=== PATIENT | female | born 1980 | race Caucasian/White ===

== ENCOUNTER → 2016-09-19 | Outpatient (CLI) | payer BC | LOC: RAD 11:31 | PROVIDERS: ATTEND Student in an Organized Health Care Education/Training Program | DX: E22.1 Hyperprolactinemia (principal) | CPT/HCPCS: 70553; A9577 ==

== ENCOUNTER 2016-10-07 | Emergency (ER) | payer BC ==
[2016-10-07 00:18] VITALS: BP 124/83
== END 2016-10-07 02:09 | disposition left against medical advice (07) ==
LOC: ER
DX: Z53.21 Procedure and treatment not carried out due to patient leaving prior to being seen by health care provider (principal)

== ENCOUNTER 2016-10-25 15:10 | Observation (INO) | payer BC ==
[2016-10-25] MEDS ORDERED: NORMAL SALINE 1000 ML 1,000 ML IV ONE (15:37)
--- NOTE | 2016-10-25 17:50 | ER Document Report ---
ED Syncope and Near Syncope - General Chief Complaint: Fainting Stated Complaint: HEADACHE Time Seen by Provider: 10/25/16 15:36 Mode of Arrival: Ambulatory Information source: Patient TRAVEL OUTSIDE OF THE [place] 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 Position/Activity at time of episode: Activity - WALKING Quality of pain: Achy, Dull Context: Collapsed, Confused after event, Lost consciousness. denies: , Seizure activity observed Duration of LOC (min): 7 Injury location: None Current symptoms: Headache, Lightheaded, Short of breath Similar symptoms previously: Yes - 2 d AGO, SIMILAR CIRCUMSTANCES Recently seen / treated by doctor: Yes - UNDER CARE OF HEM-ONC, Fe INFUSION SCHEDULED 10/29 - Related Data Allergies/Adverse Reactions: Penicillins Allergy (Verified 05/05/16 22:26) Past Medical History - General Information source: Patient - Social History Smoking Status: Unknown if Ever Smoked Frequency of alcohol use: Rare Drug Abuse: None Lives with: Family Family History: CVA, Hypertension Patient has suicidal ideation: No Patient has homicidal ideation: No - Past Medical History Cardiac Medical History: Reports: None Pulmonary Medical History: Reports: None Neurological Medical History: Reports: None. Denies: Hx Seizures Endocrine Medical History: Reports: None Renal/ Medical History: Reports: None. Denies: Hx Peritoneal Dialysis Malignancy Medical History: Reports: Other - CHRONIC ANEMIA, W/U UNDERWAY GI Medical History: Reports: None Musculoskeltal Medical History: Reports None Skin Medical History: Reports None Psychiatric Medical History: Reports: Hx Anxiety, Hx Bipolar Disorder, Hx Depression Traumatic Medical History: Reports: None Past Surgical History: Reports: Hx Bowel Surgery - Gastric bypass, Hx Cholecystectomy, Hx Gastric Bypass Surgery, Hx Tonsillectomy, Hx Tubal Ligation - Immunizations Immunizations up to date: Yes Hx Diphtheria, Pertussis, Tetanus Vaccination: Yes Review of Systems - Review of Systems Constitutional: Weakness EENT: No symptoms reported Cardiovascular: See HPI Respiratory: Short of breath Gastrointestinal: Nausea Genitourinary: No symptoms reported Female Genitourinary: No symptoms reported Musculoskeletal: No symptoms reported Skin: No symptoms reported Hematologic/Lymphatic: Anemia Neurological/Psychological: See HPI -: Yes All other systems reviewed and negative Physical Exam - Vital signs Vitals: Temp Pulse Resp BP Pulse Ox 97.5 F 72 16 125/79 100 10/25/16 15:24 10/25/16 15:24 10/25/16 15:24 10/25/16 15:24 10/25/16 15:24 Interpretation: Normal - General General appearance: Appears well, Alert In distress: None - HEENT Head: Normocephalic Eyes: Pale conjunctiva Ears: Normal Nasal: Normal Mouth/Lips: Normal Mucous membranes: Normal Neck: Normal - Respiratory Respiratory status: No respiratory distress Breath sounds: Normal - Cardiovascular Rhythm: Regular Heart sounds: Normal auscultation Murmur: No - Abdominal Inspection: Normal Distension: No distension Bowel sounds: Normal - Back Back: Normal - Extremities General upper extremity: Normal inspection General lower extremity: Normal inspection. No: Tender, Edema - Neurological Neuro grossly intact: Yes Cognition: Normal Orientation: AAOx4 - Psychological Associated symptoms: Normal affect, Normal mood - Skin Skin Temperature: Warm Skin Moisture: Dry Skin Color: Pale Skin Turgor: Elastic Course - Re-evaluation Re-evalutation: 10/25/16 22:19 Patient states she feels a little better. Results of laboratory and radiographic studies discussed. - Vital Signs Vital signs: Temp Pulse Resp BP Pulse Ox 98.0 F 74 15 124/80 99 10/25/16 19:28 10/25/16 19:10 10/25/16 22:23 10/25/16 22:23 10/25/16 22:23 - Laboratory Result Diagrams: 10/25/16 17:05 10/25/16 17:05 Laboratory results interpreted by me: 10/25/16 17:05 WBC 3.0 L Hgb 8.9 L Hct 28.2 L MCV 65 L MCH 20.3 L MCHC 31.4 L RDW 17.1 H - Diagnostic Test Radiology reviewed: Image reviewed, Reports reviewed - EKG Interpretation by Me EKG shows normal: Sinus rhythm, [place], Intervals, QRS Complexes, ST-T Waves Rate: Normal Rhythm: NSR - Consults DR. FRANCIS Time consulted: 22:28 Consulted provider: will come to ER Discharge - Discharge Clinical Impression: Syncope Qualifiers: Syncope type: unspecified Qualified Code(s): R55 - Syncope and collapse Admitting Provider: Hospitalist Unit Admitted: Telemetry Referrals: ERIN CUELLAR DO [Primary Care Provider] - Follow up as needed
[2016-10-25 18:07] LABS: ABSOLUTE EOSINOPHILS # (AUTO) 0.1 10^3/uL (0.0-0.6); ABSOLUTE LYMPHOCYTES (AUTO) 0.7 10^3/uL (0.5-4.7); ABSOLUTE MONOCYTES (AUTO) 0.3 10^3/uL (0.1-1.4); ABSOLUTE NEUT (AUTO) 1.9 10^3/uL (1.7-8.2); BASOPHILS % (AUTO) 0.3 % (0-2); EOSINOPHILS % (AUTO) 1.8 % (0-6); HEMATOCRIT 28.2 % (36.0-47.0); HEMOGLOBIN 8.9 g/dL (12.0-15.5); HGB HCT DIFFERENCE -1.5; LYMPHOCYTES % (AUTO) 24.2 % (13-45); MEAN CORPUSCULAR HEMOGLOBIN 20.3 pg (27.0-33.4); MEAN CORPUSCULAR HGB CONC 31.4 g/dL (32.0-36.0); MONOCYTES % (AUTO) 10.7 % (3-13); RED BLOOD COUNT 4.37 10^6/uL (3.72-5.28); RED CELL DISTRIBUTION WIDTH 17.1 % (11.5-14.0)
[2016-10-25 18:15] LABS: ANION GAP 11 (5-19); BLOOD UREA NITROGEN 7 mg/dL (7-20); CALCIUM 9.3 mg/dL (8.4-10.2); CARBON DIOXIDE 28 mmol/L (22-30); CHLORIDE 104 mmol/L (98-107); CREATININE RESULT 0.79 mg/dL (0.52-1.25); GLUCOSE 83 mg/dL (75-110); POTASSIUM 4.5 mmol/L (3.6-5.0); SODIUM 142.7 mmol/L (137-145)
[2016-10-25 18:21] LABS: ALCOHOL < 10 mg/dL (NONE DETECTED)
[2016-10-25 18:42] LABS: ANISOCYTOSIS 1+; HYPOCHROMASIA 1+; MICROCYTOSIS 3+; OVALOCYTES SLIGHT; TOXIC GRANULATION SLIGHT
[2016-10-25 18:43] LABS: MEAN CORPUSCULAR VOLUME 65 fl (80-97)
--- NOTE | 2016-10-25 19:08 | EKG REPORT ---
SEVERITY:- NORMAL ECG - SINUS RHYTHM : Confirmed by: Willian Abarca MD 25-Oct-2016 19:07:24
[2016-10-25 22:37] LABS: ADD ON TESTING BLD IN LAB ACKNOWLEDGE
[2016-10-25 23:09] LABS: ALANINE AMINOTRANSFERASE 31 U/L (9-52); ALBUMIN 4.2 g/dL (3.5-5.0); ALKALINE PHOSPHATASE 74 U/L (38-126); ASPARTATE AMINO TRANSFERASE 30 U/L (14-36); BILIRUBIN,DIRECT 0.3 mg/dL (0.0-0.4); BILIRUBIN,TOTAL 0.3 mg/dL (0.2-1.3); MAGNESIUM 2.2 mg/dL (1.6-2.3)
[2016-10-25 23:21] LABS: CREATINE KINASE MB 0.56 ng/mL (<4.55)
[2016-10-25 23:22] LABS: TROPONIN I < 0.012 ng/mL
[2016-10-25] MEDS ORDERED: DEXTROSE 5%-NORMAL SALINE 1,000 ML IV PRN (23:56)
--- NOTE | 2016-10-26 00:32 | PDOC H&P ---
History of Present Illness Admission Date/PCP: 10/25/16 22:[address] Demarcus [facility] Dr. Amina Baird Patient complains of: syncope History of Present Illness: RONNIE STOREY is a 36 year old female with underlying bipolar disorder , history of alcohol abuse, but currently not drinking, anxiety, and currently undergoing workup for chronic anemia, to receive iron infusion on the ninth of this month, who presents to the emergency room for evaluation of her second syncopal episode in the past 48-72 hours. Patient has been discussed with emergency room physician who evaluated the patient. 2 nights ago, as she was walking to bed, her vision "grayed out," and she felt herself falling. She woke up sometime later lying in an "awkward position" on her bed. Prior to that episode, she had some mild chest and abdominal pain and headache. Nausea but no vomiting; states she can't vomit since her gastric bypass. No fever chills, diarrhea or dysuria. States she has had episodes of her vision "graying out" in the past, but typically only on the periphery of her vision. During The episode 2 nights ago when she actually had a syncopal episode, her vision "totally grayed out." Patient is a book retailer, and, while at work the evening of the fifth, she had another syncopal episode. Same vision changes, although "much quicker this time." Denies any head trauma. States the episode was recorded on security camera work, and she was out for "7 minutes." Similar mild headache and chest pain prior to the episode this evening at work, but no abdominal pain. Currently complaining only of mild headache along with mild bilateral calf discomfort, which is a chronic problem for her. No evidence of orthostatic vital signs on emergency room documentation this evening. Solid food intake has been somewhat less than usual over the last several days, but liquid intake has been normal. No recent change in her medications. Compliant with same. With neither episode did she experience fecal or urinary incontinence, or tongue biting. Basically unremarkable neurologic history with no prior seizure , stroke, TIA, or mini stroke. Underwent Holter monitor exam in 2013 for palpitations. Study revealed only evidence of sinus tachycardia. Report is noted. States she was told to return on a when necessary basis. States she was seen in the emergency room last April and was told she had an "arrhythmia." Review of the emergency room visit revealed an EKG showing only normal sinus rhythm. States she was told to follow with her primary care provider about this. Has not had a repeat Holter monitor or other cardiac study. Was seen in the emergency room for binge drinking at that time. Other than EKGs and Holter monitor, no other cardiac workup, including stress test or echocardiogram. Basically an unremarkable cardiac history, with no previous myocardial infarction or congestive heart failure. No problems with hypertension. No history of pulmonary embolus or DVT. No recent long trip with prolonged inactivity, or unusual lower extremity swelling or tenderness. No family history of early coronary artery disease, or early cardiac . Denies underlying thyroid difficulty. Occasional caffeine intake, but not very much or very often. No use of alcohol tobacco or illicit drugs. Laboratory results are listed in [place] and are reviewed. X-ray summary results are listed below, with full report(s) reviewed. . EKG reviewed. Social history/personal habits: . 4 children. Employment and personal habits as noted above. Allergies/adverse reactions are listed in [facility] [place] and are reviewed. Uncertain if she can tolerate cephalosporins. Home medications discussed with patient. Home medications initially autopopulated into [employer] may not accurately reflect patient's true medications, dosages, and/or frequencies. technical support analyst to reconcile medications. REVIEW OF SYSTEMS: Constitutional: No fever or chills. Eyes: Wears contacts. ENT: No swallowing problems or complaints. No hearing problems or complaints. Pulmonary: No current complaints. Cardiovascular: See history and present illness. Gastrointestinal: See history and present illness. Skin: No current complaints, including rashes. Hematologic: Easy bruising. Neurologic: See history and present illness. Musculoskeletal: See history and present illness. Joint pain from arthritis. Psychiatric: Mild Anxiety Endocrine: No current complaints, including polyuria. Genitourinary: No current complaints, including dysuria. PHYSICAL EXAMINATION: 5 feet 9 inches tall. 81.3 kg. BMI 26.5 kg/m. Blood pressure 120/79. 98% saturation on room air. Respirations are 19 and unlabored. Pulse 85 and regular. Temperature 98.0. Well-nourished well-developed young female appearing approximately her stated age. Pleasant awake alert and cooperative. No obvious distress other than somewhat anxious. No agitation. Female emergency room nurse Marycruz is present. Male phone operator is present. Patient approves. Skin is warm and dry. No grossly obvious evidence of rash in areas of skin examined. No subcutaneous nodules palpated. ENT: Hearing grossly normal to normal conversation. Tongue midline on protrusion pink and slightly moist. No evidence of trauma to tongue. Eyes: No scleral icterus. Pupils equal and reactive to light at 4 mm. [place] conjunctivae. No raccoon eyes. Neck is supple and nontender to gentle active range of motion and palpation. Midline trachea. No palpable thyroid nodule mass enlargement or tenderness. Lymphatic: No palpable cervical or clavicular nodes. Psychiatric: Reasonable insight into acute and chronic medical issues. Oriented to time location and why here. Lungs: Auscultation reveals clear and equal breath sounds bilaterally. No use of accessory respiratory muscles. Cardiovascular: Heart regular rate and rhythm, without gallop murmur or rub. No carotid or abdominal aortic bruits. No ankle or pedal edema. palpable dorsalis pedis pulses. Abdomen: soft, slightly, distended nontender with positive bowel sounds. Unable to adequately evaluate abdomen for masses or organomegaly due to distention. Extremities: Hands and feet are warm and dry. Minimal bilateral calf tenderness to compression, without palpable venous cord. A chronic condition, without recent change, according to patient.. No grossly obvious visual evidence of calf swelling. Gentle manipulation of upper and lower extremities fails to reveal any obvious evidence of injury or instability to involved major joints. Neurologic: Cranial Nerves II through XII are grossly intact. Light touch intact at face, upper and lower extremities. Motor function of major muscle groups upper and lower extremities 5 over 5 and symmetric. Patellar reflexes absent. Absent Babinski. Past Medical History Cardiac Medical History: Reports: None Denies: Congestive Heart Failure, DVT, Myocardial Infarction, Hyperlipidema, Hypertension, Pulmonary Embolism Pulmonary Medical History: Reports: None Denies: Asthma, Chronic Obstructive Pulmonary Disease (COPD), Sleep Apnea EENT Medical History: Reports: Eyes - Wears contacts Denies: Ears, Throat Neurological Medical History: Reports: None Denies: Hemorrhagic CVA, Ischemic CVA, Seizures Endocrine Medical History: Reports: None Denies: Diabetes Mellitus Type 1, Diabetes Mellitus Type 2, Hyperthyroidism, Hypothyroidism Renal/ Medical History: Reports: None GI Medical History: Reports: Gastroesophageal Reflux Disease - Questionable mild reflux., Other - Recently discovered heme positive stool. Outpatient workup underway. Denies: Cirrhosis, Hepatitis, Peptic Ulcer Disease Musculoskeltal Medical History: Reports: None Denies: Arthritis Skin Medical History: Reports: None Psychiatric Medical History: Reports: Alcohol Dependency - History of; no alcohol use at present., Bipolar Disorder, Depression, General Anxiety Disorder Denies: Substance Abuse, Tobacco Dependency Traumatic Medical History: Reports: None Hematology: Reports: Anemia - Outpatient workup underway. Intravenous iron infusion October 29. Infectious Medical History: Denies: Clostridium Difficile, Hepatitis B, Hepatitis C, Methicillin- Resistant Staph Aureus Past Surgical History Past Surgical History: Reports: Cholecystectomy, Gastric Bypass Surgery, Tonsillectomy, Tubal Ligation Social History Information Source: Patient, Emergency Med Personnel, [facility] Records Lives with: Family Smoking Status: Unknown if Ever Smoked Frequency of Alcohol Use: None Drugs: None - Advance Directive Resuscitation Status: Full Code Surrogate healthcare decision maker:: Mother Family History Family History: CVA, Hypertension Parental Family History Reviewed: Yes - mother is hypertensive. Father is healthy. Children Family History Reviewed: Yes - Healthy Sibling(s) Family History Reviewed.: Yes - Healthy Medication/Allergy Home Medications: Bupropion HCl [Wellbutrin Sr 150 mg Tablet] 1 tab PO DAILY 10/26/16 Gabapentin [Neurontin] 600 mg PO TID 10/26/16 Lamotrigine [Lamictal] 150 mg PO BID 10/26/16 Lorazepam [Ativan 0.5 mg Tablet] 0.5 mg PO ASDIR PRN 10/26/16 Allergies/Adverse Reactions: Penicillins Allergy (Verified 05/05/16 22:26) Physical Exam Vital Signs: Temp Pulse Resp BP Pulse Ox 98.0 F 74 15 124/80 99 10/25/16 19:28 10/25/16 19:10 10/25/16 22:23 10/25/16 22:23 10/25/16 22:23 Results Impressions: Lung Scan-VQ NM 10/25/16 19:55 IMPRESSION: No ventilation-perfusion mismatches. Chest X-Ray 10/25/16 20:09 IMPRESSION: NO ACUTE RADIOGRAPHIC FINDING IN THE CHEST. Assessment & Plan - Diagnosis (1) Mechanical deep vein thrombosis (DVT) prophylaxis in place Is this a current diagnosis for this admission?: Yes (2) Headache Qualifiers: Headache type: unspecified Headache chronicity pattern: episodic headache Is this a current diagnosis for this admission?: YesPlan: With 2 syncopal episodes in 48-72 hours, will proceed with CT scan of brain without contrast. (3) Syncope Qualifiers: Syncope type: unspecified Qualified Code(s): R55 - Syncope and collapse Is this a current diagnosis for this admission?: YesPlan: Orthostatic vital signs every 4 hours while awake, starting later this morning. 2 more liters of IV fluid. Suspect may be cardiac related. I have strongly encouraged patient not to get out of bed without notifying staff , to avoid a fall with injury. Knee high SCDs for DVT prophylaxis; with patient young age, and the likelihood that she'll be discharged later today, along with risk for bleeding, will forego medical prophylaxis at this point. Impression and plans were discussed with patient, who concurs. Time spent in evaluation and management of patient: 63 minutes. (4) Bipolar disorder Qualifiers: Active/Remission status: remission status unspecified Qualified Code (s): F31.9 - Bipolar disorder, unspecified Is this a current diagnosis for this admission?: YesPlan: Resume home medications as appropriate once these have been determined and reviewed.
[2016-10-26] MEDS: ACETAMINOPHEN 325 MG TABLET PO PRN ×2 (02:46→08:21)
[2016-10-26 07:11] LABS: CHOLESTEROL 174.28 mg/dL (0-200); Direct HDL 55 mg/dL (>40); TRIGLYCERIDES 179 mg/dL (<150)
[2016-10-26 07:22] LABS: DIRECT LDL 72 mg/dL (<100)
[2016-10-26 07:24] LABS: VLDL CHOLESTEROL 35.8 mg/dL (10-31)
[2016-10-26 07:26] LABS: ABSOLUTE EOSINOPHILS # (AUTO) 0.1 10^3/uL (0.0-0.6); ABSOLUTE LYMPHOCYTES (AUTO) 0.7 10^3/uL (0.5-4.7); ABSOLUTE MONOCYTES (AUTO) 0.3 10^3/uL (0.1-1.4); ABSOLUTE NEUT (AUTO) 1.9 10^3/uL (1.7-8.2); BASOPHILS % (AUTO) 0.6 % (0-2); EOSINOPHILS % (AUTO) 2.3 % (0-6); HEMATOCRIT 25.3 % (36.0-47.0); HEMOGLOBIN 8.1 g/dL (12.0-15.5); LYMPHOCYTES % (AUTO) 22.8 % (13-45); MEAN CORPUSCULAR HEMOGLOBIN 20.4 pg (27.0-33.4); MEAN CORPUSCULAR HGB CONC 32.2 g/dL (32.0-36.0); MONOCYTES % (AUTO) 11.3 % (3-13); RED BLOOD COUNT 3.99 10^6/uL (3.72-5.28); RED CELL DISTRIBUTION WIDTH 17.1 % (11.5-14.0); WHITE BLOOD COUNT 3.1 10^3/uL (4.0-10.5)
[2016-10-26 07:33] LABS: ANISOCYTOSIS 1+; HYPOCHROMASIA 2+; MICROCYTOSIS 3+; OVALOCYTES 1+; POIKILOCYTOSIS 1+; TEAR DROP CELLS SLIGHT
[2016-10-26 07:36] LABS: MEAN CORPUSCULAR VOLUME 63 fl (80-97)
[2016-10-26 08:46] LABS: APPEARANCE,URINE SLIGHTLY-CLOUDY; BILIRUBIN,URINE NEGATIVE (NEGATIVE); GLUCOSE, URINE NEGATIVE (NEGATIVE); KETONES,URINE NEGATIVE (NEGATIVE); LEUKOCYTE ESTERASE,URINE TRACE (NEGATIVE); NITRITE,URINE POSITIVE (NEGATIVE); PROTEIN,URINE NEGATIVE (NEGATIVE); URINE SPECIFIC GRAVITY 1.009; UROBILINOGEN,URINE NEGATIVE mg/dL (<2.0)
[2016-10-26 08:58] LABS: URINE BARBITURATES SCREEN NEGATIVE; URINE METHADONE SCREEN NEGATIVE; URINE OPIATES LOW NEGATIVE; URINE PHENCYCLIDINE SCREEN NEGATIVE
[2016-10-26 09:10] VITALS: BP 100/70
[2016-10-26] MEDS ORDERED: DOCUSATE SODIUM 100 MG CAPSULE PO SCH (10:00)
--- NOTE | 2016-10-26 10:20 | PDOC DISCHARGE SUMMARY ---
General - Admit/Disc Date/PCP Admission Date/Primary Care Provider: 10/25/16 23:40 ERIN CUELLAR, DO Discharge Date: 10/26/16 - Discharge Diagnosis (1) Syncope Is this a current diagnosis for this admission?: YesSummary: Possibly secondary to autonomic insufficiency. Will need outpatient tilt table test (2) Anemia Is this a current diagnosis for this admission?: YesSummary: A she has iron deficiency anemia. She has a history of gastric bypass. (3) Bipolar disorder Is this a current diagnosis for this admission?: Yes - Additional Information Resuscitation Status: Full Code Discharge Diet: Regular Discharge Activity: Activity As Tolerated, Balance Activity w/Rest, Slowly Increase Activity History of Present Illness History of Present Illness: RONNIE STOREY is a 36 year old female who has had problems with syncope. The patient was at work when she had a syncopal episode. This lasted approximately 7 minutes. 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 She had no tonic-clonic movements. This is secondary episode the last month that she's had. It's been unrelated to her diet she's had no hypoglycemia. Hospital Course Hospital Course: 36-year-old female admitted with syncope 2 in the last month. The patient has not had any tonic-clonic movements. She's had no prodromal symptoms although doesn't times feel dizzy or lightheadedness she stands up quickly. Patient did not have orthostasis here in the emergency room by her description does have episodes of orthostatic type symptoms. This is suspicious for autonomic insufficiency because I discussed with the patient get an outpatient tilt table test. She will follow up with her primary care doctor and arrange this given that it is the weekend. The patient has not had any kind of postictal state and no tonic-clonic movements. Her blood sugars have been normal on here. She does have anemia but it is not significant enough to explain her syncopal episodes. Physical Exam Vital Signs: Temp Pulse Resp BP Pulse Ox 97.6 F 90 20 100/70 100 10/26/16 09:09 10/26/16 09:09 10/26/16 09:09 10/26/16 09:09 10/26/16 09:09 Intake & Output 10/25/16 10/26/16 10/27/16 06:59 06:59 06:59 Intake Total 735 Output Total 200 Balance 535 Weight 79.9 kg General appearance: PRESENT: no acute distress, well-developed, well-nourished Head exam: PRESENT: atraumatic, normocephalic Eye exam: PRESENT: conjunctiva pink, EOMI, PERRLA. ABSENT: scleral icterus Mouth exam: PRESENT: moist, tongue midline Neck exam: ABSENT: carotid bruit, JVD, lymphadenopathy, thyromegaly Respiratory exam: PRESENT: clear to auscultation luis. ABSENT: rales, rhonchi, wheezes Cardiovascular exam: PRESENT: RRR. ABSENT: diastolic murmur, rubs, systolic murmur GI/Abdominal exam: PRESENT: normal bowel sounds, soft. ABSENT: distended, guarding, mass, organolmegaly, rebound, tenderness Extremities exam: ABSENT: calf tenderness, clubbing, pedal edema Neurological exam: PRESENT: alert, awake, oriented to person, oriented to place , oriented to time, oriented to situation, CN II-XII grossly intact. ABSENT: motor sensory deficit Psychiatric exam: PRESENT: appropriate affect Skin exam: PRESENT: dry, intact, warm. ABSENT: cyanosis, rash Results Laboratory Results: 10/26/16 06:40 10/26/16 10/26/16 10/26/16 06:40 06:40 08:20 WBC 3.1 L RBC 3.99 Hgb 8.1 L Hct 25.3 L MCV 63 L MCH 20.4 L MCHC 32.2 RDW 17.1 H Plt Count 290 Seg Neutrophils % 63.0 Lymphocytes % 22.8 Monocytes % 11.3 Eosinophils % 2.3 Basophils % 0.6 Absolute Neutrophils 1.9 Absolute Lymphocytes 0.7 Absolute Monocytes 0.3 Absolute Eosinophils 0.1 Absolute Basophils 0.0 Triglycerides 179 H Cholesterol 174.28 LDL Cholesterol Direct 72 VLDL Cholesterol 35.8 H HDL Cholesterol 55 Urine Color YELLOW Urine Appearance SLIGHTLY-CLOUDY Urine pH 7.0 Ur Specific [place] 1.009 Urine Protein NEGATIVE Urine Glucose (UA) NEGATIVE Urine Ketones NEGATIVE Urine Blood NEGATIVE Urine Nitrite POSITIVE H Ur Leukocyte Esterase TRACE H Urine WBC (Auto) 29 Urine RBC (Auto) 3 10/26/16 10/26/16 00:13 06:40 Troponin I < 0.012 < 0.012 Impressions: Lung Scan-VQ NM 10/25/16 19:55 IMPRESSION: No ventilation-perfusion mismatches. Chest X-Ray 10/25/16 20:09 IMPRESSION: NO ACUTE RADIOGRAPHIC FINDING IN THE CHEST. Head CT 10/26/16 00:00 IMPRESSION: No significant abnormality. Qualifiers PATEINT BEING DISCHARGED WITH ANY OF THE FOLLOWING DIAGNOSIS?: No Plan Discharge Plan: Patient will follow up with her primary care doctor this week and set up an outpatient tilt table test for evaluation of possible autonomic insufficiency. Time Spent: Less than 30 Minutes
[2016-10-28 15:53] LABS: PATH REVIEW PATHOLOGIST REVIEWED
[2016-10-28 15:54] LABS: PATH REVIEW PATHOLOGIST REVIEWED
== END 2016-10-26 10:47 | disposition home or self-care (01) ==
LOC: ER 15:10 → UNDOADMOB 22:43 → EH 22:43 → 4S 10-26 02:26
PROVIDERS: ADMIT Family Medicine; ATTEND Family Medicine
DX: R55 Syncope and collapse (principal); D50.9 Iron deficiency anemia, unspecified; Z98.84 Bariatric surgery status; F31.9 Bipolar disorder, unspecified; R51 Headache; R29.898 Other symptoms and signs involving the musculoskeletal system; R06.02 Shortness of breath; F41.9 Anxiety disorder, unspecified; R11.0 Nausea; M19.90 Unspecified osteoarthritis, unspecified site; F10.21 Alcohol dependence, in remission; Z98.51 Tubal ligation status; Z90.49 Acquired absence of other specified parts of digestive tract; Z82.49 Family history of ischemic heart disease and other diseases of the circulatory system; Z86.73 Personal history of transient ischemic attack (TIA), and cerebral infarction without residual deficits
CPT/HCPCS: 93005; 99285; 96360; 36415 ×2; 82553; 80307 ×2; 82550; 83735; 84443; 84703; 85025 ×2; 80076; 80048; 81001; 84484 ×2; 85379; 80061; 71010; 78582; 70450; 93010; G0378 ×2; A9540; A9567; J7030; Q9969

== ENCOUNTER 2017-03-20 16:37 | Emergency (ER) | payer BC ==
--- NOTE | 2017-03-20 17:45 | ER Document Report ---
ED Medical Screen (RME) - General Chief Complaint: Anxiety Stated Complaint: CHEST PAIN,SHORTNESS OF BREATH Time Seen by Provider: 03/20/17 17:40 Notes[facility] started latuda. Started drinking on Friday, drinking vodka 1/2 a 5th, Friday had a 5th, Friday 1/2 a 5th and arrested for DUI. Admits to with plans to take medications at home. PMH: etoh dependence and bipolar TRAVEL OUTSIDE OF THE [place] IN LAST 30 DAYS: No - Related Data Allergies/Adverse Reactions: Penicillins Allergy (Verified 03/20/17 16:45) Past Medical History - Past Medical History Cardiac Medical History: Denies: Hx Congestive Heart Failure, Hx DVT, Hx Heart Attack, Hx Hypercholesterolemia, Hx Hypertension, Hx Pulmonary Embolism Pulmonary Medical History: Denies: Hx Asthma, Hx COPD, Hx Sleep Apnea Neurological Medical History: Denies: Hx Seizures Endocrine Medical History: Denies: Hx Diabetes Mellitus Type 1, Hx Diabetes Mellitus Type 2, Hx Hyperthyroidism, Hx Hypothyroidism Renal/ Medical History: Denies: Hx Peritoneal Dialysis GI Medical History: Reports: Hx Gastroesophageal Reflux Disease - Questionable mild reflux.. Denies: Hx Cirrhosis, Hx Hepatitis Musculoskeltal Medical History: Denies Hx Arthritis Psychiatric Medical History: Reports: Hx Anxiety, Hx Bipolar Disorder, Hx Depression Infectious Medical History: Denies: Hx C-Diff, Hx Hepatitis, Hx MRSA Past Surgical History: Reports: Hx Bowel Surgery - Gastric bypass, Hx Cholecystectomy, Hx Gastric Bypass Surgery, Hx Tonsillectomy, Hx Tubal Ligation - Immunizations Immunizations up to date: Yes Hx Diphtheria, Pertussis, Tetanus Vaccination: Yes Physical Exam - Vital signs Vitals: Temp Pulse Resp BP Pulse Ox 97.9 F 58 L 18 124/79 96 03/20/17 16:43 03/20/17 16:43 03/20/17 16:43 03/20/17 16:43 03/20/17 16:43 - Psychological Associated symptoms: Agitated, Anxious Course - Vital Signs Vital signs: Temp Pulse Resp BP Pulse Ox 97.9 F 58 L 18 124/79 96 03/20/17 16:43 03/20/17 16:43 03/20/17 16:43 03/20/17 16:43 03/20/17 16:43 Doctor's Discharge - Discharge Instructions: Anxiety ([facility])
[2017-03-20 18:41] LABS: ABSOLUTE LYMPHOCYTES (AUTO) 0.9 10^3/uL (0.5-4.7); ABSOLUTE MONOCYTES (AUTO) 0.4 10^3/uL (0.1-1.4); ABSOLUTE NEUT (AUTO) 4.3 10^3/uL (1.7-8.2); BASOPHILS % (AUTO) 0.4 % (0-2); EOSINOPHILS % (AUTO) 0.3 % (0-6); HEMATOCRIT 42.1 % (36.0-47.0); HEMOGLOBIN 14.5 g/dL (12.0-15.5); HGB HCT DIFFERENCE 1.4; LYMPHOCYTES % (AUTO) 16.5 % (13-45); MEAN CORPUSCULAR HGB CONC 34.4 g/dL (32.0-36.0); MEAN CORPUSCULAR VOLUME 90 fl (80-97); MONOCYTES % (AUTO) 6.8 % (3-13); RED BLOOD COUNT 4.68 10^6/uL (3.72-5.28); RED CELL DISTRIBUTION WIDTH 13.1 % (11.5-14.0); WHITE BLOOD COUNT 5.6 10^3/uL (4.0-10.5)
[2017-03-20 18:48] LABS: APPEARANCE,URINE CLOUDY; BILIRUBIN,URINE NEGATIVE (NEGATIVE); GLUCOSE, URINE NEGATIVE (NEGATIVE); KETONES,URINE 80 mg/dL (NEGATIVE); LEUKOCYTE ESTERASE,URINE MODERATE (NEGATIVE); NITRITE,URINE NEGATIVE (NEGATIVE); PROTEIN,URINE 100 mg/dL (NEGATIVE); URINE SPECIFIC GRAVITY 1.014
--- NOTE | 2017-03-20 19:00 | ER Document Report ---
ED Psych Disorder / Suicide - General Chief Complaint: Anxiety Stated Complaint: CHEST PAIN,SHORTNESS OF BREATH Time Seen by Provider: 03/20/17 17:40 Notes: The patient is a 36-year-old female, past medical history bipolar, anxiety, chronic alcoholism, presents with increased anxiety and binge drinking for the past 5 days. She was prescribed Latuda by her therapist at [facility], but her insurance will not cover it. Patient says that she feels intermittent chest pain shortness of breath after she drinks a lot of alcohol. Patient is not having any suicidal or homicidal ideation or signs of withdrawal at this time. She has been in alcohol detox before. She denies nausea, vomiting, fevers, hallucinations, rash, back pain or headache. TRAVEL OUTSIDE OF THE [place] IN LAST 30 DAYS: No - Related Data Allergies/Adverse Reactions: Penicillins Allergy (Verified 03/20/17 16:45) Past Medical History - General Information source: Patient - Social History Smoking Status: Never Smoker Chew tobacco use (# tins/day): No Frequency of alcohol use: Heavy Drug Abuse: None Family History: CVA, Hypertension - Past Medical History Cardiac Medical History: Denies: Hx Congestive Heart Failure, Hx DVT, Hx Heart Attack, Hx Hypercholesterolemia, Hx Hypertension, Hx Pulmonary Embolism Pulmonary Medical History: Denies: Hx Asthma, Hx COPD, Hx Sleep Apnea Neurological Medical History: Denies: Hx Seizures Endocrine Medical History: Denies: Hx Diabetes Mellitus Type 1, Hx Diabetes Mellitus Type 2, Hx Hyperthyroidism, Hx Hypothyroidism Renal/ Medical History: Denies: Hx Peritoneal Dialysis GI Medical History: Reports: Hx Gastroesophageal Reflux Disease - Questionable mild reflux.. Denies: Hx Cirrhosis, Hx Hepatitis Musculoskeltal Medical History: Denies Hx Arthritis Psychiatric Medical History: Reports: Hx Anxiety, Hx Bipolar Disorder, Hx Depression Infectious Medical History: Denies: Hx C-Diff, Hx Hepatitis, Hx MRSA Past Surgical History: Reports: Hx Abdominal Surgery - Gastric bypass, Hx Bowel Surgery - Gastric bypass, Hx Cholecystectomy, Hx Gastric Bypass Surgery, Hx Tonsillectomy, Hx Tubal Ligation - Immunizations Immunizations up to date: Yes Hx Diphtheria, Pertussis, Tetanus Vaccination: Yes Review of Systems - Review of Systems Notes: REVIEW OF SYSTEMS: CONSTITUTIONAL: -fevers, -chills EENT: -eye pain, -difficulty swallowing, -nasal congestion CARDIOVASCULAR: +chest pain, -syncope. RESPIRATORY: -cough, +SOB GASTROINTESTINAL: -abdominal pain, -nausea, -vomiting, -diarrhea GENITOURINARY: -dysuria, -hematuria MUSCULOSKELETAL: -back pain, -neck pain SKIN: -rash or skin lesions. HEMATOLOGIC: -easy bruising or bleeding. LYMPHATIC: -swollen, enlarged glands. NEUROLOGICAL: -altered mental status or loss of consciousness, -headache, - neurologic symptoms PSYCHIATRIC: +anxiety, -depression, +heavy ETOH abuse ALL OTHER SYSTEMS REVIEWED AND NEGATIVE. Physical Exam - Vital signs Vitals: Temp Pulse Resp BP Pulse Ox 97.9 F 58 L 18 124/79 96 03/20/17 16:43 03/20/17 16:43 03/20/17 16:43 03/20/17 16:43 03/20/17 16:43 - Notes Notes: PHYSICAL EXAMINATION: GENERAL: Well-appearing, well-nourished and in no acute distress. HEAD: Atraumatic, normocephalic. EYES: Pupils equal round and reactive to light, extraocular movements intact, sclera anicteric, conjunctiva are normal. ENT: nares patent, oropharynx clear without exudates. Moist mucous membranes. NECK: Normal range of motion, supple without lymphadenopathy LUNGS: Breath sounds clear to auscultation bilaterally and equal. No wheezes rales or rhonchi. HEART: Regular rate and rhythm without murmurs ABDOMEN: Soft, nontender, normoactive bowel sounds. No guarding, no rebound. No masses appreciated. EXTREMITIES: Normal range of motion, no pitting or edema. No cyanosis. NEUROLOGICAL: Cranial nerves grossly intact. Normal speech, normal gait. Normal sensory and motor exams. PSYCH: Normal mood, normal affect. SKIN: Warm, Dry, normal turgor, no rashes or lesions noted. Course - Re-evaluation Re-evalutation: Patient appears well. Her EKG, chest x-ray and troponin did not show evidence of active ischemia. She is PERC negative and symptoms are atypical for aortic dissection at this time. Instructed patient to follow-up with [facility] to get help with her alcoholism. - Vital Signs Vital signs: Temp Pulse Resp BP Pulse Ox 97.9 F 58 L 18 124/79 96 03/20/17 16:43 03/20/17 16:43 03/20/17 16:43 03/20/17 16:43 03/20/17 16:43 - Laboratory Result Diagrams: 03/20/17 18:12 03/20/17 18:12 Laboratory results interpreted by me: 03/20/17 03/20/17 18:12 18:12 Potassium 3.5 L Urine Protein 100 H Urine Ketones 80 H Urine Blood LARGE H Urine Urobilinogen 2.0 H Ur Leukocyte Esterase MODERATE H Salicylates < 1.0 L Acetaminophen < 10 L - Diagnostic Test Radiology reviewed: Image reviewed, Reports reviewed - EKG Interpretation by Me EKG shows normal: Sinus rhythm, [place], Intervals, QRS Complexes, ST-T Waves Rate: Normal Discharge - Discharge Clinical Impression: Anxiety, Alcohol use Chest pain Qualifiers: Chest pain type: unspecified Qualified Code(s): R07.9 - Chest pain, unspecified Condition: Stable Disposition: HOME, SELF-CARE Instructions: Anxiety ([facility]) Additional Instructions: Drink plenty of fluids to stay hydrated. Take all of your psychiatric medications. If you want to get help with your alcohol problem, go to [facility] for detox. CHEST PAIN OF UNCLEAR CAUSE: The exact cause of your chest pain isn't clear. Fortunately, there is no evidence of a dangerous medical condition. Further testing may be required to find the source of the pain. Most often, we find that this pain is coming from the chest wall -- the muscles or rib joints in the chest. But chest pain can come from the lung and lung lining, the esophagus, the heart valves or heart lining, and even the stomach or gallbladder. Rest. Eat lightly until the pain is gone. We may prescribe medicine for pain and inflammation. You should call the physician immediately if the pain radiates to the shoulder, jaw or arms; if you start to run a fever or develop a cough; or if you develop shortness of breath, or other new or alarming symptoms. NORMAL EXAM AND WORKUP: At this time, your examination and workup show no significant abnormality. No significant abnormal physical findings were noted. All laboratory, EKG, and imaging (x-ray, CT scans, ultrasound) studies that were ordered show no significant abnormality. Although your examination and all studies that were ordered showed no significant abnormal finding, there are no examinations and no studies that are 100% accurate. There is always the possibility that some abnormality could exist and not be detected with physical examination or within the limits and capabilities of laboratory and other studies. You should return or follow up as you were instructed on your visit today for further evaluation if your symptoms do not resolve. CHEST WALL PAIN: Your chest pain may be coming from the chest wall. This is often caused by straining the muscles or joints in the chest during physical activity, direct trauma, coughing, or vigorous vomiting. Persons with arthritis are especially prone to this type of pain, due to inflammation of the cartilage joints near the breast bone. Occasionally, no cause can be found. Rest from strenuous physical activity. This kind of chest pain is usually made worse by movement of the chest. Depending on the symptoms, we may prescribe medicine for pain, muscle relaxation, and antiinflammatory effects. If the pain is new, and seems to be due to muscle strain, cold packs can help. Otherwise, apply gentle warmth to the painful area for 15 minutes every hour or two. You should call contact the doctor immediately if things change. Further evaluation is needed if you develop a fever or cough, if the nature of the pain changes, or if you become short of breath. FOLLOW-UP CARE: If you have been referred to a physician for follow-up care, call the physician s office for an appointment as you were instructed or within the next two days. If you experience worsening or a significant change in your symptoms, notify the physician immediately or return to the Emergency Department at any time for re-evaluation. CHRONIC ALCOHOLISM and ALCOHOL ABUSE: Your evaluation reveals evidence of chronic alcoholism, an addiction to alcohol. The tendency to alcoholism may be inherited. Chronic use of alcohol weakens muscles, causes fatty deposits in the liver , damages the stomach, makes you more prone to infections, and can cause defects in unborn children. In the long run, brain atrophy and cirrhosis of the liver result. You are also at greater risk for certain types of cancer, such as cancer of the mouth, throat, stomach, and liver. Counselling services are available to help you. In-hospital treatment programs often help. Support groups such as Alcoholics Anonymous can be very useful in beating this addiction. Your physician can make a referral for you. As alcoholics often are prone to other addictions, you should discuss your use of any other medications with the doctor. ALCOHOL WITHDRAWAL: Your symptoms are caused by alcohol withdrawal. After a period of frequent drinking, the brain and body are changed by the alcohol. When you quit or reduce your drinking, the nervous system becomes unstable. Withdrawal symptoms can start a few hours after your last drink, but sometimes don't begin until a couple of days later. Symptoms can include shakiness, sweating, insomnia, nausea , vomiting, fearfulness, hallucinations, and seizures. In addition to the acute effects of alcohol withdrawal, we often have to deal with the medical effects of alcoholism. These problems often include dehydration, stomach irritation, intestinal bleeding, low blood sugar, liver disease, and pancreas inflammation. Treatment for alcohol withdrawal includes mild sedatives, vitamins, and fluids. You need to be with someone who can help if symptoms become severe. Many patients can withdraw at home. Admission to the hospital or a detox facility may be necessary if withdrawal symptoms are severe and uncontrollable. Abstaining from alcohol is the only effective long-term treatment. If you start drinking again, you will not be able to control yourself after the first drink. Treatment programs are available. In addition, many alcoholics benefit from Alcoholics Anonymous or other support groups available through your counselor or christian patient relations liaison. [facility] and [facility]TE[facility] are support groups for friends and family members of an alcoholic. Go to the emergency room if you develop persistent vomiting, severe abdominal pain, fever, shortness of breath, hallucinations, uncontrollable tremors, or seizures. INSTRUCTIONS FOR HOME CARE FOLLOWING DRUG OVERDOSAGE: The doctor feels it's safe for you to go home. You will need to be observed. If charcoal and a laxative was given to you, expect some loose black stools soon. Take no medications unless approved by a physician, including alcohol. If drowsy, lie on your stomach or side for sleeping to avoid aspiration if vomiting occurs. Take only liquids by mouth until there is no more nausea. FOR THE OBSERVER: Observe the patient for the next 24 hours and call or go to the hospital if any of the following are noted: prolonged or repeated vomiting, difficulty in arousing, convulsions (seizures or fits), fever, persistent cough, breathing that is too slow or too rapid, or confused or bizarre behavior. If a counselling visit has been arranged, make sure the patient attends. Call the physician or poison control if you have questions. FOLLOW-UP CARE: If you have been referred to a physician for follow-up care, call the physician s office for an appointment as you were instructed or within the next two days. If you experience worsening or a significant change in your symptoms, notify the physician immediately or return to the Emergency Department at any time for re-evaluation. Referrals: ERIN CUELLAR, [Primary Care Provider] - Follow up as needed [facility] [Outside] - Follow up as needed
[2017-03-20 19:02] LABS: ALANINE AMINOTRANSFERASE 34 U/L (9-52); ALBUMIN 4.6 g/dL (3.5-5.0); ALKALINE PHOSPHATASE 101 U/L (38-126); ANION GAP 14 (5-19); ASPARTATE AMINO TRANSFERASE 34 U/L (14-36); BILIRUBIN,DIRECT 0.4 mg/dL (0.0-0.4); BLOOD UREA NITROGEN 7 mg/dL (7-20); CALCIUM 9.9 mg/dL (8.4-10.2); CARBON DIOXIDE 28 mmol/L (22-30); CHLORIDE 98 mmol/L (98-107); CREATININE RESULT 0.71 mg/dL (0.52-1.25); GLUCOSE 101 mg/dL (75-110); POTASSIUM 3.5 mmol/L (3.6-5.0); SODIUM 139.8 mmol/L (137-145); TOTAL PROTEIN 7.1 g/dL (6.3-8.2)
[2017-03-20 19:03] LABS: ALCOHOL < 10 mg/dL (NONE DETECTED)
[2017-03-20 19:06] LABS: URINE BARBITURATES SCREEN NEGATIVE; URINE METHADONE SCREEN NEGATIVE; URINE OPIATES LOW NEGATIVE; URINE PHENCYCLIDINE SCREEN NEGATIVE
[2017-03-20] MEDS ORDERED: DEXTROSE 5%-1/2 NORMAL SALINE 1,000 ML IV ONE (19:07)
[2017-03-20] MEDS ORDERED: HYDROXYZINE PAMOATE 25 MG CAPSULE PO ONE (19:08)
[2017-03-20] MEDS ORDERED: LURASIDONE HCL 40 MG TABLET PO ONE (19:09)
[2017-03-20] MEDS ORDERED: GABAPENTIN 300 MG CAPSULE PO ONE (19:12)
[2017-03-20] MEDS ORDERED: LORAZEPAM 0.5 MG TABLET PO ONE (19:43)
[2017-03-20 21:11] VITALS: BP 103/70
--- NOTE | 2017-03-21 03:57 | EKG REPORT ---
SEVERITY:- NORMAL ECG - SINUS RHYTHM : Confirmed by: Mya Hopper MD 21-Mar-2017 03:56:27
== END 2017-03-20 21:15 | disposition home or self-care (01) ==
LOC: ER 16:37
DX: F41.9 Anxiety disorder, unspecified (principal); R07.9 Chest pain, unspecified; F10.20 Alcohol dependence, uncomplicated; R06.02 Shortness of breath; Z88.0 Allergy status to penicillin; Z98.84 Bariatric surgery status; Z90.49 Acquired absence of other specified parts of digestive tract; Z98.51 Tubal ligation status
CPT/HCPCS: 93005; 99284; 96365; 36415; 80307 ×4; 85025; 81025; 80053; 81001; 84484; 93010; J3490

== ENCOUNTER 2017-09-09 09:54 | Emergency (ER) | payer BC ==
[2017-09-09] MEDS ORDERED: IPRATROPIUM/ALBUTEROL 0.5-2.5 MG/3 ML AMPUL NEB ONE (10:06)
--- NOTE | 2017-09-09 10:09 | ER Document Report ---
ED Medical Screen (RME) - General Chief Complaint: Breathing Difficulty Stated Complaint: SHORTNESS OF BREATH, CHEST/BACK PAIN Time Seen by Provider: 09/09/17 09:59 Mode of Arrival: Wheelchair Information source: Patient Notes: This is a 36-year-old female presents to the emergency room with sharp chest pain and shortness of breath. For the past 4-5 days. Patient does report being evaluated at urgent care and having to x-rays. She states the last one showed some fluid in the left lung. She was placed on doxycycline and Flexeril and has had no improvement in the symptoms and she states it has progressively gotten worse. Medications: Lamictal, Wellbutrin, Celexa, gabapentin, multivitamin, doxycycline, Flexeril Allergies: Penicillin TRAVEL OUTSIDE OF THE [place] IN LAST 30 DAYS: No - Related Data Allergies/Adverse Reactions: Penicillins Allergy (Verified 09/09/17 09:57) Past Medical History - Social History Chew tobacco use (# tins/day): No Frequency of alcohol use: None Drug Abuse: None - Past Medical History Cardiac Medical History: Denies: Hx Congestive Heart Failure, Hx DVT, Hx Heart Attack, Hx Hypercholesterolemia, Hx Hypertension, Hx Pulmonary Embolism Pulmonary Medical History: Denies: Hx Asthma, Hx COPD, Hx Sleep Apnea Neurological Medical History: Denies: Hx Seizures Endocrine Medical History: Denies: Hx Diabetes Mellitus Type 1, Hx Diabetes Mellitus Type 2, Hx Hyperthyroidism, Hx Hypothyroidism Renal/ Medical History: Denies: Hx Peritoneal Dialysis GI Medical History: Reports: Hx Gastroesophageal Reflux Disease - Questionable mild reflux.. Denies: Hx Cirrhosis, Hx Hepatitis Musculoskeltal Medical History: Denies Hx Arthritis Psychiatric Medical History: Reports: Hx Anxiety, Hx Bipolar Disorder, Hx Depression Infectious Medical History: Denies: Hx C-Diff, Hx Hepatitis, Hx MRSA Past Surgical History: Reports: Hx Abdominal Surgery - Gastric bypass, Hx Bowel Surgery - Gastric bypass, Hx Cholecystectomy, Hx Gastric Bypass Surgery, Hx Tonsillectomy, Hx Tubal Ligation - Immunizations Immunizations up to date: Yes Hx Diphtheria, Pertussis, Tetanus Vaccination: Yes Physical Exam - Vital signs Vitals: Temp Pulse Resp BP Pulse Ox 98.6 F 93 24 H 109/71 100 09/09/17 09:59 09/09/17 09:59 09/09/17 09:59 09/09/17 09:59 09/09/17 09:59 Course - Vital Signs Vital signs: Temp Pulse Resp BP Pulse Ox 98.6 F 93 24 H 109/71 100 09/09/17 09:59 09/09/17 09:59 09/09/17 09:59 09/09/17 09:59 09/09/17 09:59
--- NOTE | 2017-09-09 10:26 | ER Document Report ---
ED Respiratory Problem - General Chief Complaint: Breathing Difficulty Stated Complaint: SHORTNESS OF BREATH, CHEST/BACK PAIN Time Seen by Provider: 09/09/17 09:59 Mode of Arrival: Wheelchair Information source: Patient Notes: 36-year-old female with past medical history as reported who states around 8 days ago she developed some runny nose, congestion, and coughing. She started to have some pain in the bilateral lower anterior ribs as well as a substernal area around 5 days ago. She was seen in urgent care and prescribed initially some Flexeril and a steroid prescription. She then returned the next day with an x-ray of the chest showing may be some fluid in the lung at the left lower base and was started on doxycycline. Patient denies any nausea, vomiting, or fevers. She denies any fevers, vomiting, calf pain or leg swelling, recent trips or travel. She states her grandmother was diagnosed with blood clots. TRAVEL OUTSIDE OF THE [place] IN LAST 30 DAYS: No - HPI Patient complains to provider of: Chest pain, Short of breath Onset: Other - See above Initiating Event: Other - See above Quality of pain: Achy Severity: Mild Pain Level: 1 Context: Other - See above Short of Breath: Mild Chest pain/discomfort: Center, Worse with deep breaths Cough: Nonproductive Sputum amount: None Associated symptoms: Other - See above Similar symptoms previously: Yes Recently seen / treated by doctor: Yes - Related Data Allergies/Adverse Reactions: Penicillins Allergy (Verified 09/09/17 09:57) Past Medical History - General Information source: Patient - Social History Smoking Status: Never Smoker Cigarette use (# per day): No Chew tobacco use (# tins/day): No Smoking Education Provided: No Frequency of alcohol use: None Drug Abuse: None Family History: CVA, Hypertension Patient has suicidal ideation: No Patient has homicidal ideation: No - Past Medical History Cardiac Medical History: Denies: Hx Congestive Heart Failure, Hx DVT, Hx Heart Attack, Hx Hypercholesterolemia, Hx Hypertension, Hx Pulmonary Embolism Pulmonary Medical History: Denies: Hx Asthma, Hx COPD, Hx Sleep Apnea Neurological Medical History: Denies: Hx Seizures Endocrine Medical History: Denies: Hx Diabetes Mellitus Type 1, Hx Diabetes Mellitus Type 2, Hx Hyperthyroidism, Hx Hypothyroidism Renal/ Medical History: Denies: Hx Peritoneal Dialysis GI Medical History: Reports: Hx Gastroesophageal Reflux Disease - Questionable mild reflux.. Denies: Hx Cirrhosis, Hx Hepatitis Musculoskeltal Medical History: Denies Hx Arthritis Psychiatric Medical History: Reports: Hx Anxiety, Hx Bipolar Disorder, Hx Depression Infectious Medical History: Denies: Hx C-Diff, Hx Hepatitis, Hx MRSA Past Surgical History: Reports: Hx Abdominal Surgery - Gastric bypass, Hx Bowel Surgery - Gastric bypass, Hx Cholecystectomy, Hx Gastric Bypass Surgery, Hx Tonsillectomy, Hx Tubal Ligation - Immunizations Immunizations up to date: Yes Hx Diphtheria, Pertussis, Tetanus Vaccination: Yes Review of Systems - Review of Systems Constitutional: denies: Fever EENT: Nose congestion, Nose discharge. denies: Eye discharge Cardiovascular: denies: Palpitations, Heart racing Respiratory: Cough, Hurts to breathe, Short of breath. denies: Hemoptysis Gastrointestinal: denies: Vomiting Genitourinary: denies: Dysuria Musculoskeletal: denies: Leg swelling Skin: Other - no hives. denies: Rash Neurological/Psychological: Other - no slurred speech -: Yes All other systems reviewed and negative Physical Exam - Vital signs Vitals: Temp Pulse Resp BP Pulse Ox 98.6 F 93 24 H 109/71 100 09/09/17 09:59 09/09/17 09:59 09/09/17 09:59 09/09/17 09:59 09/09/17 09:59 Notes: Reviewed vital signs and nursing note as charted by RN. CONSTITUTIONAL: Alert and oriented and responds appropriately to questions. Well -appearing; well-nourished HEAD: Normocephalic; atraumatic EYES: PERRL; Conjunctivae clear, sclerae non-icteric ENT: Normal nose; no rhinorrhea NECK: Supple without meningismus; non-tender; no cervical lymphadenopathy, no masses CARD: Regular rate and rhythm; no murmurs RESP: Normal chest excursion without splinting or tachypnea; breath sounds clear and equal bilaterally; no wheezes, no rhonchi, no rales ABD/GI: Normal bowel sounds; non-distended; soft, non-tender BACK: The back appears normal and is non-tender to palpation EXT: Normal ROM in all joints; non-tender to palpation; no edema SKIN: No acute lesions noted NEURO: Moves all extremities equally; Motor and sensory function intact PSYCH: The patient's mood and manner are appropriate. Grooming and personal hygiene are appropriate. Course - Re-evaluation Re-evalutation: 09/09/17 10:25 Given the history and physical examination, we will obtain basic labs, EKG, cardiac labs, x-ray of the chest, and reassess. Patient is not tachycardic with a room air oxygen saturation of 100%. I do have a low pretest probability for pulmonary embolism and have ordered a d-dimer. 09/09/17 11:20 EKG shows heart of 89, normal sinus rhythm, normal axis, no obvious ST elevation or depression, inverted T-wave in lead III 09/09/17 13:12 Labs and d-dimer is recorded. I have added a CT scan of the chest. Patient's pain is improved. Vital signs are stable. 09/09/17 15:57 CTA of the chest as recorded. Labs as recorded. Patient is now sitting up on the side of the bed crying stating that she is having pain at the bilateral aspects of her back. She states it radiates to the front. CT showed no dissection. Patient denies a history of kidney stones. Patient has had a cholecystectomy in the past. I have added a CT of the abdomen and pelvis. 09/09/17 16:55 CT scan of the abdomen and pelvis as recorded. It was limited by the lack of IV contrast given that the patient just had a CT scan with contrast previously. However, no dissection noted. Mild splenomegaly but the patient has no left upper quadrant tenderness. Patient's pain is mostly to the right posterior back and flank. No hydroureter or kidney stones present. Vitals are still stable with excellent oxygen saturation. Patient is asking for muscle relaxer. Given the extensive history, physical, laboratory values, imaging, patient will be discharged home with strict return precautions, short course of pain medications, and follow-up with the primary care physician. Patient is to continue taking her antibiotics. - Vital Signs Vital signs: Temp Pulse Resp BP Pulse Ox 98.6 F 82 26 H 112/77 94 09/09/17 09:59 09/09/17 10:33 09/09/17 12:00 09/09/17 11:01 09/09/17 12:00 - Laboratory Result Diagrams: 09/09/17 11:48 09/09/17 11:48 Laboratory results interpreted by me: 0309/09/17 09/09/17 11:48 11:48 11:48 Hgb 11.8 L Hct 34.1 L D-Dimer 2.12 H AST 43 H Discharge - Discharge Clinical Impression: Atypical chest pain, Bacterial pneumonia Back pain Qualifiers: Back pain location: back pain in other location Chronicity: acute Qualified Code(s): M54.9 - Dorsalgia, unspecified Condition: Good Disposition: HOME, SELF-CARE Additional Instructions: Come back immediately for any increased pain, change in location or quality of pain, fevers or vomiting, leg swelling, or any other acute problems. Please continue taking the antibiotics as prescribed. Please follow-up with your primary care physician for reassessment. You can start taking Valium and discontinue the Flexeril please. Prescriptions: Diazepam [Valium 5 mg Tablet] 5 mg PO Q8H PRN #15 tablet PRN Reason: Referrals: ERIN CUELLAR, [Primary Care Provider] - Follow up as needed
--- NOTE | 2017-09-09 11:11 | RADIOLOGY REPORT (SQ) ---
EXAM DESCRIPTION: CHEST PA/LAT COMPLETED DATE/TIME: 09/09/2017 11:01 am REASON FOR STUDY: sob COMPARISON: October 2016 EXAM PARAMETERS: NUMBER OF VIEWS: two views TECHNIQUE: Digital Frontal and Lateral radiographic views of the chest acquired. RADIATION DOSE: NA LIMITATIONS: Patient has made a shallow inspiration. FINDINGS: LUNGS AND PLEURA: There are linear densities in the left lung base most consistent with at electatic changes although I cannot exclude a minimal pneumonic infiltrate. Remaining lung hernandez ar e clear. MEDIASTINUM AND HILAR STRUCTURES: No masses or contour abnormalities. HEART AND VASCULAR STRUCTURES: There is some prominence of the cardiac silhouette and prominence of t he central pulmonary vessels presumably related to the shallow inspiration. BONES: No acute findings. HARDWARE: None in the chest. OTHER: No other significant finding. IMPRESSION: Linear densities in the left lung base most consistent with atelectatic changes although I cannot exclude a minimal pneumonic infiltrate. Remaining lung hernandez are clear. Other findings a s noted above TECHNICAL DOCUMENTATION: JOB ID: [id number] [employer]- All Rights Reserved Reading location - IP/workstation name: [email or web address]
[2017-09-09] MEDS ORDERED: KETOROLAC TROMETHAMINE INJ/PF 30 MG/1 ML SDV IV ONE (11:21)
[2017-09-09 12:03] LABS: ABSOLUTE EOSINOPHILS # (AUTO) 0.2 10^3/uL (0.0-0.6); ABSOLUTE LYMPHOCYTES (AUTO) 0.7 10^3/uL (0.5-4.7); ABSOLUTE MONOCYTES (AUTO) 0.4 10^3/uL (0.1-1.4); ABSOLUTE NEUT (AUTO) 3.8 10^3/uL (1.7-8.2); BASOPHILS % (AUTO) 0.3 % (0-2); EOSINOPHILS % (AUTO) 3.2 % (0-6); HEMATOCRIT 34.1 % (36.0-47.0); HEMOGLOBIN 11.8 g/dL (12.0-15.5); LYMPHOCYTES % (AUTO) 13.8 % (13-45); MEAN CORPUSCULAR HEMOGLOBIN 29.9 pg (27.0-33.4); MEAN CORPUSCULAR HGB CONC 34.5 g/dL (32.0-36.0); MEAN CORPUSCULAR VOLUME 87 fl (80-97); MONOCYTES % (AUTO) 7.8 % (3-13); PLATELET COUNT 293 10^3/uL (150-450); RED BLOOD COUNT 3.93 10^6/uL (3.72-5.28); RED CELL DISTRIBUTION WIDTH 12.8 % (11.5-14.0); SEGMENTED NEUTROPHILS % (AUTO) 74.9 % (42-78); TOTAL CELLS COUNTED % (AUTO) 100 %; WHITE BLOOD COUNT 5.1 10^3/uL (4.0-10.5)
[2017-09-09 12:27] LABS: ALANINE AMINOTRANSFERASE 40 U/L (9-52); ALBUMIN 3.6 g/dL (3.5-5.0); ALKALINE PHOSPHATASE 73 U/L (38-126); ANION GAP 10 (5-19); ASPARTATE AMINO TRANSFERASE 43 U/L (14-36); BILIRUBIN,DIRECT 0.3 mg/dL (0.0-0.4); BILIRUBIN,TOTAL 0.3 mg/dL (0.2-1.3); BLOOD UREA NITROGEN 11 mg/dL (7-20); CALCIUM 8.9 mg/dL (8.4-10.2); CARBON DIOXIDE 27 mmol/L (22-30); CHLORIDE 104 mmol/L (98-107); GLUCOSE 76 mg/dL (75-110); POTASSIUM 3.8 mmol/L (3.6-5.0); SODIUM 140.5 mmol/L (137-145); TOTAL PROTEIN 6.4 g/dL (6.3-8.2)
[2017-09-09 12:44] LABS: NT PRO BNP 41 pg/mL (<125)
[2017-09-09 12:49] LABS: TROPONIN I < 0.012 ng/mL
[2017-09-09] MEDS ORDERED: NORMAL SALINE 1000 ML 1,000 ML IV ONE ×2 (13:52→17:14)
[2017-09-09] MEDS ORDERED: MORPHINE SULFATE 10 MG/ML INJ IV ONE ×2 (13:53→15:56)
--- NOTE | 2017-09-09 15:28 | RADIOLOGY REPORT (SQ) ---
EXAM DESCRIPTION: CTA CHEST COMPLETED DATE/TIME: 09/09/2017 3:06 pm REASON FOR STUDY: 6, cp/sob/elevated d dimer COMPARISON: Radiograph 09/09/2017 TECHNIQUE: CT scan of the chest performed using helical scanning technique with dynamic intravenous contrast injection. Images reviewed with lung, soft tissue and bone windows. Reconstructed coronal and sagittal MPR images reviewed. Additional 3 dimensional post-processing performed to develop Maximal Intensity Projection images (SC P). All images stored on PACS. All CT scanners at this facility use dose modulation, iterative reconstruction, and/or weight based d osing when appropriate to reduce radiation dose to as low as reasonably achievable (ALARA). [facility]: Dose Right [facility]: CareDose [facility]: Dose Right [facility]: Teradose 4D [facility]: ConnectToHome CONTRAST TYPE AND DOSE: contrast/concentration: Isovue 370.00 mg/ml; Total Contrast Delivered: 75.0 ml; Total Saline Delivered: 62.0 ml BUN 11 creatinine 0.6 RENAL FUNCTION: B 11 creatinine 0.6 RADIATION DOSE: CT Rad equipment meets quality standard of care and radiation dose reduction techniq ues were employed. CTDIvol: 13.2 - 14.3 mGy. DLP: 501 mGy-cm. . LIMITATIONS: None. FINDINGS: LUNGS AND PLEURA: There is mild subsegmental atelectasis in the lung bases. Limited pneum onia cannot be excluded in the right lower lobe posteriorly. AORTA AND GREAT VESSELS: No aneurysm. Contrast bolus not optimized for the aorta. HEART: No pericardial effusion. No significant coronary artery calcifications. PULMONARY ARTERIES: No emboli visualized in the main pulmonary arteries or the segmental branches. HILAR AND MEDIASTINAL STRUCTURES: No identified masses or abnormal nodes. HARDWARE: None in the chest. UPPER ABDOMEN: No significant findings. Limited exam. THYROID AND OTHER SOFT TISSUES: No masses. No adenopathy. BONES: No acute or significant finding. 3D MIPS: Confirm above findings. OTHER: No other significant finding. IMPRESSION: 1. There is no evidence of pulmonary emboli. 2. Mild subsegmental atelectasis. Cannot exclude a limited right lower lobe pneumonia. COMMENT: Quality ID # 436: Final reports with documentation of one or more dose reduction techniques (e.g., Automated exposure control, adjustment of the mA and/or kV according to patient size, use of iterative reconstruction technique) TECHNICAL DOCUMENTATION: JOB ID: [id number] [employer]- All Rights Reserved Reading location - IP/workstation name: [email or web address]
--- NOTE | 2017-09-09 15:54 | EKG REPORT ---
SEVERITY:- NORMAL ECG - SINUS RHYTHM : Confirmed by: Gretel Major 09-Sep-2017 15:52:30
[2017-09-09 16:21] LABS: LIPASE 59.5 U/L (23-300)
--- NOTE | 2017-09-09 16:46 | RADIOLOGY REPORT (SQ) ---
EXAM DESCRIPTION: CT ABD/PELVIS NO ORAL OR IV COMPLETED DATE/TIME: 09/09/2017 4:32 pm REASON FOR STUDY: 6, pain COMPARISON: None. TECHNIQUE: CT scan of the abdomen and pelvis performed without intravenous or oral contrast. Images reviewed with lung, soft tissue, and bone windows. Reconstructed coronal and sagittal MPR images revi ewed. All images stored on PACS. All CT scanners at this facility use dose modulation, iterative reconstruction, and/or weight based d osing when appropriate to reduce radiation dose to as low as reasonably achievable (ALARA). [facility]: Dose Right [facility]: CareDose [facility]: Dose Right [facility]: Teradose 4D [facility]: Smart Gemmyo RADIATION DOSE: CT Rad equipment meets quality standard of care and radiation dose reduction techniq ues were employed. CTDIvol: 9.0 mGy. DLP: 521 mGy-cm.mGy. LIMITATIONS: Study is limited due to the relative paucity of mesenteric and retroperitoneal fat yanelis ng delineation of abdominal and pelvic structures somewhat difficult. Contrast is identified in the kidneys and bladder from the recent CTA of the chest. FINDINGS: LOWER CHEST: See results under CTA of the chest NON-CONTRASTED LIVER, SPLEEN, ADRENALS: Evaluation limited by lack of IV contrast. No identified sign ificant masses. Spleen appears enlarged. PANCREAS: No masses. No peripancreatic inflammatory changes. GALLBLADDER: Status post cholecystectomy RIGHT KIDNEY AND URETER: No suspicious masses. Assessment limited by lack of IV contrast. No signif icant calcifications. No hydronephrosis or hydroureter. LEFT KIDNEY AND URETER: No suspicious masses. Assessment limited by lack of IV contrast. No signifi cant calcifications. No hydronephrosis or hydroureter. AORTA AND RETROPERITONEUM: No aneurysm. No retroperitoneal masses or adenopathy. BOWEL AND PERITONEAL CAVITY: No obvious masses or inflammatory changes. No free fluid. APPENDIX: Not visualized. PELVIS, BLADDER, AND ABDOMINAL WALL:No abnormal masses. No free fluid. Bladder normal. BONES: No significant findings. OTHER: No other significant finding. IMPRESSION: Somewhat limited study as noted above. The spleen appears enlarged without focal spleni c abnormalities being identified. Other findings as noted above COMMENT: Quality ID # 436: Final reports with documentation of one or more dose reduction techniques (e.g., Automated exposure control, adjustment of the mA and/or kV according to patient size, use of iterative reconstruction technique) TECHNICAL DOCUMENTATION: JOB ID: [id number] [employer]- All Rights Reserved Reading location - IP/workstation name: [email or web address]
[2017-09-09] MEDS ORDERED: DIAZEPAM 2 MG TABLET PO ONE (16:51)
[2017-09-09] MEDS ORDERED: ACETAMINOPHEN 325 MG TABLET PO ONE (18:28)
[2017-09-09 20:42] LABS: APPEARANCE,URINE CLEAR; BILIRUBIN,URINE NEGATIVE (NEGATIVE); COLOR,URINE YELLOW; GLUCOSE, URINE NEGATIVE (NEGATIVE); KETONES,URINE NEGATIVE (NEGATIVE); LEUKOCYTE ESTERASE,URINE NEGATIVE (NEGATIVE); NITRITE,URINE NEGATIVE (NEGATIVE); PROTEIN,URINE NEGATIVE (NEGATIVE); URINE SPECIFIC GRAVITY 1.035; UROBILINOGEN,URINE NEGATIVE mg/dL (<2.0)
[2017-09-09] MEDS ORDERED: METHOCARBAMOL 750 MG TABLET PO ONE (21:23)
[2017-09-09 21:43] VITALS: BP 103/78
== END 2017-09-09 21:39 | disposition home or self-care (01) ==
LOC: ER 09:54
DX: J15.9 Unspecified bacterial pneumonia (principal); M62.830 Muscle spasm of back; M54.5 Low back pain; R06.02 Shortness of breath; R09.81 Nasal congestion; R07.89 Other chest pain; R16.1 Splenomegaly, not elsewhere classified; Z88.0 Allergy status to penicillin; Z87.19 Personal history of other diseases of the digestive system; Z98.84 Bariatric surgery status; Z82.49 Family history of ischemic heart disease and other diseases of the circulatory system; Z90.49 Acquired absence of other specified parts of digestive tract
CPT/HCPCS: 93005; 96376; 94640; 99285; 96361; 96374; 96375; 36415; 83690; 85025; 81025; 80053; 81001; 84484; 85379; 83880; 71046; 71275; 74176; 93010; J3490 ×2; J1885; J2270; J7030; J7620

== ENCOUNTER 2017-09-12 22:36 | Emergency (ER) | payer BC ==
[2017-09-12] MEDS ORDERED: NORMAL SALINE 1000 ML 1,000 ML IV ONE (23:19)
--- NOTE | 2017-09-13 00:02 | RADIOLOGY REPORT (SQ) ---
EXAM DESCRIPTION: CHEST SINGLE VIEW COMPLETED DATE/TIME: 09/12/2017 11:48 pm REASON FOR STUDY: sob COMPARISON: 09/09/2017 EXAM PARAMETERS: NUMBER OF VIEWS: One view. TECHNIQUE: Single frontal radiographic view of the chest acquired. RADIATION DOSE: NA LIMITATIONS: None. FINDINGS: LUNGS AND PLEURA: Underlying emphysema. Mild interstitial edema with bibasilar airspace d isease. Possible small bilateral pleural effusions. MEDIASTINUM AND HILAR STRUCTURES: No masses. Contour normal. HEART AND VASCULAR STRUCTURES: Heart stable in size. Mild vascular congestion. BONES: No acute findings. HARDWARE: None in the chest. OTHER: No other significant finding. IMPRESSION: MILD INTERSTITIAL EDEMA WITH SMALL BILATERAL PLEURAL EFFUSIONS AND BIBASILAR AIRSPACE DI SEASE WHICH MAY REPRESENT SUBSEGMENTAL ATELECTASIS OR SUPERIMPOSED PNEUMONIA. TECHNICAL DOCUMENTATION: JOB ID: [id number] [employer]- All Rights Reserved Reading location - IP/workstation name: [email or web address]
[2017-09-13 00:11] LABS: ABSOLUTE EOSINOPHILS # (AUTO) 0.2 10^3/uL (0.0-0.6); ABSOLUTE LYMPHOCYTES (AUTO) 0.7 10^3/uL (0.5-4.7); ABSOLUTE MONOCYTES (AUTO) 0.3 10^3/uL (0.1-1.4); ABSOLUTE NEUT (AUTO) 5.7 10^3/uL (1.7-8.2); BASOPHILS % (AUTO) 0.2 % (0-2); EOSINOPHILS % (AUTO) 2.4 % (0-6); HEMATOCRIT 33.5 % (36.0-47.0); HEMOGLOBIN 11.4 g/dL (12.0-15.5); LYMPHOCYTES % (AUTO) 10.1 % (13-45); MEAN CORPUSCULAR HEMOGLOBIN 29.6 pg (27.0-33.4); MEAN CORPUSCULAR HGB CONC 34.1 g/dL (32.0-36.0); MEAN CORPUSCULAR VOLUME 87 fl (80-97); MONOCYTES % (AUTO) 4.6 % (3-13); PLATELET COUNT 337 10^3/uL (150-450); RED BLOOD COUNT 3.86 10^6/uL (3.72-5.28); RED CELL DISTRIBUTION WIDTH 12.6 % (11.5-14.0); SEGMENTED NEUTROPHILS % (AUTO) 82.7 % (42-78); TOTAL CELLS COUNTED % (AUTO) 100 %; WHITE BLOOD COUNT 6.9 10^3/uL (4.0-10.5)
[2017-09-13 00:40] LABS: ALANINE AMINOTRANSFERASE 68 U/L (9-52); ALBUMIN 3.4 g/dL (3.5-5.0); ALKALINE PHOSPHATASE 108 U/L (38-126); ANION GAP 8 (5-19); ASPARTATE AMINO TRANSFERASE 64 U/L (14-36); BILIRUBIN,DIRECT 0.3 mg/dL (0.0-0.4); BILIRUBIN,TOTAL 0.3 mg/dL (0.2-1.3); BLOOD UREA NITROGEN 16 mg/dL (7-20); CARBON DIOXIDE 28 mmol/L (22-30); CHLORIDE 107 mmol/L (98-107); CREATINE KINASE 386 U/L (30-135); GLUCOSE 84 mg/dL (75-110); SODIUM 142.5 mmol/L (137-145); TOTAL PROTEIN 6.2 g/dL (6.3-8.2)
--- NOTE | 2017-09-13 01:04 | ER Document Report ---
ED General - General Chief Complaint: Pain All Over Stated Complaint: SHORTNESS OF BREATH Time Seen by Provider: 09/12/17 23:17 Notes: Patient is a 36 year old female with a past medical history of bipolar disorder , anxiety, depression, who presents with 2-3 weeks of intermittent generalized body aches and intermittent muscle spasms. She states that she had a similar spasm just prior to arrival which prompted her visit to the emergency department this evening. She states this involves spasming of the muscles of her abdominal and chest wall that she felt like prevented her from breathing. She states that this started abruptly, lasted for approximately 1 minute and then spontaneously resolved. She is notes that she has had repeated intermittent similar episodes over the last 2-3 weeks. Nothing seems to trigger these episodes and they do resolve spontaneously. She states that she has been taking all medications as directed. No recent changes in medications. She saw her primary care doctor but was told that her symptoms did not appear life-threatening and that she could not make a complete assessment as she was unaware of what workup we had already done here in the emergency department. She denies any weight loss, vomiting, fever, syncope, chest pain or shortness of breath. She is currently taking doxycycline for a possible pneumonia seen on x-ray but notes that her symptoms did start prior to taking this medication. TRAVEL OUTSIDE OF THE [place] IN LAST 30 DAYS: No - Related Data Allergies/Adverse Reactions: Penicillins Allergy (Verified 09/09/17 09:57) Past Medical History - General Information source: Patient - Social History Smoking Status: Never Smoker Chew tobacco use (# tins/day): No Frequency of alcohol use: None Drug Abuse: None Lives with: Spouse/Significant other Family History: CVA, Hypertension Patient has suicidal ideation: No Patient has homicidal ideation: No - Past Medical History Cardiac Medical History: Denies: Hx Congestive Heart Failure, Hx DVT, Hx Heart Attack, Hx Hypercholesterolemia, Hx Hypertension, Hx Pulmonary Embolism Pulmonary Medical History: Denies: Hx Asthma, Hx COPD, Hx Sleep Apnea Neurological Medical History: Denies: Hx Seizures Endocrine Medical History: Denies: Hx Diabetes Mellitus Type 1, Hx Diabetes Mellitus Type 2, Hx Hyperthyroidism, Hx Hypothyroidism Renal/ Medical History: Denies: Hx Peritoneal Dialysis GI Medical History: Reports: Hx Gastroesophageal Reflux Disease - Questionable mild reflux.. Denies: Hx Cirrhosis, Hx Hepatitis Musculoskeltal Medical History: Denies Hx Arthritis Psychiatric Medical History: Reports: Hx Anxiety, Hx Bipolar Disorder, Hx Depression Infectious Medical History: Denies: Hx C-Diff, Hx Hepatitis, Hx MRSA Past Surgical History: Reports: Hx Abdominal Surgery - Gastric bypass, Hx Bowel Surgery - Gastric bypass, Hx Cholecystectomy, Hx Gastric Bypass Surgery, Hx Tonsillectomy, Hx Tubal Ligation - Immunizations Immunizations up to date: Yes Hx Diphtheria, Pertussis, Tetanus Vaccination: Yes Review of Systems - Review of Systems Notes: Constitutional: Negative for fever. HENT: Negative for sore throat. Eyes: Negative for visual changes. Cardiovascular: Negative for chest pain. Respiratory: Negative for shortness of breath. Gastrointestinal: Negative for abdominal pain, vomiting or diarrhea. Genitourinary: Negative for dysuria. Musculoskeletal: Positive for diffuse body pain Skin: Negative for rash. Neurological: Negative for headaches, weakness or numbness. 10 point ROS negative except as marked above and in HPI. Physical Exam - Vital signs Vitals: Temp Pulse Resp BP Pulse Ox 98.8 F 91 18 118/78 96 09/12/17 22:49 09/12/17 22:49 09/12/17 22:49 09/12/17 22:49 09/12/17 22:49 Interpretation: Normal Notes: PHYSICAL EXAMINATION: GENERAL: Well-appearing, well-nourished and in no acute distress. HEAD: Atraumatic, normocephalic. EYES: Pupils equal round and reactive to light, extraocular movements intact, sclera anicteric, conjunctiva are normal. ENT: nares patent, oropharynx clear without exudates. Moist mucous membranes. NECK: Normal range of motion, supple without lymphadenopathy LUNGS: Breath sounds clear to auscultation bilaterally and equal. No wheezes rales or rhonchi. HEART: Regular rate and rhythm without murmurs ABDOMEN: Soft, nontender, normoactive bowel sounds. No guarding, no rebound. No masses appreciated. EXTREMITIES: Normal range of motion, no pitting or edema. No cyanosis. NEUROLOGICAL: No focal neurological deficits. Moves all extremities spontaneously and on command. PSYCH: Normal mood, normal affect. SKIN: Warm, Dry, normal turgor, no rashes or lesions noted. Course - Re-evaluation Re-evalutation: 09/13/17 02:41 Patient presents with multiple vague complaints that did not appear to be concerning for any acute life-threatening pathology. Vitals are within normal limits at triage and at time of discharge. Physical examination is unremarkable. Patient has tolerated oral intake without difficulty. Patient was not noted to be in distress at any point during their ER visit. At this time, based on the reassuring evaluation, I do not suspect an acute SD, pulmonary embolus, aortic dissection, acute intra-abdominal pathology, stroke, or sepsis. Labs do not show any evidence of acute rhabdomyolysis. Lamictal level is pending and is a send out lab. Chest x-ray shows likely bibasilar atelectasis patient's clinical history is not consistent with a pneumonia. Will discharge with return precautions and follow-up recommendations. Verbal discharge instructions given a the bedside and opportunity for questions given. Medication warnings reviewed. Patient is in agreement with this plan and has verbalized understanding of return precautions and the need for primary care follow-up in the next 24-72 hours. - Vital Signs Vital signs: Temp Pulse Resp BP Pulse Ox 98.3 F 86 16 116/78 96 09/13/17 01:22 09/13/17 01:22 09/13/17 01:22 09/13/17 01:22 09/13/17 01:22 - Laboratory Result Diagrams: 09/12/17 23:56 09/12/17 23:56 Laboratory results interpreted by me: 09/12/17 09/12/17 23:56 23:56 Hgb 11.4 L Hct 33.5 L Seg Neutrophils % 82.7 H Lymphocytes % 10.1 L AST 64 H ALT 68 H Creatine Kinase 386 H Total Protein 6.2 L Albumin 3.4 L - Diagnostic Test Radiology reviewed: Image reviewed, Reports reviewed Radiology results interpreted by me: 09/13/17 01:01 Chest x-ray: Bibasilar atelectasis is - EKG Interpretation by Me Additional EKG results interpreted by me: 09/13/17 01:02 . Normal sinus rhythm. Rate 77. No ST elevations or depressions. QTC is 444 Discharge - Discharge Clinical Impression: Complaints of total body pain, Muscle spasm Condition: Good Disposition: HOME, SELF-CARE Additional Instructions: Your labs are reassuring today. Your Lamictal level is pending as it is a send out lab. The exact cause of your symptoms is uncertain at this time but does not appear to be from an immediately life threatening cause at this time. Please return to the emergency room immediately if you experience any concerning symptoms including high fevers, severe headache, chest pain, difficulty breathing, abdominal pain, slurred speech, numbness or weakness in your arms or legs, or any other symptom that concerns you. Referrals: ERIN CUELLAR DO [Primary Care Provider] - 09/15/17
[2017-09-13 01:23] VITALS: BP 116/78
--- NOTE | 2017-09-13 09:12 | EKG REPORT ---
SEVERITY:- NORMAL ECG - SINUS RHYTHM : Confirmed by: Gretel Major 13-Sep-2017 09:11:56
== END 2017-09-13 01:23 | disposition home or self-care (01) ==
LOC: ER 22:36
DX: R52 Pain, unspecified (principal); M62.838 Other muscle spasm; Z98.84 Bariatric surgery status; Z88.0 Allergy status to penicillin
CPT/HCPCS: 93005; 99284; 96360; 36415; 82550; 85025; 80053; 80175; 84484; 71045; 93010; J7030

== ENCOUNTER → 2018-04-21 | Outpatient (CLI) | payer BC ==
--- NOTE | 2018-04-21 09:26 | WOMENS IMAGING REPORT ---
EXAM DESCRIPTION: BILAT SCREENING MAMMO W/CAD COMPLETED DATE/TIME: 04/21/2018 9:03 am REASON FOR STUDY: BILATERAL SCREENING [id number] ENCNTR SCREEN MAMMOGRAM FOR MALIGNANT NEOPLAS M OF ADRIAN COMPARISON: None. TECHNIQUE: Standard craniocaudal and mediolateral oblique views of each breast recorded using digita l acquisition. LIMITATIONS: None. FINDINGS: RIGHT BREAST MASSES: Nodular areas in the lateral breast, located 7 to 8.5 cm from the nipple. CALCIFICATIONS: No new or suspicious calcifications. ARCHITECTURAL DISTORTION: None. DEVELOPING DENSITY: None. ASYMMETRY: None noted. OTHER: No other significant findings. LEFT BREAST MASSES: No suspicious masses. CALCIFICATIONS: No new or suspicious calcifications. ARCHITECTURAL DISTORTION: None. DEVELOPING DENSITY: None. ASYMMETRY: None noted. OTHER: No other significant findings. Read with the assistance of CAD. .[facility] - R2 Cenova Version 1.3 .[facility] - R2 Cenova Version 1.3 .[facility] - R2 Cenova Version 2.4 .[facility] [place] R2 Cenova Version 2.4 .[facility] - R2 [employer] Version 9.2 IMPRESSION: Nodular areas in the lateral right breast. No worrisome mammographic findings in the le ft breast. BREAST DENSITY: b. There are scattered areas of fibroglandular density. BIRAD: 0 Incomplete: Needs Additional Imaging Evaluation and/or prior Mammograms for Comparison. RECOMMENDATION: RECOMMENDED FOLLOW-UP: Recommend additional evaluation with breast tomosynthesis (pr eferred) or compression views of the right breast and ultrasound of the right breast. Recommend rout ine screening mammography of the left breast. The patient will be contacted for additional imaging. COMMENT: The patient has been notified of the results by letter per [place] requirements. Additional no tification policies are in place for contacting patient with suspicious or incomplete findings. Quality ID #225: The [employer] recommends an annual screening mammogram for women aged 40 years or over. This facility utilizes a reminder system to ensure that all patients receive reminder letters, and/or direct phone calls for appointments. This includes reminders for routine scr eening mammograms, diagnostic mammograms, or other Breast Imaging Interventions when appropriate. Th is patient will be placed in the appropriate reminder system. The [employer] (ACR) has developed recommendations for screening MRI of the breast s in certain patient populations, to be used in conjunction with mammography. Breast MRI surveillanc e may be appropriate for women with more than 20% lifetime risk of developing breast cancer as deter mined by genetic testing, significant family history of the disease, or history of mantle radiation f or Hodgkins Disease. ACR Practice Guidelines 2008. TECHNICAL DOCUMENTATION: FINDING NUMBER: (1) ASSESSMENT: (1) JOB ID: [id number] [employer]- All Rights Reserved Reading location - IP/workstation name: [email or web address]
== END ==
LOC: WI 08:10
PROVIDERS: ATTEND Student in an Organized Health Care Education/Training Program
DX: Z12.31 Encounter for screening mammogram for malignant neoplasm of breast (principal); N63.10 Unspecified lump in the right breast, unspecified quadrant
CPT/HCPCS: 77067

== ENCOUNTER → 2018-04-27 | Outpatient (CLI) | payer BC ==
--- NOTE | 2018-04-27 11:19 | WOMENS IMAGING REPORT ---
EXAM DESCRIPTION: RIGHT DIAGNOSTIC MAMMO W/CAD; U/S BREAST UNILAT LIMITED COMPLETED DATE/TIME: 04/27/2018 8:54 am; 04/27/2018 9:21 am REASON FOR STUDY: RIGHT DIAGNOSTIC MAMMO/R92.2 NODULAR AREAS IN THE LATERAL BREAST.; RT BREAST NODUL ES R92.2 R92.2 INCONCLUSIVE MAMMOGRAM COMPARISON: 04/21/2018. TECHNIQUE: True lateral and spot compression MLO and CC images acquired. LIMITATIONS: None. FINDINGS: BREAST: right MASSES: The nodular areas in the lateral breast are less conspicuous on additional imaging with compr ession. CALCIFICATIONS: No new or suspicious calcifications. ARCHITECTURAL DISTORTION: None. DEVELOPING DENSITY: None. ASYMMETRY: None noted. OTHER: No other significant findings. BREAST ULTRASOUND: TECHNIQUE: Static and dynamic grayscale images acquired of the right breast in the specific areas of clinical/mammographic concern. Selected color Doppler images recorded. ELASTOGRAPHY PERFORMED: No. LIMITATIONS: None. FINDINGS: MASS: In the 10-11 o'clock location there is a 3 mm cyst. No solid mass identified. Normal glandula r tissue. ELASTOGRAPHY CHARACTERISTICS: Not applicable. OTHER: No other significant finding. IMPRESSION: Nodular areas in the lateral breast are less conspicuous on additional imaging with comp ression. Small 3 mm cyst on ultrasound. No solid masses No worrisome mammographic or sonographic fi ndings. BREAST DENSITY: b. There are scattered areas of fibroglandular density. BIRAD: 2 Benign findings. RECOMMENDATION: RECOMMENDED FOLLOW UP: Birads 1 or 2: The patient should resume routine screening . SPECIFIC INTERVENTION/IMAGING/CONSULTATION RECOMMENDED:No additional intervention/ imaging/consultati on needed at this time. COMMUNICATION:The imaging findings were not discussed with the patient. Her referring provider has be en notified of the findings. COMMENT: The patient has been notified of the results by letter per MQSA requirements. Additional no tification policies are in place for contacting patient with suspicious or incomplete findings. Quality ID #225: The [employer] recommends an annual screening mammogram for women aged 40 years or over. This facility utilizes a reminder system to ensure that all patients receive reminder letters, and/or direct phone calls for appointments. This includes reminders for routine scr eening mammograms, diagnostic mammograms, or other Breast Imaging Interventions when appropriate. Th is patient will be placed in the appropriate reminder system. The [employer] (ACR) has developed recommendations for screening MRI of the breast s in certain patient populations, to be used in conjunction with mammography. Breast MRI surveillanc e may be appropriate for women with more than 20% lifetime risk of developing breast cancer as deter mined by genetic testing, significant family history of the disease, or history of mantle radiation f or Hodgkins Disease. ACR Practice Guidelines 2008. TECHNICAL DOCUMENTATION: FINDING NUMBER: (1) ASSESSMENT: (1) JOB ID: [id number] [employer]- All Rights Reserved Reading location - IP/workstation name: [email or web address] BY [facility]
--- NOTE | 2018-04-27 11:19 | WOMENS IMAGING REPORT ---
EXAM DESCRIPTION: RIGHT DIAGNOSTIC MAMMO W/CAD; U/S BREAST UNILAT LIMITED COMPLETED DATE/TIME: 04/27/2018 8:54 am; 04/27/2018 9:21 am REASON FOR STUDY: RIGHT DIAGNOSTIC MAMMO/R92.2 NODULAR AREAS IN THE LATERAL BREAST.; RT BREAST NODUL ES R92.2 R92.2 INCONCLUSIVE MAMMOGRAM COMPARISON: 04/21/2018. TECHNIQUE: True lateral and spot compression MLO and CC images acquired. LIMITATIONS: None. FINDINGS: BREAST: right MASSES: The nodular areas in the lateral breast are less conspicuous on additional imaging with compr ession. CALCIFICATIONS: No new or suspicious calcifications. ARCHITECTURAL DISTORTION: None. DEVELOPING DENSITY: None. ASYMMETRY: None noted. OTHER: No other significant findings. BREAST ULTRASOUND: TECHNIQUE: Static and dynamic grayscale images acquired of the right breast in the specific areas of clinical/mammographic concern. Selected color Doppler images recorded. ELASTOGRAPHY PERFORMED: No. LIMITATIONS: None. FINDINGS: MASS: In the 10-11 o'clock location there is a 3 mm cyst. No solid mass identified. Normal glandula r tissue. ELASTOGRAPHY CHARACTERISTICS: Not applicable. OTHER: No other significant finding. IMPRESSION: Nodular areas in the lateral breast are less conspicuous on additional imaging with comp ression. Small 3 mm cyst on ultrasound. No solid masses No worrisome mammographic or sonographic fi ndings. BREAST DENSITY: b. There are scattered areas of fibroglandular density. BIRAD: 2 Benign findings. RECOMMENDATION: RECOMMENDED FOLLOW UP: Birads 1 or 2: The patient should resume routine screening . SPECIFIC INTERVENTION/IMAGING/CONSULTATION RECOMMENDED:No additional intervention/ imaging/consultati on needed at this time. COMMUNICATION:The imaging findings were not discussed with the patient. Her referring provider has be en notified of the findings. COMMENT: The patient has been notified of the results by letter per MQSA requirements. Additional no tification policies are in place for contacting patient with suspicious or incomplete findings. Quality ID #225: The [employer] recommends an annual screening mammogram for women aged 40 years or over. This facility utilizes a reminder system to ensure that all patients receive reminder letters, and/or direct phone calls for appointments. This includes reminders for routine scr eening mammograms, diagnostic mammograms, or other Breast Imaging Interventions when appropriate. Th is patient will be placed in the appropriate reminder system. The [employer] (ACR) has developed recommendations for screening MRI of the breast s in certain patient populations, to be used in conjunction with mammography. Breast MRI surveillanc e may be appropriate for women with more than 20% lifetime risk of developing breast cancer as deter mined by genetic testing, significant family history of the disease, or history of mantle radiation f or Hodgkins Disease. ACR Practice Guidelines 2008. TECHNICAL DOCUMENTATION: FINDING NUMBER: (1) ASSESSMENT: (1) JOB ID: [id number] [employer]- All Rights Reserved Reading location - IP/workstation name: [email or web address]
== END ==
LOC: WI 08:30
PROVIDERS: ATTEND Student in an Organized Health Care Education/Training Program
DX: N60.01 Solitary cyst of right breast (principal)
CPT/HCPCS: 76642

== ENCOUNTER 2018-10-23 10:47 | Emergency (ER) | payer BC, MEDICAID ==
[2018-10-23 10:54] VITALS: BP 123/73
[2018-10-23] MEDS ORDERED: HYDROCODONE/ACETAMINOPHEN 5-325 MG TABLET PO ONE (11:55)
--- NOTE | 2018-10-23 11:58 | ER Document Report ---
ED Extremity Problem, Lower - General Chief Complaint: Leg Swelling Stated Complaint: LEG SWELLING Time Seen by Provider: 10/23/18 11:49 Primary Care Provider: ERIN CUELLAR DO [Primary Care Provider] - Follow up as needed Mode of Arrival: Ambulatory Information source: Patient TRAVEL OUTSIDE OF THE [place] IN LAST 30 DAYS: No - HPI Patient complains to provider of: Pain, Swelling Notes: Patient here with complaints of left calf pain. The patient has a history of lupus. She been having some left leg swelling and pain for the last few days seems to be getting somewhat worse. She is now having some tenderness to the left posterior calf. She denies any new chest pain or shortness of breath. No fever. She denies any injury. She denies any recent long trips or surgeries, she is not on hormones, she denies any history of DVT or PE. No nausea, vomiting, diarrhea. No abdominal pain. No rash. No fevers. Pain is constant, nothing seems to make it better, is worse with touch. Pain is moderate. No other complaints at this time. - Related Data Allergies/Adverse Reactions: Penicillins Allergy (Verified 10/23/18 10:50) Past Medical History - Social History Smoking Status: Never Smoker Frequency of alcohol use: None Drug Abuse: None Family History: CVA, Hypertension Patient has suicidal ideation: No Patient has homicidal ideation: No - Past Medical History Cardiac Medical History: Denies: Hx Congestive Heart Failure, Hx DVT, Hx Heart Attack, Hx Hypercholesterolemia, Hx Hypertension, Hx Pulmonary Embolism Pulmonary Medical History: Denies: Hx Asthma, Hx COPD, Hx Sleep Apnea Neurological Medical History: Denies: Hx Seizures Endocrine Medical History: Denies: Hx Diabetes Mellitus Type 1, Hx Diabetes Mellitus Type 2, Hx Hyperthyroidism, Hx Hypothyroidism Renal/ Medical History: Denies: Hx Peritoneal Dialysis GI Medical History: Reports: Hx Gastroesophageal Reflux Disease - Questionable mild reflux.. Denies: Hx Cirrhosis, Hx Hepatitis Musculoskeletal Medical History: Denies Hx Arthritis Psychiatric Medical History: Reports: Hx Anxiety, Hx Bipolar Disorder, Hx Depression Infectious Medical History: Denies: Hx C-Diff, Hx Hepatitis, Hx MRSA Past Surgical History: Reports: Hx Abdominal Surgery - Gastric bypass, Hx Bowel Surgery - Gastric bypass, Hx Cholecystectomy, Hx Gastric Bypass Surgery, Hx Tonsillectomy, Hx Tubal Ligation - Immunizations Immunizations up to date: Yes Hx Diphtheria, Pertussis, Tetanus Vaccination: Yes Review of Systems - Review of Systems -: Yes All other systems reviewed and negative Physical Exam - Vital signs Vitals: Temp Pulse Resp BP Pulse Ox 98 F 91 18 123/73 97 10/23/18 10:52 10/23/18 10:52 10/23/18 10:52 10/23/18 10:52 10/23/18 10:52 - Notes Notes: GENERAL: alert, cooperative, nontoxic, no distress. HEAD: normocephalic, atraumatic EYES: conjunctiva pink without discharge, no external redness or swelling. EARS: no external swelling, no external redness NOSE: atraumatic, no external swelling MOUTH/THROAT: mucous membranes moist and pink, posterior pharynx without erythema, swelling, exudate. No trismus or drooling. NECK: soft, supple, full range of motion, no meningismus. CHEST: no distress, lungs clear and equal throughout. No wheezing, rales, rhonc hi. CARDIAC: regular rate and rhythm, no murmur, normal capillary refill, normal pulses. No peripheral edema noted. BACK: full range of motion, no CVA tenderness. EXTREMITIES: full range of motion of all extremities. Swelling noted to the left lower extremity. Tenderness to the posterior calf and popliteal area. Normal pulse and sensation distally. Compartments are soft. NEURO: alert and oriented x 3, no focal deficits, full range of motion of all extremities. PYSCH: appropriate mood, affect. Patient is cooperative. SKIN: pink, warm, dry, no rash. Course - Re-evaluation Re-evalutation: 10/23/18 14:27 Patient nontoxic-appearing with stable vitals. Patient here with complaints of left leg pain and swelling. She has a history of lupus. She is never had a blood clot in the past. No recent travel or control. Started having some pain in the left calf with some swelling. No chest pain or shortness of breath. No fever. Exam shows a mildly swollen left leg with some tenderness to the left calf and posterior knee area. No cellulitis identified, no abscess. Lab work is unremarkable for any significant abnormalities. Venous Doppler of the left lower extremity is negative. This point believe the patient can be discharged home with a prescription for Naprosyn and Ultram. Instructions to keep elevating the leg. To follow-up with her primary care doctor if symptoms do not improve. To follow-up sooner or return for any worsening pain, high fever, persistent vomiting, redness, numbness, tingling, weakness, any further concerns. The patient's emergency department workup and current diagnosis were explained to the patient and or family. Follow-up instructions were provided. Medications if prescribed were discussed. Instructions for when to return to the emergency department including specific worrisome symptoms were discussed with the patient and/or family. - Vital Signs Vital signs: Temp Pulse Resp BP Pulse Ox 98 F 91 18 123/73 97 10/23/18 10:52 10/23/18 10:52 10/23/18 10:52 10/23/18 10:52 10/23/18 10:52 - Laboratory Result Diagrams: 10/23/18 12:05 10/23/18 12:05 Laboratory results interpreted by me: 10/23/18 10/23/18 12:05 12:05 Hgb 11.8 L RDW 23.1 H Seg Neutrophils % 82.3 H Lymphocytes % 9.6 L Glucose 127 H Total Protein 6.2 L - Diagnostic Test Radiology reviewed: Image reviewed, Reports reviewed - Negative venous Doppler Discharge - Discharge Clinical Impression: Left leg pain Condition: Stable Disposition: HOME, SELF-CARE Instructions: Leg Pain Nonspecific ([facility]), Possible Evolving Leg DVT ([facility]) Additional Instructions: Take medication as prescribed. Continue to elevate your leg. Follow-up with your doctor if not better in the next few days, follow-up sooner for worsening pain, fever, redness, chest pain, shortness of breath, persistent vomiting, numbness, tingling, weakness, any further concerns. Prescriptions: Tramadol HCl [Ultram 50 mg Tablet] 50 mg PO Q6HP PRN #12 tablet PRN Reason: Naproxen [Naprosyn] 500 mg PO BID #20 tablet Referrals: ERIN CUELLAR DO [Primary Care Provider] - Follow up as needed
[2018-10-23 12:16] LABS: ABSOLUTE EOSINOPHILS # (AUTO) 0.1 10^3/uL (0.0-0.6); ABSOLUTE LYMPHOCYTES (AUTO) 0.5 10^3/uL (0.5-4.7); ABSOLUTE MONOCYTES (AUTO) 0.3 10^3/uL (0.1-1.4); ABSOLUTE NEUT (AUTO) 4.6 10^3/uL (1.7-8.2); BASOPHILS % (AUTO) 0.3 % (0-2); EOSINOPHILS % (AUTO) 1.7 % (0-6); HEMATOCRIT 36.1 % (36.0-47.0); HEMOGLOBIN 11.8 g/dL (12.0-15.5); LYMPHOCYTES % (AUTO) 9.6 % (13-45); MEAN CORPUSCULAR HEMOGLOBIN 27.3 pg (27.0-33.4); MEAN CORPUSCULAR HGB CONC 32.7 g/dL (32.0-36.0); MEAN CORPUSCULAR VOLUME 84 fl (80-97); MONOCYTES % (AUTO) 6.1 % (3-13); PLATELET COUNT 210 10^3/uL (150-450); RED BLOOD COUNT 4.32 10^6/uL (3.72-5.28); RED CELL DISTRIBUTION WIDTH 23.1 % (11.5-14.0); SEGMENTED NEUTROPHILS % (AUTO) 82.3 % (42-78); TOTAL CELLS COUNTED % (AUTO) 100 %; WHITE BLOOD COUNT 5.6 10^3/uL (4.0-10.5)
[2018-10-23 12:22] LABS: INTERNATIONAL RATION (INR) 0.91; PROTHROMBIN TIME 12.8 SEC (11.4-15.4)
[2018-10-23 12:23] LABS: PARTIAL THROMBOPLASTIN TIME 28.4 SEC (23.5-35.8)
[2018-10-23 12:36] LABS: ALANINE AMINOTRANSFERASE 23 U/L (9-52); ALBUMIN 3.7 g/dL (3.5-5.0); ALKALINE PHOSPHATASE 67 U/L (38-126); ANION GAP 7 (5-19); ASPARTATE AMINO TRANSFERASE 29 U/L (14-36); BILIRUBIN,DIRECT 0.2 mg/dL (0.0-0.4); BILIRUBIN,TOTAL 0.3 mg/dL (0.2-1.3); BLOOD UREA NITROGEN 8 mg/dL (7-20); CALCIUM 8.6 mg/dL (8.4-10.2); CARBON DIOXIDE 29 mmol/L (22-30); CHLORIDE 107 mmol/L (98-107); GLUCOSE 127 mg/dL (75-110); POTASSIUM 4.1 mmol/L (3.6-5.0); SODIUM 142.5 mmol/L (137-145); TOTAL PROTEIN 6.2 g/dL (6.3-8.2)
--- NOTE | 2018-10-23 13:56 | RADIOLOGY REPORT (SQ) ---
EXAM DESCRIPTION: VENOUS UNILATERAL LOWER COMPLETED DATE/TIME: 10/23/2018 1:45 pm REASON FOR STUDY: LEFT LEG PAIN AND SWELLING COMPARISON: None. TECHNIQUE: Dynamic and static sparks scale and color images acquired of the left leg venous system. Se lected spectral images acquired with additional compression and augmentation maneuvers. The contralat eral common femoral vein and saphenofemoral junction were also imaged. Images stored on PACS. LIMITATIONS: None. FINDINGS: COMMON FEMORAL: Normal phasicity, compression and augmentation. No visualized echogenic ma terial on sparks scale. No defects on color images. FEMORAL: Normal compression and augmentation. No visualized echogenic material on sparks scale. No defe cts on color images. POPLITEAL: Normal compression, augmentation. No visualized echogenic material on sparks scale. No defec ts on color images. CALF VESSELS: Normal compression, augmentation. No visualized echogenic material on sparks scale. No de fects on color images. GSV and SSV: Normal compression, augmentation. No visualized echogenic material on sparks scale. No def ects on color images. ANY DEEP VENOUS INSUFFICIENCY: Not evaluated. ANY EVIDENCE OF POPLITEAL CYST: No. OTHER: No other significant finding. CONTRALATERAL COMMON FEMORAL VEIN AND SAPHENOFEMORAL JUNCTION: Normal phasicity, compression and augmentation. No visualized echogenic material on sparks scale. No de fects on color images. IMPRESSION: 1. NO EVIDENCE OF DVT OR SVT IN THE LEFT LEG. COMMENT: 1. The results of this examination were given to the nurse practitioner on 10/23/2018 at 13: 20 hours. TECHNICAL DOCUMENTATION: JOB ID: [id number] [employer]- All Rights Reserved Reading location - IP/workstation name: [email or web address]
== END 2018-10-23 14:39 | disposition home or self-care (01) ==
LOC: ER 10:47
DX: M79.605 Pain in left leg (principal); M79.89 Other specified soft tissue disorders; Z88.0 Allergy status to penicillin; Z98.84 Bariatric surgery status
CPT/HCPCS: 36415; 80053; 85025; 85610; 85730; 93971; 99284

== ENCOUNTER 2018-11-02 11:37 | Emergency (ER) | payer MEDICAID ==
--- NOTE | 2018-11-02 12:28 | ER Document Report ---
ED Medical Screen (RME) - General Chief Complaint: Leg Swelling Stated Complaint: LEG PAIN/SWELLING Time Seen by Provider: 11/02/18 12:21 Primary Care Provider: ERIN CUELLAR DO [Primary Care Provider] - Follow up as needed Notes: 38-year-old female presented to ED for complaint of pain with deep breaths abrasions. She also has painful swallowing bilateral legs she states that she thinks the left one is larger than the right. This is all been going on for about a week and a half she was seen last week with negative Doppler at that time. She states she is also had excessive salivation for the last week. She states her legs have been achy for a long time but the swelling just started a week and half ago. She does have a history of tonsillectomy gastric bypass gallbladder surgery and bilateral tubal ligation. 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 She denies any smoking drinking or doing any drugs. Patient is alert oriented respirations regular and unlabored speaking full sentences. I have greeted and performed a rapid initial assessment of this patient. A comprehensive ED assessment and evaluation of the patient, analysis of test results and completion of medical decision making process will be conducted by an additional ED providers. Dictation of this chart was performed using voice recognition software; therefore, there may be some unintended grammatical errors. TRAVEL OUTSIDE OF THE [place] IN LAST 30 DAYS: No - Related Data Allergies/Adverse Reactions: Penicillins Allergy (Verified 11/02/18 11:44) Past Medical History - Past Medical History Cardiac Medical History: Denies: Hx Congestive Heart Failure, Hx DVT, Hx Heart Attack, Hx Hypercholesterolemia, Hx Hypertension, Hx Pulmonary Embolism Pulmonary Medical History: Denies: Hx Asthma, Hx COPD, Hx Sleep Apnea Neurological Medical History: Denies: Hx Seizures Endocrine Medical History: Denies: Hx Diabetes Mellitus Type 1, Hx Diabetes Mellitus Type 2, Hx Hyperthyroidism, Hx Hypothyroidism Renal/ Medical History: Denies: Hx Peritoneal Dialysis GI Medical History: Reports: Hx Gastroesophageal Reflux Disease - Questionable mild reflux.. Denies: Hx Cirrhosis, Hx Hepatitis Musculoskeltal Medical History: Denies Hx Arthritis Psychiatric Medical History: Reports: Hx Anxiety, Hx Bipolar Disorder, Hx Depression Infectious Medical History: Denies: Hx C-Diff, Hx Hepatitis, Hx MRSA Past Surgical History: Reports: Hx Abdominal Surgery - Gastric bypass, Hx Bowel Surgery - Gastric bypass, Hx Cholecystectomy, Hx Gastric Bypass Surgery, Hx Tonsillectomy, Hx Tubal Ligation - Immunizations Immunizations up to date: Yes Hx Diphtheria, Pertussis, Tetanus Vaccination: Yes Physical Exam - Vital signs Vitals: Temp Pulse Resp BP Pulse Ox 99.1 F 77 18 111/71 98 11/02/18 11:50 11/02/18 11:50 11/02/18 11:50 11/02/18 11:50 11/02/18 11:50 Course - Vital Signs Vital signs: Temp Pulse Resp BP Pulse Ox 99.1 F 77 18 111/71 98 11/02/18 11:50 11/02/18 11:50 11/02/18 11:50 11/02/18 11:50 11/02/18 11:50 Doctor's Discharge - Discharge Referrals: ERIN CUELLAR DO [Primary Care Provider] - Follow up as needed
[2018-11-02 13:34] LABS: ABSOLUTE LYMPHOCYTES (AUTO) 0.6 10^3/uL (0.5-4.7); ABSOLUTE MONOCYTES (AUTO) 0.4 10^3/uL (0.1-1.4); BASOPHILS % (AUTO) 0.2 % (0-2); EOSINOPHILS % (AUTO) 0.6 % (0-6); HEMATOCRIT 36.3 % (36.0-47.0); HEMOGLOBIN 12.1 g/dL (12.0-15.5); LYMPHOCYTES % (AUTO) 12.1 % (13-45); MEAN CORPUSCULAR HGB CONC 33.3 g/dL (32.0-36.0); MEAN CORPUSCULAR VOLUME 84 fl (80-97); MONOCYTES % (AUTO) 7.7 % (3-13); RED BLOOD COUNT 4.32 10^6/uL (3.72-5.28); RED CELL DISTRIBUTION WIDTH 22.8 % (11.5-14.0); SEGMENTED NEUTROPHILS % (AUTO) 79.4 % (42-78); TOTAL CELLS COUNTED % (AUTO) 100 %; WHITE BLOOD COUNT 5.1 10^3/uL (4.0-10.5)
[2018-11-02 13:50] LABS: ANISOCYTOSIS 3+; OVALOCYTES SLIGHT; PLATELET COUNT 253 10^3/uL (150-450); POIKILOCYTOSIS SLIGHT; SCHISTOCYTES SLIGHT
[2018-11-02 13:51] LABS: PLATELET CLUMPS PRESENT; PLATELET COMMENT ADEQUATE
[2018-11-02 13:53] LABS: ALANINE AMINOTRANSFERASE 100 U/L (9-52); ALKALINE PHOSPHATASE 121 U/L (38-126); ANION GAP 7 (5-19); ASPARTATE AMINO TRANSFERASE 51 U/L (14-36); BILIRUBIN,DIRECT 0.2 mg/dL (0.0-0.4); BILIRUBIN,TOTAL 0.2 mg/dL (0.2-1.3); BLOOD UREA NITROGEN 13 mg/dL (7-20); CALCIUM 9.2 mg/dL (8.4-10.2); CARBON DIOXIDE 28 mmol/L (22-30); CHLORIDE 106 mmol/L (98-107); GLUCOSE 76 mg/dL (75-110); POTASSIUM 4.4 mmol/L (3.6-5.0); SODIUM 141.2 mmol/L (137-145); TOTAL PROTEIN 6.7 g/dL (6.3-8.2)
--- NOTE | 2018-11-02 15:10 | ER Document Report ---
ED Extremity Problem, Lower - General Chief Complaint: Leg Swelling Stated Complaint: LEG PAIN/SWELLING Time Seen by Provider: 11/02/18 12:21 Primary Care Provider: ERIN CUELLAR DO [Primary Care Provider] - Follow up as needed Mode of Arrival: Ambulatory Information source: Patient Notes: Patient is a 38-year-old female with lupus who presents to the ER today for approximately 1 week and a half of bilateral lower extremity swelling, left first and then right, excessive salivation and feeling like sometimes she "just cannot swallow." She denies any sore throat, states that it feels like sometimes it just "will not work." Patient apparently saw her regular doctor and had duplex of the left lower extremity performed which is negative for DVT. She has no kidney problems or heart problems that she knows of. Patient admits to aching in the ankles, she states that she is propping them up but it is not helping with the pain. She denies any chest pain or shortness of breath. TRAVEL OUTSIDE OF THE [place] IN LAST 30 DAYS: No - Related Data Allergies/Adverse Reactions: Penicillins Allergy (Verified 11/02/18 11:44) Past Medical History - General Information source: Patient - Social History Smoking Status: Never Smoker Chew tobacco use (# tins/day): No Frequency of alcohol use: None Drug Abuse: None Family History: CVA, Hypertension Patient has suicidal ideation: No Patient has homicidal ideation: No - Past Medical History Cardiac Medical History: Denies: Hx Congestive Heart Failure, Hx DVT, Hx Heart Attack, Hx Hypercholesterolemia, Hx Hypertension, Hx Pulmonary Embolism Pulmonary Medical History: Denies: Hx Asthma, Hx COPD, Hx Sleep Apnea Neurological Medical History: Denies: Hx Seizures Endocrine Medical History: Denies: Hx Diabetes Mellitus Type 1, Hx Diabetes Mellitus Type 2, Hx Hyperthyroidism, Hx Hypothyroidism Renal/ Medical History: Denies: Hx Peritoneal Dialysis GI Medical History: Reports: Hx Gastroesophageal Reflux Disease - Questionable mild reflux.. Denies: Hx Cirrhosis, Hx Hepatitis Musculoskeletal Medical History: Denies Hx Arthritis Psychiatric Medical History: Reports: Hx Anxiety, Hx Bipolar Disorder, Hx Depression Infectious Medical History: Denies: Hx C-Diff, Hx Hepatitis, Hx MRSA Past Surgical History: Reports: Hx Abdominal Surgery - Gastric bypass, Hx Bowel Surgery - Gastric bypass, Hx Cholecystectomy, Hx Gastric Bypass Surgery, Hx Tonsillectomy, Hx Tubal Ligation - Immunizations Immunizations up to date: Yes Hx Diphtheria, Pertussis, Tetanus Vaccination: Yes Review of Systems - Review of Systems Constitutional: No symptoms reported EENT: See HPI Cardiovascular: No symptoms reported Respiratory: No symptoms reported Gastrointestinal: No symptoms reported Genitourinary: No symptoms reported Female Genitourinary: No symptoms reported Musculoskeletal: See HPI Skin: See HPI Hematologic/Lymphatic: No symptoms reported Neurological/Psychological: No symptoms reported Physical Exam - Vital signs Vitals: Temp Pulse Resp BP Pulse Ox 99.1 F 77 18 111/71 98 11/02/18 11:50 11/02/18 11:50 11/02/18 11:50 11/02/18 11:50 11/02/18 11:50 - Notes Notes: PHYSICAL EXAMINATION: GENERAL: Well-appearing and in no acute distress. HEAD: Atraumatic, normocephalic. EYES: Pupils equal round and reactive to light, extraocular movements intact, sclera anicteric, conjunctiva are normal. ENT: Airway patent, ear canals without erythema or foreign body, TMs pearly robles with good bony landmarks, nares patent, oropharynx clear without exudates. Moist mucous membranes. NECK: Normal range of motion, supple without lymphadenopathy LUNGS: CTAB and equal. No wheezes rales or rhonchi. HEART: Regular rate and rhythm without murmurs ABDOMEN: Soft, no tenderness. No guarding, no rebound BACK: no vertebral tenderness, normal ROM GI/: no CVA tenderness EXTREMITIES: Normal range of motion, nonpitting bilateral lower extremity edema. No cyanosis. NEUROLOGICAL: Cranial nerves grossly intact. Normal sensory/motor exams. PSYCH: Normal mood, normal affect. SKIN: Warm, Dry, normal turgor, no rashes or lesions noted Course - Re-evaluation Re-evalutation: 11/02/18 15:10 Lab work is unremarkable with normal glucose today, I think this may have something to do with patient's lupus, patient is taking her prednisone, she states that the swelling has worsened on prednisone, I do advise that she stop taking the prednisone at this time as she states it does not feel like it is helping with anything, I will provide her with a short course of low-dose Lasix to try to help with the obvious lower extremity edema today, she will call her cultural historian in the morning. She is stable for discharge. - Vital Signs Vital signs: Temp Pulse Resp BP Pulse Ox 99.1 F 77 18 111/71 98 11/02/18 11:50 11/02/18 11:50 11/02/18 11:50 11/02/18 11:50 11/02/18 11:50 - Laboratory Result Diagrams: 11/02/18 13:03 11/02/18 13:03 Laboratory results interpreted by me: 11/02/18 11/02/18 13:03 13:03 RDW 22.8 H Seg Neutrophils % 79.4 H Lymphocytes % 12.1 L AST 51 H ALT 100 H Discharge - Discharge Clinical Impression: Edema of both lower extremities, Excessive salivation Condition: Stable Disposition: HOME, SELF-CARE Additional Instructions: Return immediately for any new or worsening symptoms. Follow up with your cultural historian, call tomorrow to make followup appointment. Prescriptions: Furosemide [Lasix 20 mg Tablet] 20 mg PO QAM #14 tablet Referrals: ERIN CUELLAR DO [Primary Care Provider] - Follow up as needed
[2018-11-02 15:26] VITALS: BP 113/75
== END 2018-11-02 15:30 | disposition home or self-care (01) ==
LOC: ER 11:37
DX: R60.0 Localized edema (principal); K11.7 Disturbances of salivary secretion; M25.571 Pain in right ankle and joints of right foot; M25.572 Pain in left ankle and joints of left foot; Z88.0 Allergy status to penicillin; Z98.84 Bariatric surgery status
CPT/HCPCS: 36415; 80053; 84703; 85025; 87086; 99283

== ENCOUNTER 2018-11-12 01:31 | Emergency (ER) | payer MEDICAID ==
--- NOTE | 2018-11-12 02:10 | ER Document Report ---
ED General - General Chief Complaint: Chest Pain Stated Complaint: CHEST PAIN/SHORTNESS OF BREATH Time Seen by Provider: 11/12/18 02:08 Primary Care Provider: ERIN CUELLAR DO [Primary Care Provider] - Follow up in 3-5 days Notes: Patient is a 38-year-old female with lupus that presents to the emergency [facility] for chief complaint of left-sided pleuritic chest pain. Patient states that this pain started this evening, she states that it came on all of a sudden, and it concerned her. She is mainly concerned of a possible pulmonary embolism although she does not have a history of DVT or PE. She states she was recently seen in the emergency department for having leg swelling, had duplex imaging that was negative. She was recently seen by her trolley car operator and had blood work drawn to demonstrate elevated CRP and ESR, and discussed increasing her CellCept, and putting her on a new rheumatologic medication, which has not been approved yet. She is complaining of body aches all over, and currently rates her pain as a 6 out of 10. She does have chronic pain which she does take Percocet at home for. She has had some associated shortness of breath with this, denies any diaphoresis. Denies radiation of the pain, states that it is worse with taking a deep breath. She states she is had pleurisy in the past but this seems to be worse. Denies any fevers, chills, night sweats, nausea, vomiti ng, diarrhea her dysuria or hematuria. Past Medical History: Lupus, chronic pain Past Surgical History: Tonsillectomy, cholecystectomy, gastric bypass Social History: Denies tobacco, alcohol or drug use. Family History: Reviewed and noncontributory for presenting illness Allergies: Reviewed, see documented allergy list. REVIEW OF SYSTEMS: Other than noted above, the 12 point review of systems was reviewed with the patient and were negative, all pertinent findings are included in the HPI. PHYSICAL EXAMINATION: Vital signs reviewed, nursing noted reviewed. GENERAL: Patient appears uncomfortable on exam, but no acute distress HEAD: Atraumatic, normocephalic. EYES: Eyes appear normal, extraocular movements intact, sclera anicteric, conjunctiva are normal. ENT: nares patent, oropharynx clear without exudates. Moist mucous membranes. NECK: Normal range of motion, supple without lymphadenopathy LUNGS: Breath sounds clear to auscultation bilaterally and equal. No wheezes rales or rhonchi. No chest wall tenderness. HEART: Regular rate and rhythm without murmurs ABDOMEN: Soft, nontender, normoactive bowel sounds. No rebound, guarding, or rigidity. No masses appreciated. EXTREMITIES: Nontender, good range of motion, no pitting or edema. NEUROLOGICAL: No focal neurological deficits. Moves all extremities spontaneously Motor and sensory grossly intact on exam. PSYCH: Normal mood, normal affect. SKIN: Warm, Dry, normal turgor, no rashes or lesions noted on exposed skin TRAVEL OUTSIDE OF THE [place] IN LAST 30 DAYS: No - Related Data Allergies/Adverse Reactions: Penicillins Allergy (Verified 11/02/18 11:44) Past Medical History - Social History Smoking Status: Never Smoker Family History: Reviewed & Not Pertinent, CVA, Hypertension - Past Medical History Cardiac Medical History: Denies: Hx Congestive Heart Failure, Hx DVT, Hx Heart Attack, Hx Hypercholesterolemia, Hx Hypertension, Hx Pulmonary Embolism Pulmonary Medical History: Denies: Hx Asthma, Hx COPD, Hx Sleep Apnea Neurological Medical History: Denies: Hx Seizures Endocrine Medical History: Denies: Hx Diabetes Mellitus Type 1, Hx Diabetes Mellitus Type 2, Hx Hyperthyroidism, Hx Hypothyroidism Renal/ Medical History: Denies: Hx Peritoneal Dialysis GI Medical History: Reports: Hx Gastroesophageal Reflux Disease - Questionable mild reflux.. Denies: Hx Cirrhosis, Hx Hepatitis Musculoskeletal Medical History: Denies Hx Arthritis Psychiatric Medical History: Reports: Hx Anxiety, Hx Bipolar Disorder, Hx Depression Infectious Medical History: Denies: Hx C-Diff, Hx Hepatitis, Hx MRSA Past Surgical History: Reports: Hx Abdominal Surgery - Gastric bypass, Hx Bowel Surgery - Gastric bypass, Hx Cholecystectomy, Hx Gastric Bypass Surgery, Hx Tonsillectomy, Hx Tubal Ligation - Immunizations Immunizations up to date: Yes Hx Diphtheria, Pertussis, Tetanus Vaccination: Yes Physical Exam - Vital signs Vitals: Temp Pulse Resp BP Pulse Ox 97.7 F 92 18 116/86 H 97 11/12/18 01:41 11/12/18 01:41 11/12/18 01:41 11/12/18 01:41 11/12/18 01:41 Course - Re-evaluation Re-evalutation: Patient seen and examined vital signs reviewed. Laboratory data and/or imaging were ordered as appropriate for the patient's presenting symptoms and complaint, with consideration of any critical or life threatening conditions that may be associated with their obtained history and exam as noted above. Patient was treated with IV morphine, and Zofran, CTA was ordered of the chest, patient has chronically elevated d-dimer, and is having pleuritic pain, she is high risk due to her chronic inflammatory state for pulmonary embolism, therefore this was ordered to rule out, cardiac work-up otherwise was ordered. Results were reviewed when available and demonstrated negative troponin, blood work was essentially unremarkable and stable anemia. The patient was re-evaluated and was stable and improved, was complaining of some epigastric abdominal pain which I treated with a GI cocktail, the patient got essentially completely relief of her pain, and was overall feeling much better. Evaluation was most consistent with chest pain, nonspecific and epigastric abd ominal pain, will prescribe the patient Carafate, and Zofran to take for nausea and abdominal pain and advised follow-up with her trolley car operator in addition to her primary care Results were discussed with the patient at this point, after careful consideration I feel that that patient can be discharged from the emergency department, the patient was educated treatments and reasons to return to the emergency department based on their presumed diagnosis as noted above, they were advised to followup with a primary care physician in 2-3 days. Patient was agreeable to plan of care. *Note is created using voice recognition software and may contain spelling, syntax or grammatical errors. Laboratory 11/12/18 11/12/18 11/12/18 02:15 02:15 02:15 WBC 4.9 RBC 4.10 Hgb 11.8 L Hct 34.7 L MCV 85 MCH 28.7 MCHC 33.9 RDW 21.7 H Plt Count 303 Seg Neutrophils % 67.9 Lymphocytes % 22.0 Monocytes % 7.0 Eosinophils % 2.8 Basophils % 0.3 Absolute Neutrophils 3.3 Absolute Lymphocytes 1.1 Absolute Monocytes 0.3 Absolute Eosinophils 0.1 Absolute Basophils 0.0 Clumped Platelets PRESENT Platelet Comment ADEQUATE Poikilocytosis 1+ Anisocytosis 3+ Tear Drop Cells SLIGHT Ovalocytes 1+ Schistocytes SLIGHT Sodium 142.5 Potassium 3.8 Chloride 107 Carbon Dioxide 26 Anion Gap 10 BUN 15 Creatinine 0.69 Est GFR ( Amer) > 60 Est GFR (Non-Af Amer) > 60 Glucose 86 Calcium 8.9 Total Bilirubin 0.2 Direct Bilirubin 0.2 Neonat Total Bilirubin Not Reportable Neonat Direct Bilirubin Not Reportable Neonat Indirect Bili Not Reportable AST 25 ALT 34 Alkaline Phosphatase 82 Troponin I < 0.012 Total Protein 6.2 L Albumin 3.5 Chest/Abdomen CTA 11/12/18 02:39 IMPRESSION: No CT evidence of acute pulmonary embolism TECHNICAL DOCUMENTATION: Quality ID # 436: Final reports with documentation of one or more dose reduction techniques (e.g., Automated exposure control, adjustment of the mA and/or kV according to patient size, use of iterative reconstruction technique) copyright 2010 [employer]- All Rights Reserved - Vital Signs Vital signs: Temp Pulse Resp BP Pulse Ox 97.7 F 92 14 110/67 98 11/12/18 01:41 11/12/18 01:41 11/12/18 05:01 11/12/18 05:01 11/12/18 05:01 - Laboratory Result Diagrams: 11/12/18 02:15 11/12/18 02:15 Laboratory results interpreted by me: 11/12/18 11/12/18 02:15 02:15 Hgb 11.8 L Hct 34.7 L RDW 21.7 H Total Protein 6.2 L - EKG Interpretation by Me Additional EKG results interpreted by me: EKG demonstrates sinus rhythm with a ventricular rate 85 bpm, normal axis, QTC 457 ms, no evidence of acute ischemia in this EKG, this is compared with a prior EKG from 09/12/2017, without significant change. Discharge - Discharge Clinical Impression: Epigastric abdominal pain, SLE exacerbation Chest pain Qualifiers: Chest pain type: unspecified Qualified Code(s): R07.9 - Chest pain, unspecified Condition: Stable Disposition: HOME, SELF-CARE Instructions: Abdominal Pain ([facility]), Chest Pain of Unclear Cause ([facility]) Additional Instructions: Please follow-up with your trolley car operator, and take all medications as prescribed. Prescriptions: Ondansetron [Zofran Odt 4 mg Tablet] 1 tab PO Q8H PRN #15 tab.rapdis PRN Reason: For Nausea/Vomiting Sucralfate [Carafate 1 gm Tablet] 1 gm PO ACHS #120 tablet Referrals: ERIN CUELLAR DO [Primary Care Provider] - Follow up in 3-5 days
[2018-11-12 02:28] LABS: ABSOLUTE EOSINOPHILS # (AUTO) 0.1 10^3/uL (0.0-0.6); ABSOLUTE LYMPHOCYTES (AUTO) 1.1 10^3/uL (0.5-4.7); ABSOLUTE MONOCYTES (AUTO) 0.3 10^3/uL (0.1-1.4); ABSOLUTE NEUT (AUTO) 3.3 10^3/uL (1.7-8.2); BASOPHILS % (AUTO) 0.3 % (0-2); EOSINOPHILS % (AUTO) 2.8 % (0-6); HEMATOCRIT 34.7 % (36.0-47.0); HEMOGLOBIN 11.8 g/dL (12.0-15.5); MEAN CORPUSCULAR HEMOGLOBIN 28.7 pg (27.0-33.4); MEAN CORPUSCULAR HGB CONC 33.9 g/dL (32.0-36.0); MEAN CORPUSCULAR VOLUME 85 fl (80-97); RED CELL DISTRIBUTION WIDTH 21.7 % (11.5-14.0); SEGMENTED NEUTROPHILS % (AUTO) 67.9 % (42-78); TOTAL CELLS COUNTED % (AUTO) 100 %; WHITE BLOOD COUNT 4.9 10^3/uL (4.0-10.5)
[2018-11-12] MEDS ORDERED: ONDANSETRON HCL INJ/PF 4 MG/2 ML SDV IV ONE (02:41)
[2018-11-12] MEDS ORDERED: MORPHINE SULFATE 10 MG/ML INJ IV ONE (02:41)
[2018-11-12 02:44] LABS: ANISOCYTOSIS 3+; POIKILOCYTOSIS 1+
[2018-11-12 02:45] LABS: OVALOCYTES 1+; PLATELET CLUMPS PRESENT; PLATELET COMMENT ADEQUATE; TEAR DROP CELLS SLIGHT
[2018-11-12 02:46] LABS: PLATELET COUNT 303 10^3/uL (150-450); SCHISTOCYTES SLIGHT
[2018-11-12 02:52] LABS: ALANINE AMINOTRANSFERASE 34 U/L (9-52); ALBUMIN 3.5 g/dL (3.5-5.0); ALKALINE PHOSPHATASE 82 U/L (38-126); ANION GAP 10 (5-19); ASPARTATE AMINO TRANSFERASE 25 U/L (14-36); BILIRUBIN,DIRECT 0.2 mg/dL (0.0-0.4); BILIRUBIN,TOTAL 0.2 mg/dL (0.2-1.3); BLOOD UREA NITROGEN 15 mg/dL (7-20); CALCIUM 8.9 mg/dL (8.4-10.2); CARBON DIOXIDE 26 mmol/L (22-30); CHLORIDE 107 mmol/L (98-107); GLUCOSE 86 mg/dL (75-110); POTASSIUM 3.8 mmol/L (3.6-5.0); SODIUM 142.5 mmol/L (137-145); TOTAL PROTEIN 6.2 g/dL (6.3-8.2)
[2018-11-12] MEDS ORDERED: HYDROMORPHONE HCL INJ/PF 2 MG/ML AMPULE IV ONE (03:54)
--- NOTE | 2018-11-12 04:21 | RADIOLOGY REPORT (SQ) ---
EXAM DESCRIPTION: CT CHEST ANGIOGRAPHY WITHOUT THEN WITH IV CONTRAST COMPLETED DATE/TME: 11/12/2018 02:39 CLINICAL HISTORY: 38 years, Female, pleuritic chest pain, hx lupus COMPARISON: None. TECHNIQUE: Axial CT images of the abdomen and pelvis were obtained after the initiation of IV contrast. MPR and MIP reconstructions were performed. DLP 432 Images stored on PACS. All CT scanners at this facility use dose modulation, iterative reconstruction, and/or weight based dosing when appropriate to reduce radiation dose to as low as reasonably achievable (ALARA). [facility]: Dose Right [facility]: CareDose [facility]: Dose Right [facility]: Teradose 4D [facility]: [employer] LIMITATIONS: None. FINDINGS: No pulmonary embolism is detected. The thyroid gland is normal. The central airways are patent. The heart is normal in size. There is no pericardial effusion. There is no mediastinal lymphadenopathy. The thoracic aorta is unremarkable. The lungs are clear. There is no pneumothorax or pleural effusion. There is no acute fracture. IMPRESSION: No CT evidence of acute pulmonary embolism TECHNICAL DOCUMENTATION: Quality ID # 436: Final reports with documentation of one or more dose reduction techniques (e.g., Automated exposure control, adjustment of the mA and/or kV according to patient size, use of iterative reconstruction technique) copyright 2010 [employer]- All Rights Reserved
[2018-11-12] MEDS ORDERED: LIDOCAINE 2% VISCOUS SOLN 20 ML UDCUP PO ONE (04:31)
[2018-11-12] MEDS ORDERED: MAG HYDROX/AL HYDROX/SIMETH SUSP 30 ML UDCUP PO ONE (04:31)
[2018-11-12] MEDS ORDERED: METOCLOPRAMIDE HCL ORAL SOLN 10 MG/10 ML UDCUP PO ONE (04:31)
[2018-11-12 05:34] VITALS: BP 110/67
--- NOTE | 2018-11-12 08:43 | EKG REPORT ---
SEVERITY:- NORMAL ECG - SINUS RHYTHM : Confirmed by: Gretel Major 12-Nov-2018 08:40:58
== END 2018-11-12 05:30 | disposition home or self-care (01) ==
LOC: ER 01:31
DX: R07.9 Chest pain, unspecified (principal); M32.9 Systemic lupus erythematosus, unspecified; R10.13 Epigastric pain; R06.02 Shortness of breath; M79.10 Myalgia, unspecified site; G89.29 Other chronic pain; Z79.899 Other long term (current) drug therapy
CPT/HCPCS: 36415; 71275; 80053; 84484; 85025; 93005; 93010; 96374; 96375; 99285; J1170; J2270; J2405; J3490

== ENCOUNTER 2019-05-03 10:59 | Emergency (ER) | payer MEDICAID ==
[2019-05-03] MEDS ORDERED: NORMAL SALINE 1000 ML 1,000 ML IV ONE (11:39)
[2019-05-03 12:38] LABS: ABSOLUTE EOSINOPHILS # (AUTO) 0.1 10^3/uL (0.0-0.6); ABSOLUTE LYMPHOCYTES (AUTO) 1.1 10^3/uL (0.5-4.7); ABSOLUTE MONOCYTES (AUTO) 0.4 10^3/uL (0.1-1.4); ABSOLUTE NEUT (AUTO) 4.1 10^3/uL (1.7-8.2); BASOPHILS % (AUTO) 0.6 % (0-2); EOSINOPHILS % (AUTO) 1.6 % (0-6); HEMATOCRIT 37.8 % (36.0-47.0); LYMPHOCYTES % (AUTO) 19.7 % (13-45); MEAN CORPUSCULAR HEMOGLOBIN 28.5 pg (27.0-33.4); MEAN CORPUSCULAR HGB CONC 34.3 g/dL (32.0-36.0); MEAN CORPUSCULAR VOLUME 83 fl (80-97); MONOCYTES % (AUTO) 6.9 % (3-13); PLATELET COUNT 267 10^3/uL (150-450); RED BLOOD COUNT 4.55 10^6/uL (3.72-5.28); RED CELL DISTRIBUTION WIDTH 14.7 % (11.5-14.0); SEGMENTED NEUTROPHILS % (AUTO) 71.2 % (42-78); TOTAL CELLS COUNTED % (AUTO) 100 %; WHITE BLOOD COUNT 5.7 10^3/uL (4.0-10.5)
[2019-05-03 12:49] LABS: APPEARANCE,URINE CLEAR; BILIRUBIN,URINE NEGATIVE (NEGATIVE); COLOR,URINE YELLOW; GLUCOSE, URINE NEGATIVE (NEGATIVE); KETONES,URINE NEGATIVE (NEGATIVE); PROTEIN,URINE NEGATIVE (NEGATIVE); URINE SPECIFIC GRAVITY 1.019; UROBILINOGEN,URINE NEGATIVE mg/dL (<2.0)
[2019-05-03 13:17] LABS: ALBUMIN 4.4 g/dL (3.5-5.0); ALKALINE PHOSPHATASE 82 U/L (38-126); ANION GAP 12 (5-19); ASPARTATE AMINO TRANSFERASE 27 U/L (14-36); BILIRUBIN,DIRECT 0.1 mg/dL (0.0-0.4); BILIRUBIN,TOTAL 0.4 mg/dL (0.2-1.3); BLOOD UREA NITROGEN 11 mg/dL (7-20); CALCIUM 9.1 mg/dL (8.4-10.2); CARBON DIOXIDE 24 mmol/L (22-30); CHLORIDE 105 mmol/L (98-107); GLUCOSE 98 mg/dL (75-110); POTASSIUM 3.8 mmol/L (3.6-5.0); TOTAL PROTEIN 7.4 g/dL (6.3-8.2)
--- NOTE | 2019-05-03 13:45 | ER Document Report ---
ED General - General Chief Complaint: Near Syncope Stated Complaint: BLOOD PRESSURE ISSUES Time Seen by Provider: 05/03/19 11:37 Primary Care Provider: VIK HODGSON PA-C [Primary Care Provider] - Follow up as needed Notes: Patient is a 38-year-old female who presents emergency department with a chief complaint of a syncopal episode. Patient states that she has not been feeling well for the past week, and then today she "collapsed.". She denies hitting her head. Denies any loss of consciousness. Patient states that she feels exhausted and she admits to not drinking enough water for the past few days. Patient has a history of pleurisy, lupus, and bipolar disorder. Patient states that she is taking her medication as prescribed. Patient denies any chest pain, shortness of breath, difficulty breathing, abdominal pain, or any other symptoms at this time. TRAVEL OUTSIDE OF THE [place] IN LAST 30 DAYS: No - Related Data Allergies/Adverse Reactions: Penicillins Allergy (Verified 11/02/18 11:44) Home Medications: lamictal, gabapentin, celexa, abilify, sellcept, methotrexate, aspirin, ambien at bedside, trazadone at bedtime, oxycodone PRN Past Medical History - Social History Smoking Status: Never Smoker Chew tobacco use (# tins/day): No Frequency of alcohol use: None Drug Abuse: None Family History: Reviewed & Not Pertinent, CVA, Hypertension Patient has suicidal ideation: No Patient has homicidal ideation: No - Past Medical History Cardiac Medical History: Denies: Hx Congestive Heart Failure, Hx DVT, Hx Heart Attack, Hx Hypercholesterolemia, Hx Hypertension, Hx Pulmonary Embolism Pulmonary Medical History: Denies: Hx Asthma, Hx COPD, Hx Sleep Apnea Neurological Medical History: Denies: Hx Seizures Endocrine Medical History: Denies: Hx Diabetes Mellitus Type 1, Hx Diabetes Mellitus Type 2, Hx Hyperthyroidism, Hx Hypothyroidism Renal/ Medical History: Denies: Hx Peritoneal Dialysis GI Medical History: Reports: Hx Gastroesophageal Reflux Disease - Questionable mild reflux.. Denies: Hx Cirrhosis, Hx Hepatitis Musculoskeletal Medical History: Denies Hx Arthritis Psychiatric Medical History: Reports: Hx Anxiety, Hx Bipolar Disorder, Hx Depression Infectious Medical History: Denies: Hx C-Diff, Hx Hepatitis, Hx MRSA Past Surgical History: Reports: Hx Abdominal Surgery - Gastric bypass, Hx Bowel Surgery - Gastric bypass, Hx Cholecystectomy, Hx Gastric Bypass Surgery, Hx Tonsillectomy, Hx Tubal Ligation - Immunizations Immunizations up to date: Yes Hx Diphtheria, Pertussis, Tetanus Vaccination: Yes Review of Systems - Review of Systems Notes: REVIEW OF SYSTEMS: CONSTITUTIONAL : Denies recent illness. Denies recent unintentional weight loss. Denies fever, chills, or sweats. EENT: Denies eye, ear, throat, or mouth pain, discharge, or symptoms. Denies nasal or sinus congestion. CARDIOVASCULAR: Denies chest pain. RESPIRATORY: Denies shortness of breath, cough, congestion, difficulty breathing, or wheezing. GASTROINTESTINAL: Denies nausea, vomiting, and diarrhea. Denies abdominal pain. Denies constipation. GENITOURINARY: Denies difficulty urinating, burning, blood in urine, urgency or frequency. MUSCULOSKELETAL: Denies neck and back pain. Denies joint pain or swelling. SKIN: Denies rash, itchiness, or lesions HEMATOLOGIC : Denies easy bruising or bleeding. LYMPHATIC: Denies swollen, painful, enlarged glands. NEUROLOGICAL: See HPI. PSYCHIATRIC: Denies stress, anxiety, alteration in sleep patterns, or depression. All other systems reviewed and negative. Physical Exam - Vital signs Vitals: Temp Pulse Resp BP Pulse Ox 98.1 F 78 20 120/75 100 05/03/19 11:24 05/03/19 11:24 05/03/19 11:24 05/03/19 11:24 05/03/19 11:24 - Notes Notes: PHYSICAL EXAMINATION: GENERAL: Appears well, healthy, well-nourished, no acute distress. HEAD: Normocephalic, atraumatic. EYES: PERRL, conjunctiva normal, all extraocular movements intact, sclera nonicteric ENT: Moist mucous membranes. NECK: Supple, no noticeable swelling, redness, rash. Normal range of motion. LUNGS: Equal breath sounds bilaterally and clear to auscultation. No wheezes rales or rhonchi. CARDIOVASCULAR: S1-S2, regular rate, regular rhythm. Radial pulses 2+, normal. ABDOMEN: Normoactive bowel sounds. Soft, nontender, no guarding, no rebound tenderness, and no masses palpated. EXTREMITIES: Normal strength and range of motion, no pitting or edema. No cyanosis. NEUROLOGICAL: Moves all extremities upon command. Strength 5/5 in all extremities. PSYCH: Normal mood, normal affect. SKIN: Warm, dry. No rash, lesions, ulcerations noted. Normal skin turgor. Course - Re-evaluation Re-evalutation: 05/03/19 13:49 Patient's hematology is stable, but due to her hemoglobin hematocrit being up and she normally has iron deficiency anemia, I suspect the patient is dehydrated. Her chemistries are unremarkable. Urinalysis is normal. EKG is normal. I have advised that the patient to have close follow-up with her rubber stamp die inspector. She is in agreement with this plan. Follow-up precautions were given. Verbal discharge instructions were given to the patient. They verbalized understanding. They are stable for discharge. - Vital Signs Vital signs: Temp Pulse Resp BP Pulse Ox 98.1 F 78 20 120/75 100 05/03/19 11:24 05/03/19 11:24 05/03/19 11:24 05/03/19 11:24 05/03/19 11:24 - Laboratory Result Diagrams: 05/03/19 12:20 05/03/19 12:20 Laboratory results interpreted by me: 05/03/19 12:20 RDW 14.7 H - EKG Interpretation by Me Additional EKG results interpreted by me: 05/03/19 13:48 Sinus rhythm. Rate 67. SC 156; QRS 92; QT 420; QTc 444. No ST elevations or depressions noted. No change from previous EKG done on 11/12/2018. Discharge - Discharge Clinical Impression: Near syncope, Dehydration Condition: Stable Disposition: HOME, SELF-CARE Additional Instructions: You were seen today in the emergency department for almost passing out. Your labs show that you are slightly dehydrated. Your EKG was normal. Make sure you are drinking enough water. Please follow-up with your primary care doctor and your rubber stamp die inspector in regards to this visit. Forms: Return to Work Referrals: ERIN CUELLAR DO [NO LOCAL MD] - Follow up in 3-5 days HILLARY LEACH DO [NO LOCAL MD] - Follow up in 3-5 days
[2019-05-03 14:03] VITALS: BP 108/72
--- NOTE | 2019-05-03 15:05 | EKG REPORT ---
SEVERITY:- NORMAL ECG - SINUS RHYTHM : Confirmed by: Mya Hopper MD 03-May-2019 15:05:05
== END 2019-05-03 14:05 | disposition home or self-care (01) ==
LOC: ER 10:59
DX: R55 Syncope and collapse (principal); E86.0 Dehydration; Z79.899 Other long term (current) drug therapy
CPT/HCPCS: 93005; 36415; 85025; 80053; 81001; 93010; J7030; 99284

== ENCOUNTER 2019-05-23 13:09 | Emergency (ER) | payer MEDICAID ==
[2019-05-23] MEDS ORDERED: ONDANSETRON HCL INJ/PF 4 MG/2 ML SDV IV ONE (13:37)
--- NOTE | 2019-05-23 13:37 | ER Document Report ---
ED Medical Screen (RME) - General Chief Complaint: Leg Swelling Stated Complaint: DIZZY/LEG SWELLING/SHAKING Time Seen by Provider: 05/23/19 13:30 Primary Care Provider: VIK HODGSON PA-C [Primary Care Provider] - Follow up as needed Mode of Arrival: Wheelchair Information source: Patient Notes: Patient presents with multiple complaints. Patient complains of bilateral lower extremity swelling, generalized body aches nausea and vomiting and dizziness in which she feels like she is going to pass out. Patient states she is vomited 3 times today. Patient does complain of right upper quadrant pain for the past 2 days. Patient denies any cough or chest pain symptoms. Patient does have a history of lupus and feels like she is having a flareup. Patient also reports a history of elevated LFTs in the past with a history of gastric bypass and a previous cholecystectomy. I have greeted and performed a rapid initial assessment of this patient. A comprehensive ED assessment and evaluation of the patient, analysis of test results and completion of the medical decision making process will be conducted by additional ED providers. TRAVEL OUTSIDE OF THE [place] IN LAST 30 DAYS: No - Related Data Allergies/Adverse Reactions: Penicillins Allergy (Verified 05/23/19 13:35) Home Medications: abilfy. gabapentin. lamictal. celexa. ambien. trazadone. celcept. methetrexate. asa. multivitamin Past Medical History - Social History Chew tobacco use (# tins/day): No Frequency of alcohol use: None Drug Abuse: None - Past Medical History Cardiac Medical History: Denies: Hx Congestive Heart Failure, Hx DVT, Hx Heart Attack, Hx Hypercholesterolemia, Hx Hypertension, Hx Pulmonary Embolism Pulmonary Medical History: Denies: Hx Asthma, Hx COPD, Hx Sleep Apnea Neurological Medical History: Denies: Hx Seizures Endocrine Medical History: Denies: Hx Diabetes Mellitus Type 1, Hx Diabetes Mellitus Type 2, Hx Hyperthyroidism, Hx Hypothyroidism Renal/ Medical History: Denies: Hx Peritoneal Dialysis GI Medical History: Reports: Hx Gastroesophageal Reflux Disease - Questionable mild reflux.. Denies: Hx Cirrhosis, Hx Hepatitis Musculoskeltal Medical History: Denies Hx Arthritis Psychiatric Medical History: Reports: Hx Anxiety, Hx Bipolar Disorder, Hx Depression Infectious Medical History: Denies: Hx C-Diff, Hx Hepatitis, Hx MRSA Past Surgical History: Reports: Hx Abdominal Surgery - Gastric bypass, Hx Bowel Surgery - Gastric bypass, Hx Cholecystectomy, Hx Gastric Bypass Surgery, Hx Tonsillectomy, Hx Tubal Ligation - Immunizations Immunizations up to date: Yes Hx Diphtheria, Pertussis, Tetanus Vaccination: Yes Physical Exam - Vital signs Vitals: Temp Pulse Resp BP Pulse Ox 98.3 F 92 20 118/75 97 05/23/19 13:13 05/23/19 13:13 05/23/19 13:13 05/23/19 13:13 05/23/19 13:13 - General General appearance: Alert Notes: Bilateral lower extremity edema, right upper quadrant tenderness Course - Vital Signs Vital signs: Temp Pulse Resp BP Pulse Ox 98.3 F 92 20 118/75 97 05/23/19 13:13 05/23/19 13:13 05/23/19 13:13 05/23/19 13:13 05/23/19 13:13 Doctor's Discharge - Discharge Referrals: VIK HODGSON PA-C [Primary Care Provider] - Follow up as needed
[2019-05-23 14:05] LABS: ABSOLUTE EOSINOPHILS # (AUTO) 0.1 10^3/uL (0.0-0.6); ABSOLUTE LYMPHOCYTES (AUTO) 1.1 10^3/uL (0.5-4.7); ABSOLUTE MONOCYTES (AUTO) 0.4 10^3/uL (0.1-1.4); ABSOLUTE NEUT (AUTO) 2.7 10^3/uL (1.7-8.2); BASOPHILS % (AUTO) 0.5 % (0-2); EOSINOPHILS % (AUTO) 2.8 % (0-6); HEMATOCRIT 32.3 % (36.0-47.0); MEAN CORPUSCULAR HEMOGLOBIN 27.8 pg (27.0-33.4); MEAN CORPUSCULAR VOLUME 82 fl (80-97); MONOCYTES % (AUTO) 8.5 % (3-13); PLATELET COUNT 268 10^3/uL (150-450); RED BLOOD COUNT 3.96 10^6/uL (3.72-5.28); RED CELL DISTRIBUTION WIDTH 15.8 % (11.5-14.0); SEGMENTED NEUTROPHILS % (AUTO) 63.2 % (42-78); TOTAL CELLS COUNTED % (AUTO) 100 %; WHITE BLOOD COUNT 4.2 10^3/uL (4.0-10.5)
[2019-05-23 14:17] LABS: APPEARANCE,URINE CLEAR; BILIRUBIN,URINE NEGATIVE (NEGATIVE); COLOR,URINE YELLOW; GLUCOSE, URINE NEGATIVE (NEGATIVE); KETONES,URINE NEGATIVE (NEGATIVE); LEUKOCYTE ESTERASE,URINE TRACE (NEGATIVE); NITRITE,URINE NEGATIVE (NEGATIVE); PROTEIN,URINE NEGATIVE (NEGATIVE); URINE SPECIFIC GRAVITY 1.019; UROBILINOGEN,URINE NEGATIVE mg/dL (<2.0)
[2019-05-23 14:21] LABS: ALBUMIN 3.8 g/dL (3.5-5.0); ALKALINE PHOSPHATASE 112 U/L (38-126); ANION GAP 7 (5-19); ASPARTATE AMINO TRANSFERASE 43 U/L (14-36); BILIRUBIN,DIRECT 0.3 mg/dL (0.0-0.4); BILIRUBIN,TOTAL 0.5 mg/dL (0.2-1.3); BLOOD UREA NITROGEN 7 mg/dL (7-20); CALCIUM 8.8 mg/dL (8.4-10.2); CARBON DIOXIDE 29 mmol/L (22-30); CHLORIDE 104 mmol/L (98-107); GLUCOSE 82 mg/dL (75-110); POTASSIUM 3.9 mmol/L (3.6-5.0); TOTAL PROTEIN 6.6 g/dL (6.3-8.2)
[2019-05-23] MEDS ORDERED: OXYCODONE-ACETAMINOPHEN 5-325 MG TABLET PO ONE (14:28)
--- NOTE | 2019-05-23 14:29 | ER Document Report ---
ED General - General Chief Complaint: Leg Swelling Stated Complaint: DIZZY/LEG SWELLING/SHAKING Time Seen by Provider: 05/23/19 13:30 Primary Care Provider: VIK HODGSON PA-C [Primary Care Provider] - Follow up as needed Mode of Arrival: Wheelchair Notes: HPI: 38-year-old female that presents today stating 1 3 days of some bilateral swelling to the lower legs. She denies any recent trips or travel. She denies any chest pain or shortness of breath. Patient also states she has had some mild intermittent pain to the epigastric right upper quadrant region. History of gastric bypass as well as cholecystectomy in the past. 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 This is Dr. Montero in [place]. Supposedly the patient has had some elevated liver enzymes in the past. She states she has had a history of lower extremity edema x1 in the past and was started on Lasix which resolved the edema. Patient also states she is having some urinary urgency without dysuria, fevers, but the patient did vomit x3. ROS: See HPI All other review of systems reviewed and otherwise negative Reviewed vital signs and nursing note as charted by RN. PHYSICAL EXAM: CONSTITUTIONAL: Alert and oriented and responds appropriately to questions. Well-appearing; well-nourished HEAD: Normocephalic; atraumatic EYES: PERRL; Conjunctivae clear, sclerae non-icteric ENT: Normal nose; no rhinorrhea; moist mucous membranes; pharynx without lesions noted NECK: Supple without meningismus; non-tender; no cervical lymphadenopathy, no masses CARD: Regular rate and rhythm; no murmurs; symmetric distal pulses RESP: Normal chest excursion without splinting or tachypnea; breath sounds clear and equal bilaterally; no wheezes, no rhonchi, no rales ABD/GI: Normal bowel sounds; non-distended; soft, mildly tender to the epigastric region without rebound or guarding. No lower abdominal tenderness; no palpable organomegaly or masses BACK: The back appears normal and is non-tender to palpation EXT: Normal ROM in all joints; non-tender to palpation; no obvious edema to all 4 extremities at this time. Vascularly intact to all 4 extremities SKIN: No acute lesions noted NEURO: CN 2-12 intact; 5/5 bilateral upper and lower extremity strength with sensation intact to light touch PSYCH: The patient's mood and manner are appropriate. Grooming and personal hygiene are appropriate. TRAVEL OUTSIDE OF THE [place] IN LAST 30 DAYS: No - Related Data Allergies/Adverse Reactions: Penicillins Allergy (Verified 05/23/19 13:35) Home Medications: abilfy. gabapentin. lamictal. celexa. ambien. trazadone. celcept. methetrexate. asa. multivitamin Past Medical History - General Information source: Patient - Social History Smoking Status: Never Smoker Chew tobacco use (# tins/day): No Frequency of alcohol use: None Drug Abuse: None Family History: Reviewed & Not Pertinent, CVA, Hypertension Patient has suicidal ideation: No Patient has homicidal ideation: No - Past Medical History Cardiac Medical History: Denies: Hx Congestive Heart Failure, Hx DVT, Hx Heart Attack, Hx Hypercholesterolemia, Hx Hypertension, Hx Pulmonary Embolism Pulmonary Medical History: Denies: Hx Asthma, Hx COPD, Hx Sleep Apnea Neurological Medical History: Denies: Hx Seizures Endocrine Medical History: Denies: Hx Diabetes Mellitus Type 1, Hx Diabetes Mellitus Type 2, Hx Hyperthyroidism, Hx Hypothyroidism Renal/ Medical History: Denies: Hx Peritoneal Dialysis GI Medical History: Reports: Hx Gastroesophageal Reflux Disease - Questionable mild reflux.. Denies: Hx Cirrhosis, Hx Hepatitis Musculoskeletal Medical History: Denies Hx Arthritis Psychiatric Medical History: Reports: Hx Anxiety, Hx Bipolar Disorder, Hx Depression Infectious Medical History: Denies: Hx C-Diff, Hx Hepatitis, Hx MRSA Past Surgical History: Reports: Hx Abdominal Surgery - Gastric bypass, Hx Bowel Surgery - Gastric bypass, Hx Cholecystectomy, Hx Gastric Bypass Surgery, Hx Tonsillectomy, Hx Tubal Ligation - Immunizations Immunizations up to date: Yes Hx Diphtheria, Pertussis, Tetanus Vaccination: Yes Physical Exam - Vital signs Vitals: Temp Pulse Resp BP Pulse Ox 98.3 F 92 20 118/75 97 05/23/19 13:13 05/23/19 13:13 05/23/19 13:13 05/23/19 13:13 05/23/19 13:13 Course - Re-evaluation Re-evalutation: Given the above history and physical we will obtain basic labs, cardiac labs, x- ray of the chest, BNP, and reassess. No obvious unilateral swelling or pain on exam. No obvious edema on exam. I do believe bilateral DVT to be unlikely. EKG shows a rate of 70, normal sinus rhythm, normal axis, no ST elevation or depression. 05/23/19 15:11 EKG as recorded. X-ray of the chest, liver panel, and troponin as recorded. No change in exam. 05/23/19 15:17 Patient still complains of right upper quadrant abdominal discomfort. Given the history of lupus I will obtain a CT scan of the abdomen and pelvis with IV contrast only. 05/23/19 16:59 CT imaging as recorded. Vital signs are stable. I was going to start the patient on a small dose of Lasix with strict return precautions and follow-up with a fine arts teacher. However the patient states when she was given this med ication the fine arts teacher told her to discontinue it. I will therefore hold on this medication at this time. It is Friday afternoon after 5 PM so the patient states she will call her fine arts teacher tomorrow morning. Given the above work-up I believe this is reasonable. Patient will be discharge d home with strict return precautions. - Vital Signs Vital signs: Temp Pulse Resp BP Pulse Ox 98.3 F 92 11 L 110/75 99 05/23/19 13:13 05/23/19 13:13 05/23/19 15:01 05/23/19 15:01 05/23/19 15:01 - Laboratory Result Diagrams: 05/23/19 13:55 05/23/19 13:55 Laboratory results interpreted by me: 05/23/19 05/23/19 05/23/19 13:55 13:55 13:55 Hgb 11.0 L Hct 32.3 L RDW 15.8 H AST 43 H NT-Pro-B Natriuret Pep 422 H Ur Leukocyte Esterase 05/23/19 14:07 Hgb Hct RDW AST NT-Pro-B Natriuret Pep Ur Leukocyte Esterase TRACE H Discharge - Discharge Clinical Impression: Swelling of lower extremity, Abdominal discomfort Condition: Good Disposition: HOME, SELF-CARE Additional Instructions: Come back immediately with any fevers, increased pain, change in location or quality of pain, weakness or numbness, increased swelling, unilateral swelling, or any other acute problems. Please make sure that you follow-up with your fine arts teacher and primary care doctor as discussed. Referrals: VIK HODGSON PA-C [Primary Care Provider] - Follow up as needed
--- NOTE | 2019-05-23 14:32 | RADIOLOGY REPORT (SQ) ---
EXAM DESCRIPTION: CHEST 2 VIEWS COMPLETED DATE/TIME: 05/23/2019 2:21 pm REASON FOR STUDY: dizzy, RUQ pain COMPARISON: 09/12/2017. EXAM PARAMETERS: NUMBER OF VIEWS: two views TECHNIQUE: Digital Frontal and Lateral radiographic views of the chest acquired. RADIATION DOSE: NA LIMITATIONS: none FINDINGS: LUNGS AND PLEURA: No opacities, masses or pneumothorax. No pleural effusion. MEDIASTINUM AND HILAR STRUCTURES: No masses or contour abnormalities. HEART AND VASCULAR STRUCTURES: Heart normal size. No evidence for failure. BONES: No acute findings. HARDWARE: None in the chest. OTHER: No other significant finding. IMPRESSION: NO ACUTE RADIOGRAPHIC FINDING IN THE CHEST. TECHNICAL DOCUMENTATION: JOB ID: [id number] [email or web address]- All Rights Reserved Reading location - IP/workstation name: [email or web address]
[2019-05-23 14:33] LABS: NT PRO BNP 422 pg/mL (<125)
[2019-05-23 14:34] LABS: TROPONIN I < 0.012 ng/mL
[2019-05-23] MEDS ORDERED: MORPHINE SULFATE 10 MG/ML INJ IV ONE (15:18)
--- NOTE | 2019-05-23 16:21 | RADIOLOGY REPORT (SQ) ---
EXAM DESCRIPTION: CT ABD/PELVIS WITH IV ONLY COMPLETED DATE/TIME: 05/23/2019 3:49 pm REASON FOR STUDY: 7; RUQ pain; h/o lupus COMPARISON: CT abdomen pelvis 09/09/2017 TECHNIQUE: CT scan of the abdomen and pelvis performed using helical scanning technique with dynamic intravenous contrast injection. No oral contrast. Images reviewed with lung, soft tissue, and bone windows. Reconstructed coronal and sagittal MPR images reviewed. Delayed images for evaluation of the urinary system also acquired. All images stored on PACS. All CT scanners at this facility use dose modulation, iterative reconstruction, and/or weight based d osing when appropriate to reduce radiation dose to as low as reasonably achievable (ALARA). [facility]: Dose Right [facility]: CareDose [facility]: Dose Right [facility]: Teradose 4D [facility]: Breathez Vac Services CONTRAST TYPE AND DOSE: contrast/concentration: Isovue 350.00 mg/ml; Total Contrast Delivered: 83.0 ml; Total Saline Delivered: 72.0 ml 83 mL Isovue 350- low osmolar. RENAL FUNCTION: BUN 7, creatinine 0.76 RADIATION DOSE: CT Rad equipment meets quality standard of care and radiation dose reduction techniq ues were employed. CTDIvol: 11.3 - 14.5 mGy. DLP: 1509 mGy-cm.. LIMITATIONS: None. FINDINGS: LOWER CHEST: No significant findings. No nodules or infiltrates. LIVER: Mildly enlarged. No masses. Mild intrahepatic biliary ductal dilatation, an expected finding status post cholecystectomy. SPLEEN: Mildly enlarged. No focal lesions. PANCREAS: No masses. No significant calcifications. No adjacent inflammation or peripancreatic fluid collections. Pancreatic duct not dilated. GALLBLADDER: Surgically absent. ADRENAL GLANDS: No significant masses or asymmetry. RIGHT KIDNEY AND URETER: No solid masses. No significant calcifications. No hydronephrosis or hyd roureter. LEFT KIDNEY AND URETER: No solid masses. No significant calcifications. No hydronephrosis or hydr oureter. AORTA AND VESSELS: No aneurysm. No dissection. Renal arteries, SMA, celiac without stenosis. RETROPERITONEUM: No retroperitoneal adenopathy, hemorrhage or masses. BOWEL AND PERITONEAL CAVITY: Postsurgical changes of bariatric surgery. Small hiatal hernia, unchang ed. Mild fecalization of the terminal ileum. No masses or inflammatory changes. No free fluid or pe ritoneal masses. APPENDIX: Normal. PELVIS: Intrauterine device within the endometrial cavity. Tampon within the vagina. No mass. No f ree fluid. Normal bladder. ABDOMINAL WALL: No masses. No hernias. BONES: No significant or acute findings. OTHER: No other significant finding. IMPRESSION: NO SIGNIFICANT OR ACUTE FINDING IN THE ABDOMEN OR PELVIS ON CT SCAN WITH IV CONTRAST. TECHNICAL DOCUMENTATION: JOB ID: [id number] Quality ID # [id number]: Final reports with documentation of one or more dose reduction techniques (e.g., Au tomated exposure control, adjustment of the mA and/or kV according to patient size, use of iterative reconstruction technique) 2010 [employer]- All Rights Reserved Reading location - IP/workstation name: [email or web address]
[2019-05-23 17:29] VITALS: BP 112/65
--- NOTE | 2019-05-23 23:37 | EKG REPORT ---
SEVERITY:- NORMAL ECG - SINUS RHYTHM : Confirmed by: Gretel Major 23-May-2019 23:35:21
== END 2019-05-23 17:29 | disposition home or self-care (01) ==
LOC: ER 13:09
DX: M79.89 Other specified soft tissue disorders (principal); R10.11 Right upper quadrant pain; R39.15 Urgency of urination; R11.10 Vomiting, unspecified; F31.9 Bipolar disorder, unspecified; Z79.899 Other long term (current) drug therapy; Z79.82 Long term (current) use of aspirin; Z98.84 Bariatric surgery status; Z90.49 Acquired absence of other specified parts of digestive tract
CPT/HCPCS: 93005; 99285; 96374; 96375; 36415; 84703; 85025; 80053; 81001; 84484; 83880; 71046; 74177; 93010; J2270; J2405

== ENCOUNTER 2019-05-27 14:29 | Emergency (ER) | payer MEDICAID ==
[2019-05-27 14:47] VITALS: BP 129/78
--- NOTE | 2019-05-27 15:27 | ER Document Report ---
ED Medical Screen (RME) - General Chief Complaint: Bloody Stools Stated Complaint: DIAHERRA/BLOODY STOOLS Time Seen by Provider: 05/27/19 15:17 Primary Care Provider: VIK HODGSON PA-C [Primary Care Provider] - Follow up as needed Mode of Arrival: Ambulatory Information source: Patient TRAVEL OUTSIDE OF THE [place] IN LAST 30 DAYS: No - HPI Notes: 05/27/19 15:25 38-year-old female with a history of lupus presents to the ED for evaluation of melena for the last 4 bowel movements, right-sided chest pain with cough with bilateral leg swelling. Patient reports that she does not have any external hemorrhoids or internal hemorrhoids, is on her menstrual cycle and has not had constipation. Her film sound engineer wanted her evaluated for a GI bleed as well as pericarditis due to having right-sided chest pain however she was not formally diagnosed. Patient reports her film sound engineer to put her on Lasix due to her pericarditis, states she has lost 4 pounds however she states her cough is getting worse as well as right-sided chest pain. Denies any fevers or chills. Denies any shortness of breath, weakness, nausea vomiting. Is not on any blood thinners, does not have any clotting disorders I have greeted and performed a rapid initial assessment of this patient. A comprehensive ED assessment and evaluation of the patient, analysis of test results and completion of the medical decision making process will be conducted by additional ED providers. PHYSICAL EXAMINATION: GENERAL: Well-appearing, well-nourished and in no acute distress. HEAD: Atraumatic, normocephalic. EYES: Pupils equal round extraocular movements intact, conjunctiva are normal. ENT: Nares patent NECK: Normal range of motion LUNGS: No respiratory distress Musculoskeletal: Normal range of motion NEUROLOGICAL: Normal speech, normal gait. PSYCH: Normal mood, normal affect. SKIN: Warm, Dry, normal turgor, no rashes or lesions noted. Bilateral edema in lower extremities - Related Data Allergies/Adverse Reactions: Penicillins Allergy (Verified 05/23/19 13:35) Past Medical History - Social History Chew tobacco use (# tins/day): No Frequency of alcohol use: None Drug Abuse: None - Past Medical History Cardiac Medical History: Denies: Hx Congestive Heart Failure, Hx DVT, Hx Heart Attack, Hx Hypercholesterolemia, Hx Hypertension, Hx Pulmonary Embolism Pulmonary Medical History: Denies: Hx Asthma, Hx COPD, Hx Sleep Apnea Neurological Medical History: Denies: Hx Seizures Endocrine Medical History: Denies: Hx Diabetes Mellitus Type 1, Hx Diabetes Mellitus Type 2, Hx Hyperthyroidism, Hx Hypothyroidism Renal/ Medical History: Denies: Hx Peritoneal Dialysis GI Medical History: Reports: Hx Gastroesophageal Reflux Disease - Questionable mild reflux.. Denies: Hx Cirrhosis, Hx Hepatitis Musculoskeltal Medical History: Denies Hx Arthritis Psychiatric Medical History: Reports: Hx Anxiety, Hx Bipolar Disorder, Hx Depression Infectious Medical History: Denies: Hx C-Diff, Hx Hepatitis, Hx MRSA Past Surgical History: Reports: Hx Abdominal Surgery - Gastric bypass, Hx Bowel Surgery - Gastric bypass, Hx Cholecystectomy, Hx Gastric Bypass Surgery, Hx Tonsillectomy, Hx Tubal Ligation - Immunizations Immunizations up to date: Yes Hx Diphtheria, Pertussis, Tetanus Vaccination: Yes Physical Exam - Vital signs Vitals: Temp Pulse Resp BP Pulse Ox 98.1 F 62 18 129/78 H 98 05/27/19 14:46 05/27/19 14:46 05/27/19 14:46 05/27/19 14:46 05/27/19 14:46 Course - Vital Signs Vital signs: Temp Pulse Resp BP Pulse Ox 98.1 F 62 18 129/78 H 98 05/27/19 15:22 05/27/19 15:22 05/27/19 15:22 05/27/19 15:22 05/27/19 15:22 Doctor's Discharge - Discharge Referrals: VIK HODGSON PA-C [Primary Care Provider] - Follow up as needed
--- NOTE | 2019-05-27 16:01 | RADIOLOGY REPORT (SQ) ---
EXAM DESCRIPTION: CHEST SINGLE VIEW COMPLETED DATE/TIME: 05/27/2019 3:47 pm REASON FOR STUDY: R sided CP COMPARISON: 05/23/2019 EXAM PARAMETERS: NUMBER OF VIEWS: One view. TECHNIQUE: Single frontal radiographic view of the chest acquired. RADIATION DOSE: NA LIMITATIONS: None. FINDINGS: LUNGS AND PLEURA: Stable minimal to slight slight blunting of the right costophrenic angl e may represent pleural effusion versus pleural reaction. No acute pulmonary consolidation. No pneu mothorax. MEDIASTINUM AND HILAR STRUCTURES: No masses. Contour normal. HEART AND VASCULAR STRUCTURES: Heart normal in size. Normal vasculature. BONES: No acute findings. HARDWARE: None in the chest. OTHER: No other significant finding. IMPRESSION: 1. No acute pulmonary consolidation. Minimal to very slight blunting at the right cost ophrenic angle may represent effusion versus pleural reaction. TECHNICAL DOCUMENTATION: JOB ID: [id number] [employer]- All Rights Reserved Reading location - IP/workstation name: [email or web address]
[2019-05-27 17:09] LABS: ABSOLUTE LYMPHOCYTES (AUTO) 1.1 10^3/uL (0.5-4.7); ABSOLUTE MONOCYTES (AUTO) 0.4 10^3/uL (0.1-1.4); ABSOLUTE NEUT (AUTO) 4.5 10^3/uL (1.7-8.2); BASOPHILS % (AUTO) 0.4 % (0-2); EOSINOPHILS % (AUTO) 0.6 % (0-6); HEMATOCRIT 35.1 % (36.0-47.0); HEMOGLOBIN 11.9 g/dL (12.0-15.5); LYMPHOCYTES % (AUTO) 17.6 % (13-45); MEAN CORPUSCULAR HEMOGLOBIN 27.3 pg (27.0-33.4); MEAN CORPUSCULAR HGB CONC 33.8 g/dL (32.0-36.0); MEAN CORPUSCULAR VOLUME 81 fl (80-97); PLATELET COUNT 308 10^3/uL (150-450); RED BLOOD COUNT 4.35 10^6/uL (3.72-5.28); RED CELL DISTRIBUTION WIDTH 15.4 % (11.5-14.0); SEGMENTED NEUTROPHILS % (AUTO) 74.4 % (42-78); TOTAL CELLS COUNTED % (AUTO) 100 %; WHITE BLOOD COUNT 6.1 10^3/uL (4.0-10.5)
[2019-05-27 17:38] LABS: ALBUMIN 4.6 g/dL (3.5-5.0); ALKALINE PHOSPHATASE 89 U/L (38-126); ANION GAP 10 (5-19); ASPARTATE AMINO TRANSFERASE 28 U/L (14-36); BILIRUBIN,DIRECT 0.1 mg/dL (0.0-0.4); BILIRUBIN,TOTAL 0.3 mg/dL (0.2-1.3); BLOOD UREA NITROGEN 6 mg/dL (7-20); CALCIUM 9.7 mg/dL (8.4-10.2); CARBON DIOXIDE 28 mmol/L (22-30); CHLORIDE 103 mmol/L (98-107); GLUCOSE 103 mg/dL (75-110); POTASSIUM 4.4 mmol/L (3.6-5.0); TOTAL PROTEIN 7.5 g/dL (6.3-8.2)
[2019-05-27 17:41] LABS: INTERNATIONAL RATION (INR) 1.05; PROTHROMBIN TIME 13.7 SEC (11.4-15.4)
[2019-05-27 17:42] LABS: PARTIAL THROMBOPLASTIN TIME 29.4 SEC (23.5-35.8)
[2019-05-27 17:49] LABS: NT PRO BNP 309 pg/mL (<125)
[2019-05-27 17:56] LABS: TROPONIN I < 0.012 ng/mL
[2019-05-27 17:59] LABS: APPEARANCE,URINE CLEAR; BILIRUBIN,URINE NEGATIVE (NEGATIVE); COLOR,URINE STRAW; GLUCOSE, URINE NEGATIVE (NEGATIVE); KETONES,URINE NEGATIVE (NEGATIVE); LEUKOCYTE ESTERASE,URINE LARGE (NEGATIVE); NITRITE,URINE NEGATIVE (NEGATIVE); PROTEIN,URINE NEGATIVE (NEGATIVE); URINE SPECIFIC GRAVITY 1.005; UROBILINOGEN,URINE NEGATIVE mg/dL (<2.0)
--- NOTE | 2019-05-27 18:45 | ER Document Report ---
ED General - General Chief Complaint: Bloody Stools Stated Complaint: DIAHERRA/BLOODY STOOLS Time Seen by Provider: 05/27/19 15:17 Primary Care Provider: VIK HODGSON PA-C [NO LOCAL MD] - Follow up as needed HILLARY LEACH DO [NO LOCAL MD] - Follow up tomorrow Mode of Arrival: Ambulatory Information source: Patient Notes: 38-year-old female with history of lupus presents emergency department with report of 4 bloody bowel movements. She reports the blood was like a light period. Denies abdominal pain. Does complain of right-sided chest pain with cough. She reports she has a history of pericarditis and pleurisy. She reports her provider usually puts her on Lasix for this. She also complains of bilateral leg swelling. She was evaluated here May 23 for bilateral leg swelling and epigastric pain. Patient has a history of lower extremity swelling but usually only in one leg. Patient also has a history of gastric bypass. Patient denies pain at this time. Denies fever vomiting diarrhea. Patient reports her english teacher sent her here for the labs and she was supposed to send him back to her but now they are closed. Patient reports she is feeling fine and would like to be discharged home now. TRAVEL OUTSIDE OF THE [place] IN LAST 30 DAYS: No - HPI Onset: Other Onset/Duration: Sudden, Persistent Associated symptoms: None Exacerbated by: Denies Relieved by: Denies Similar symptoms previously: Yes Recently seen / treated by doctor: Yes - Related Data Allergies/Adverse Reactions: Penicillins Allergy (Verified 05/23/19 13:35) Past Medical History - General Information source: Patient Last Menstrual Period: Current - Social History Smoking Status: Never Smoker Chew tobacco use (# tins/day): No Frequency of alcohol use: None Drug Abuse: None Family History: Reviewed & Not Pertinent, CVA, Hypertension Patient has suicidal ideation: No Patient has homicidal ideation: No - Medical History Medical History: Other - Lupus - Past Medical History Cardiac Medical History: Denies: Hx Congestive Heart Failure, Hx DVT, Hx Heart Attack, Hx Hypercholesterolemia, Hx Hypertension, Hx Pulmonary Embolism Pulmonary Medical History: Denies: Hx Asthma, Hx COPD, Hx Sleep Apnea Neurological Medical History: Denies: Hx Seizures Endocrine Medical History: Denies: Hx Diabetes Mellitus Type 1, Hx Diabetes Mellitus Type 2, Hx Hyperthyroidism, Hx Hypothyroidism Renal/ Medical History: Denies: Hx Peritoneal Dialysis GI Medical History: Reports: Hx Gastroesophageal Reflux Disease - Questionable mild reflux.. Denies: Hx Cirrhosis, Hx Hepatitis Musculoskeletal Medical History: Denies Hx Arthritis Psychiatric Medical History: Reports: Hx Anxiety, Hx Bipolar Disorder, Hx Depression Infectious Medical History: Denies: Hx C-Diff, Hx Hepatitis, Hx MRSA Past Surgical History: Reports: Hx Abdominal Surgery - Gastric bypass, Hx Bowel Surgery - Gastric bypass, Hx Cholecystectomy, Hx Gastric Bypass Surgery, Hx Tonsillectomy, Hx Tubal Ligation - Immunizations Immunizations up to date: Yes Hx Diphtheria, Pertussis, Tetanus Vaccination: Yes Review of Systems - Review of Systems Notes: Review HPI for review of systems., All other systems negative Physical Exam - Vital signs Vitals: Temp Pulse Resp BP Pulse Ox 98.1 F 62 18 129/78 H 98 05/27/19 14:46 05/27/19 14:46 05/27/19 14:46 05/27/19 14:46 05/27/19 14:46 - Notes Notes: PHYSICAL EXAMINATION: GENERAL: Well-appearing and in no acute distress HEAD: Atraumatic, normocephalic. EYES: extraocular movements intact, sclera anicteric, conjunctiva are normal. ENT: nares patent,Moist mucous membranes. NECK: Normal range of motion, supple LUNGS: CTAB and equal. No wheezes rales or rhonchi. HEART: Regular rate and rhythm without murmurs ABDOMEN: Soft, no tenderness. No guarding, no rebound EXTREMITIES: Normal range of motion. NEUROLOGICAL: Cranial nerves grossly intact. PSYCH: Normal mood, normal affect. SKIN: Warm, Dry, normal turgor, no rashes or lesions noted Course - Re-evaluation Re-evalutation: 05/27/19 18:56 I was contacted by the staff because they report patient wants to leave. Patient presents emergency department with complaints of bloody bowel movements right-sided chest pain with cough bilateral leg swelling. Patient has history of lupus also reports history of pericarditis pleurisy. She reports she was sent here by her english teacher for labs and she was supposed to bring the labs back to him but he is closed now. She reports she feels fine. She is ready to go home. A very quick limited physical exam was completed. She declines any further treatment. She was given a copy of the labs by the nurses. The patient has decided not to proceed with further recommended testing or treatment to determine the cause of their symptoms. The risks and alternatives to the recommendations were discussed and the patient was understanding. The patient appears clinically to have the capacity to make this decision. Patient was instructed that he/she could return to the emergency department at any time to complete the testing treatment. 05/27/19 16:35 05/27/19 16:35 MCV 81 fl (80-97) 05/27/19 16:35 MCH 27.3 pg (27.0-33.4) 05/27/19 16:35 MCHC 33.8 g/dL (32.0-36.0) 05/27/19 16:35 RDW 15.4 % (11.5-14.0) H 05/27/19 16:35 Seg Neutrophils % 74.4 % (42-78) 05/27/19 16:35 Chloride 103 mmol/L (98-107) 05/27/19 16:35 Carbon Dioxide 28 mmol/L (22-30) 05/27/19 16:35 Anion Gap 10 (5-19) 05/27/19 16:35 Est GFR ( Amer) > 60 (>60) 05/27/19 16:35 Glucose 103 mg/dL (75-110) 05/27/19 16:35 Calcium 9.7 mg/dL (8.4-10.2) 05/27/19 16:35 Total Bilirubin 0.3 mg/dL (0.2-1.3) 05/27/19 16:35 AST 28 U/L (14-36) 05/27/19 16:35 Alkaline Phosphatase 89 U/L (38-126) 05/27/19 16:35 Total Protein 7.5 g/dL (6.3-8.2) 05/27/19 16:35 Albumin 4.6 g/dL (3.5-5.0) 05/27/19 16:35 Urine Color STRAW 05/27/19 15:50 Urine Appearance CLEAR 05/27/19 15:50 Urine pH 6.0 (5.0-9.0) 05/27/19 15:50 Ur Specific [place] 1.005 05/27/19 15:50 Urine Protein NEGATIVE mg/dL (NEGATIVE) 05/27/19 15:50 Urine Glucose (UA) NEGATIVE mg/dL (NEGATIVE) 05/27/19 15:50 Urine Ketones NEGATIVE mg/dL (NEGATIVE) 05/27/19 15:50 Urine Blood SMALL (NEGATIVE) H 05/27/19 15:50 Urine Nitrite NEGATIVE (NEGATIVE) 05/27/19 15:50 Ur Leukocyte Esterase LARGE (NEGATIVE) H 05/27/19 15:50 Urine WBC (Auto) 8 /HPF 05/27/19 15:50 Urine RBC (Auto) 3 /HPF 05/27/19 15:50 05/27/19 16:35 Troponin I < 0.012 NT-Pro-B Natriuret Pep 309 H Chest X-Ray 05/27/19 15:22 IMPRESSION: 1. No acute pulmonary consolidation. Minimal to very slight b lunting at the right costophrenic angle may represent effusion versus pleural reaction. - Vital Signs Vital signs: Temp Pulse Resp BP Pulse Ox 98.1 F 62 18 129/78 H 98 05/27/19 15:22 05/27/19 15:22 05/27/19 15:22 05/27/19 15:22 05/27/19 15:22 - Laboratory Result Diagrams: 05/27/19 16:35 05/27/19 16:35 Laboratory results interpreted by me: 05/27/19 05/27/19 05/27/19 15:50 16:35 16:35 Hgb 11.9 L Hct 35.1 L RDW 15.4 H BUN 6 L NT-Pro-B Natriuret Pep Urine Blood SMALL H Ur Leukocyte Esterase LARGE H 05/27/19 16:35 Hgb Hct RDW BUN NT-Pro-B Natriuret Pep 309 H Urine Blood Ur Leukocyte Esterase - Diagnostic Test Radiology reviewed: Image reviewed, Reports reviewed Discharge - Discharge Clinical Impression: Bloody stool, bilateral leg swelling Condition: Stable Disposition: AGAINST MEDICAL ADVICE Additional Instructions: *You have been evaluated for bloody stool, bilateral leg swelling, cough, right- sided chest pain You have decided to leave prior to your exam being completed You have been given a copy of all your labs Please follow-up with your english teacher tomorrow with the results Return to the emergency department for worsening condition changes concerns needs difficulty breathing Referrals: VIK HODGSON PA-C [NO LOCAL MD] - Follow up as needed LEACH,HILLARY O, DO [NO LOCAL MD] - Follow up tomorrow
--- NOTE | 2019-05-27 19:16 | EKG REPORT ---
SEVERITY:- NORMAL ECG - SINUS RHYTHM : Confirmed by: Mya Hopper MD 27-May-2019 19:15:07
== END 2019-05-27 18:55 | disposition left against medical advice (07) ==
LOC: ER 14:29
DX: K92.1 Melena (principal); M79.89 Other specified soft tissue disorders; R05 Cough; R07.9 Chest pain, unspecified; Z98.84 Bariatric surgery status; Z88.0 Allergy status to penicillin
CPT/HCPCS: 36415; 71045; 80053; 81001; 83880; 84443; 84484; 85025; 85610; 85730; 93005; 93010; 99284

== ENCOUNTER 2019-05-31 09:16 | Emergency (ER) | payer MEDICAID ==
[2019-05-31] MEDS ORDERED: ASPIRIN 81 MG TABLET, CHEWABLE PO ONE (09:47)
--- NOTE | 2019-05-31 09:51 | ER Document Report ---
ED Medical Screen (RME) - General Chief Complaint: Shortness Of Breath Stated Complaint: SHORT OF BREATH,COUGH Time Seen by Provider: 05/31/19 09:42 Primary Care Provider: CARLA RAMSEY [Primary Care Provider] - Follow up as needed Mode of Arrival: Wheelchair Information source: Patient Notes: Patient presents complaining of chest pain to the right side of the chest that radiates to the shoulder for the past week. Patient states that for the past 4 days she has had shortness of breath. Patient reports cough for the past 4 days as well. Patient states that her primary doctor checked her BNP which was just over 300 and put her on Lasix 20 mg short-term each day. Patient states she was also diagnosed with pericarditis and ACS last week. I have greeted and performed a rapid initial assessment of this patient. A comprehensive ED assessment and evaluation of the patient, analysis of test results and completion of the medical decision making process will be conducted by additional ED providers. TRAVEL OUTSIDE OF THE [place] IN LAST 30 DAYS: No - Related Data Allergies/Adverse Reactions: Penicillins Allergy (Verified 05/23/19 13:35) Home Medications: Abilify. Lamictal. Gabapentin. Methotrexate. Celexa. Cellcept. Lasix. Trazodone. Ambiene. Oxycodone Past Medical History - Social History Chew tobacco use (# tins/day): No Frequency of alcohol use: None Drug Abuse: None - Past Medical History Cardiac Medical History: Denies: Hx Congestive Heart Failure, Hx DVT, Hx Heart Attack, Hx Hypercholes terolemia, Hx Hypertension, Hx Pulmonary Embolism Pulmonary Medical History: Denies: Hx Asthma, Hx COPD, Hx Sleep Apnea Neurological Medical History: Denies: Hx Seizures Endocrine Medical History: Denies: Hx Diabetes Mellitus Type 1, Hx Diabetes Mellitus Type 2, Hx Hyperthyroidism, Hx Hypothyroidism Renal/ Medical History: Denies: Hx Peritoneal Dialysis GI Medical History: Reports: Hx Gastroesophageal Reflux Disease - Questionable mild reflux.. Denies: Hx Cirrhosis, Hx Hepatitis Musculoskeltal Medical History: Denies Hx Arthritis Psychiatric Medical History: Reports: Hx Anxiety, Hx Bipolar Disorder, Hx Depression Infectious Medical History: Denies: Hx C-Diff, Hx Hepatitis, Hx MRSA Past Surgical History: Reports: Hx Abdominal Surgery - Gastric bypass, Hx Bowel Surgery - Gastric bypass, Hx Cholecystectomy, Hx Gastric Bypass Surgery, Hx Tonsillectomy, Hx Tubal Ligation - Immunizations Immunizations up to date: Yes Hx Diphtheria, Pertussis, Tetanus Vaccination: Yes Physical Exam - Vital signs Vitals: Temp Pulse Resp BP Pulse Ox 98.3 F 81 16 105/72 100 05/31/19 09:24 05/31/19 09:24 05/31/19 09:24 05/31/19 09:24 05/31/19 09:24 - Respiratory Respiratory status: No respiratory distress Chest status: Tender Breath sounds: Nonproductive cough Course - Vital Signs Vital signs: Temp Pulse Resp BP Pulse Ox 98.3 F 81 16 105/72 100 05/31/19 09:32 05/31/19 09:32 05/31/19 09:32 05/31/19 09:32 05/31/19 09:32 Doctor's Discharge - Discharge Referrals: LOCALMD,NO [Primary Care Provider] - Follow up as needed
[2019-05-31 10:26] LABS: ABSOLUTE EOSINOPHILS # (AUTO) 0.1 10^3/uL (0.0-0.6); ABSOLUTE LYMPHOCYTES (AUTO) 0.9 10^3/uL (0.5-4.7); ABSOLUTE MONOCYTES (AUTO) 0.5 10^3/uL (0.1-1.4); ABSOLUTE NEUT (AUTO) 2.8 10^3/uL (1.7-8.2); BASOPHILS % (AUTO) 0.7 % (0-2); EOSINOPHILS % (AUTO) 1.2 % (0-6); HEMATOCRIT 39.2 % (36.0-47.0); HEMOGLOBIN 13.3 g/dL (12.0-15.5); LYMPHOCYTES % (AUTO) 21.5 % (13-45); MEAN CORPUSCULAR HEMOGLOBIN 27.2 pg (27.0-33.4); MEAN CORPUSCULAR HGB CONC 33.9 g/dL (32.0-36.0); MEAN CORPUSCULAR VOLUME 80 fl (80-97); MONOCYTES % (AUTO) 11.2 % (3-13); PLATELET COUNT 309 10^3/uL (150-450); RED BLOOD COUNT 4.89 10^6/uL (3.72-5.28); SEGMENTED NEUTROPHILS % (AUTO) 65.4 % (42-78); TOTAL CELLS COUNTED % (AUTO) 100 %; WHITE BLOOD COUNT 4.3 10^3/uL (4.0-10.5)
--- NOTE | 2019-05-31 10:47 | RADIOLOGY REPORT (SQ) ---
EXAM DESCRIPTION: CHEST 2 VIEWS COMPLETED DATE/TIME: 05/31/2019 10:30 am REASON FOR STUDY: cp COMPARISON: 05/27/2019 EXAM PARAMETERS: NUMBER OF VIEWS: two views TECHNIQUE: Digital Frontal and Lateral radiographic views of the chest acquired. RADIATION DOSE: NA LIMITATIONS: none FINDINGS: LUNGS AND PLEURA: No opacities, masses or pneumothorax. No pleural effusion. MEDIASTINUM AND HILAR STRUCTURES: No masses or contour abnormalities. HEART AND VASCULAR STRUCTURES: Heart normal size. No evidence for failure. BONES: No acute findings. HARDWARE: None in the chest. OTHER: No other significant finding. IMPRESSION: NO ACUTE RADIOGRAPHIC FINDING IN THE CHEST. TECHNICAL DOCUMENTATION: JOB ID: [id number] [employer]- All Rights Reserved Reading location - IP/workstation name: [email or web address]
[2019-05-31 10:54] LABS: ALBUMIN 4.6 g/dL (3.5-5.0); ALKALINE PHOSPHATASE 90 U/L (38-126); ANION GAP 12 (5-19); ASPARTATE AMINO TRANSFERASE 29 U/L (14-36); BILIRUBIN,DIRECT 0.2 mg/dL (0.0-0.4); BILIRUBIN,TOTAL 0.5 mg/dL (0.2-1.3); BLOOD UREA NITROGEN 10 mg/dL (7-20); CALCIUM 9.6 mg/dL (8.4-10.2); CARBON DIOXIDE 25 mmol/L (22-30); CHLORIDE 103 mmol/L (98-107); GLUCOSE 84 mg/dL (75-110); POTASSIUM 3.9 mmol/L (3.6-5.0); TOTAL PROTEIN 7.5 g/dL (6.3-8.2)
[2019-05-31 11:00] LABS: NT PRO BNP 76 pg/mL (<125)
[2019-05-31 11:01] LABS: TROPONIN I < 0.012 ng/mL
--- NOTE | 2019-05-31 14:08 | EKG REPORT ---
SEVERITY:- NORMAL ECG - SINUS RHYTHM : Confirmed by: Willian Abarca MD 31-May-2019 14:07:58
[2019-05-31] MEDS ORDERED: OXYCODONE HCL SR 10 MG TABLET PO ONE (14:27)
[2019-05-31] MEDS ORDERED: BENZONATATE 100 MG CAPSULE PO ONE (14:28)
--- NOTE | 2019-05-31 14:39 | ER Document Report ---
ED General - General Chief Complaint: Shortness Of Breath Stated Complaint: SHORT OF BREATH,COUGH Time Seen by Provider: 05/31/19 09:42 Primary Care Provider: DELORIS DE LA ROSA MD [ACTIVE STAFF] - Follow up in 3-5 days LOCALCARLA LEE [NO LOCAL MD] - Follow up as needed Mode of Arrival: Wheelchair Notes: 38-year-old female with lupus on pain management presents to the emergency department with chief complaint of right-sided chest pain that radiates to her shoulder x1 week. Patient states she has had shortness of breath for the past 4 days. Has associated cough. Pain is worse with cough and deep breathing. Patient states that her primary doctor checked her BNP previously, and it was ov er 300, and he put her on a short course of Lasix 20 mg p.o. Patient states that she was also diagnosed with pericarditis by her [employer] mobile last week in the absence of an echocardiogram. Currently patient states that the chest pain is constant, worse with breathing, and she is requesting a dose of oxycodone 10 mg while in the emergency department because she is "due for a dose" and requires it because of her lupus. No nausea, no dyspnea on exertion, patient is not a smoker, no positive family history. TRAVEL OUTSIDE OF THE [place] IN LAST 30 DAYS: No - Related Data Allergies/Adverse Reactions: Penicillins Allergy (Verified 05/23/19 13:35) Home Medications: Abilify. Lamictal. Gabapentin. Methotrexate. Celexa. Cellcept. Lasix. Trazodone. Ambiene. Oxycodone Past Medical History - General Information source: Patient - Social History Smoking Status: Never Smoker Chew tobacco use (# tins/day): No Frequency of alcohol use: None Drug Abuse: None Family History: Reviewed & Not Pertinent, CVA, Hypertension Patient has suicidal ideation: No Patient has homicidal ideation: No - Past Medical History Cardiac Medical History: Denies: Hx Congestive Heart Failure, Hx DVT, Hx Heart Attack, Hx Hypercholesterolemia, Hx Hypertension, Hx Pulmonary Embolism Pulmonary Medical History: Denies: Hx Asthma, Hx COPD, Hx Sleep Apnea Neurological Medical History: Denies: Hx Seizures Endocrine Medical History: Denies: Hx Diabetes Mellitus Type 1, Hx Diabetes Mellitus Type 2, Hx Hyperthyroidism, Hx Hypothyroidism Renal/ Medical History: Denies: Hx Peritoneal Dialysis GI Medical History: Reports: Hx Gastroesophageal Reflux Disease - Questionable mild reflux.. Denies: Hx Cirrhosis, Hx Hepatitis Musculoskeletal Medical History: Denies Hx Arthritis Psychiatric Medical History: Reports: Hx Anxiety, Hx Bipolar Disorder, Hx Depression Infectious Medical History: Denies: Hx C-Diff, Hx Hepatitis, Hx MRSA Past Surgical History: Reports: Hx Abdominal Surgery - Gastric bypass, Hx Bowel Surgery - Gastric bypass, Hx Cholecystectomy, Hx Gastric Bypass Surgery, Hx Tonsillectomy, Hx Tubal Ligation - Immunizations Immunizations up to date: Yes Hx Diphtheria, Pertussis, Tetanus Vaccination: Yes Review of Systems - Review of Systems Constitutional: See HPI EENT: No symptoms reported Cardiovascular: See HPI Respiratory: See HPI Gastrointestinal: No symptoms reported Genitourinary: No symptoms reported Female Genitourinary: No symptoms reported Musculoskeletal: See HPI Skin: No symptoms reported Hematologic/Lymphatic: No symptoms reported Neurological/Psychological: See HPI Physical Exam - Vital signs Vitals: Temp Pulse Resp BP Pulse Ox 98.3 F 81 16 105/72 100 05/31/19 09:24 05/31/19 09:24 05/31/19 09:24 05/31/19 09:24 05/31/19 09:24 - Notes Notes: PHYSICAL EXAMINATION: Reviewed vital signs and charting by RN GENERAL: Alert, interacts well. No acute distress. HEAD: Normocephalic, atraumatic. EYES: Pupils equal and round. Extraocular movements intact. ENT: Oral mucosa moist, tongue midline. NECK: Full range of motion. Trachea midline. LUNGS: Clear to auscultation bilaterally, no wheezes, rales, or rhonchi. No respiratory distress. CHEST: Tenderness to palpation over the anterior chest that is reproducible HEART: Regular rate and rhythm. No murmur ABDOMEN: soft, non-tender. No distention. Bowel sounds present EXTREMITIES: Moves all 4 extremities spontaneously. No edema, No cyanosis. PSYCH: Normal affect, normal mood. SKIN: Warm, dry, normal turgor. No rashes or lesions noted. Course - Re-evaluation Re-evalutation: 05/31/19 14:40 Well-appearing in no acute distress, nontoxic. All initial lab work within normal limits, BNP 76, initial troponin negative. EKG shows a sinus rhythm with a rate of 74, no ST segment elevations or depressions, QTC 426. Repeat troponin ordered 05/31/19 17:41 Repeat troponin was negative. Patient did receive an oxycodone 10 mg p.o. every 4 hours home dose. I reassured patient that she had a negative work-up and gave her information for Dr. De La Rosa. Patient was satisfied with the plan and in agreement. Stable for discharge. - Vital Signs Vital signs: Temp Pulse Resp BP Pulse Ox 98.3 F 81 20 98/62 L 97 05/31/19 09:32 05/31/19 09:32 05/31/19 15:00 05/31/19 14:07 05/31/19 15:00 - Laboratory Result Diagrams: 05/31/19 10:09 05/31/19 10:09 Laboratory results interpreted by me: 05/31/19 10:09 RDW 16.0 H Discharge - Discharge Clinical Impression: Chest pain Qualifiers: Chest pain type: unspecified Qualified Code(s): R07.9 - Chest pain, unspecified Condition: Good Disposition: HOME, SELF-CARE Additional Instructions: You were seen today for chest pain. The exact cause of your pain is unclear. However, based on your cardiac enzyme testing, chest x-ray, and EKG it does not appear that it is from an immediately life-threatening cause at this time. Although your testing here is normal is critical that you follow-up with your primary care physician for continued evaluation of this chest pain and possible stress testing. I recommended you see your physician within the next 24-48 hours to be evaluated for consideration of a stress test. I have also given you information for Dr. De La Rosa, needle punch operator on-call. Please return to emergency department immediately if you have worsening of your chest pain, shortness of breath, vomiting, become unable to exert yourself due to pain or difficulty breathing, you pass out, or have any pain that radiates into your arms, jaw, or back. Please also return if you have any additional symptoms that are concerning to you. Referrals: ROXY,NO [NO LOCAL MD] - Follow up as needed DELORIS DE LA ROSA MD [ACTIVE STAFF] - Follow up in 3-5 days
[2019-05-31 15:42] VITALS: BP 98/62
== END 2019-05-31 15:41 | disposition home or self-care (01) ==
LOC: ER 09:16
DX: R07.9 Chest pain, unspecified (principal); R06.02 Shortness of breath; R05 Cough; F31.9 Bipolar disorder, unspecified; F41.9 Anxiety disorder, unspecified; Z79.899 Other long term (current) drug therapy; Z79.891 Long term (current) use of opiate analgesic; Z98.84 Bariatric surgery status; Z88.0 Allergy status to penicillin
CPT/HCPCS: 93005; 99285; 36415; 84703; 85025; 80053; 84484; 83880; 71046; 93010; J3490 ×2

== ENCOUNTER 2019-06-18 08:47 | Emergency (ER) | payer MEDICAID ==
--- NOTE | 2019-06-18 10:22 | ER Document Report ---
ED Medical Screen (RME) - General Chief Complaint: Nausea/Vomiting/Diarrhea Stated Complaint: VOMITING,ABDOMINAL PAIN,DIARRHEA Time Seen by Provider: 06/18/19 10:16 TRAVEL OUTSIDE OF THE [place] IN LAST 30 DAYS: No - HPI Notes: 06/18/19 10:16 Patient is a 38-year-old female w. pmh of lupus and cholecystectomy who presents complaint of nausea, vomiting, diarrhea, epigastric pain that began 2 days ago. Patient has not been able to keep anything down and feels dehydrated. Last menstrual period was 1 month ago. Daughter has similar symptoms. Denies fever, chest pain, shortness of breath. I have treated and performed a rapid initial assessment of this patient. A comprehensive ED assessment and evaluation of the patient, analysis of test results and completion of medical decision making process will be conducted by additional ED providers. PHYSICAL EXAMINATION: GENERAL: Well-appearing, well-nourished and in no acute distress. A&Ox4. Answers questions appropriately. Abd: Limited exam in triage, but soft, mild epigastric tenderness. - Related Data Allergies/Adverse Reactions: Penicillins Allergy (Verified 06/18/19 09:46) Home Medications: Abilify. Celexa Past Medical History - Social History Chew tobacco use (# tins/day): No Drug Abuse: None - Past Medical History Cardiac Medical History: Denies: Hx Congestive Heart Failure, Hx DVT, Hx Heart Attack, Hx Hypercholesterolemia, Hx Hypertension, Hx Pulmonary Embolism Pulmonary Medical History: Denies: Hx Asthma, Hx COPD, Hx Sleep Apnea Neurological Medical History: Denies: Hx Seizures Endocrine Medical History: Denies: Hx Diabetes Mellitus Type 1, Hx Diabetes Mellitus Type 2, Hx Hyperthyroidism, Hx Hypothyroidism Renal/ Medical History: Denies: Hx Peritoneal Dialysis GI Medical History: Reports: Hx Gastroesophageal Reflux Disease - Questionable mild reflux.. Denies: Hx Cirrhosis, Hx Hepatitis Musculoskeltal Medical History: Denies Hx Arthritis Psychiatric Medical History: Reports: Hx Anxiety, Hx Bipolar Disorder, Hx Depression Infectious Medical History: Denies: Hx C-Diff, Hx Hepatitis, Hx MRSA Past Surgical History: Reports: Hx Abdominal Surgery - Gastric bypass, Hx Bowel Surgery - Gastric bypass, Hx Cholecystectomy, Hx Gastric Bypass Surgery, Hx Tonsillectomy, Hx Tubal Ligation - Immunizations Immunizations up to date: Yes Hx Diphtheria, Pertussis, Tetanus Vaccination: Yes Physical Exam - Vital signs Vitals: Temp Pulse Resp BP Pulse Ox 98.5 F 95 16 98/71 L 100 06/18/19 08:52 06/18/19 08:52 06/18/19 08:52 06/18/19 08:52 06/18/19 08:52 Course - Vital Signs Vital signs: Temp Pulse Resp BP Pulse Ox 98.5 F 95 16 98/71 L 100 06/18/19 08:52 06/18/19 08:52 06/18/19 08:52 06/18/19 08:52 06/18/19 08:52
[2019-06-18] MEDS ORDERED: ONDANSETRON HCL INJ/PF 4 MG/2 ML SDV IV ONE (10:23)
[2019-06-18] MEDS ORDERED: NORMAL SALINE 1000 ML 1,000 ML IV ONE (10:23)
[2019-06-18 11:11] LABS: ABSOLUTE EOSINOPHILS # (AUTO) 0.1 10^3/uL (0.0-0.6); ABSOLUTE LYMPHOCYTES (AUTO) 0.7 10^3/uL (0.5-4.7); ABSOLUTE MONOCYTES (AUTO) 0.3 10^3/uL (0.1-1.4); ABSOLUTE NEUT (AUTO) 3.7 10^3/uL (1.7-8.2); BASOPHILS % (AUTO) 0.6 % (0-2); EOSINOPHILS % (AUTO) 2.3 % (0-6); HEMATOCRIT 37.9 % (36.0-47.0); HEMOGLOBIN 12.5 g/dL (12.0-15.5); LYMPHOCYTES % (AUTO) 14.9 % (13-45); MEAN CORPUSCULAR HEMOGLOBIN 26.6 pg (27.0-33.4); MEAN CORPUSCULAR HGB CONC 32.9 g/dL (32.0-36.0); MEAN CORPUSCULAR VOLUME 81 fl (80-97); PLATELET COUNT 316 10^3/uL (150-450); RED BLOOD COUNT 4.69 10^6/uL (3.72-5.28); RED CELL DISTRIBUTION WIDTH 15.7 % (11.5-14.0); SEGMENTED NEUTROPHILS % (AUTO) 75.2 % (42-78); TOTAL CELLS COUNTED % (AUTO) 100 %; WHITE BLOOD COUNT 4.9 10^3/uL (4.0-10.5)
[2019-06-18 11:28] LABS: APPEARANCE,URINE SLIGHTLY-CLOUDY; BILIRUBIN,URINE NEGATIVE (NEGATIVE); COLOR,URINE YELLOW; GLUCOSE, URINE NEGATIVE (NEGATIVE); KETONES,URINE NEGATIVE (NEGATIVE); PROTEIN,URINE NEGATIVE (NEGATIVE); URINE SPECIFIC GRAVITY 1.015; UROBILINOGEN,URINE NEGATIVE mg/dL (<2.0)
[2019-06-18 11:34] LABS: ALBUMIN 4.3 g/dL (3.5-5.0); ALKALINE PHOSPHATASE 77 U/L (38-126); ANION GAP 11 (5-19); ASPARTATE AMINO TRANSFERASE 23 U/L (14-36); BILIRUBIN,DIRECT 0.2 mg/dL (0.0-0.4); BILIRUBIN,TOTAL 0.4 mg/dL (0.2-1.3); BLOOD UREA NITROGEN 7 mg/dL (7-20); CALCIUM 9.4 mg/dL (8.4-10.2); CARBON DIOXIDE 24 mmol/L (22-30); CHLORIDE 106 mmol/L (98-107); GLUCOSE 76 mg/dL (75-110); POTASSIUM 4.2 mmol/L (3.6-5.0)
[2019-06-18] MEDS ORDERED: METOCLOPRAMIDE HCL INJ/PF 10 MG/2 ML SDV IV ONE (12:51)
--- NOTE | 2019-06-18 13:08 | ER Document Report ---
ED GI/ - General Chief Complaint: Nausea/Vomiting/Diarrhea Stated Complaint: VOMITING,ABDOMINAL PAIN,DIARRHEA Time Seen by Provider: 06/18/19 10:16 Notes: Patient is a 38-year-old female with a history of lupus who presents the emergency department with a chief complaint of nausea, vomiting and diarrhea. Patient reports also having generalized abdominal pain that has lasted for about 2 days. Patient reports she has had greater than 10 episodes of diarrhea within the past 24 hours without blood. Patient reports nausea and upper abdominal pain. Patient has had a cholecystectomy. Patient denies fever. She reports that her daughter at home has a similar symptoms and is currently being evaluated in the emergency department for this. Denies out of recent travel. Patient also complains of body aches. TRAVEL OUTSIDE OF THE [place] IN LAST 30 DAYS: No - Related Data Allergies/Adverse Reactions: Penicillins Allergy (Verified 06/18/19 09:46) Home Medications: Abilify. Celexa Past Medical History - General Information source: Patient - Social History Smoking Status: Never Smoker Chew tobacco use (# tins/day): No Frequency of alcohol use: None Drug Abuse: None Lives with: Family Family History: Reviewed & Not Pertinent, CVA, Hypertension Patient has suicidal ideation: No Patient has homicidal ideation: No - Past Medical History Cardiac Medical History: Reports: None Denies: Hx Congestive Heart Failure, Hx DVT, Hx Heart Attack, Hx Hypercholesterolemia, Hx Hypertension, Hx Pulmonary Embolism Pulmonary Medical History: Reports: None Denies: Hx Asthma, Hx COPD, Hx Sleep Apnea EENT Medical History: Reports: None Neurological Medical History: Reports: None. Denies: Hx Seizures Endocrine Medical History: Reports: None. Denies: Hx Diabetes Mellitus Type 1, Hx Diabetes Mellitus Type 2, Hx Hyperthyroidism, Hx Hypothyroidism Renal/ Medical History: Reports: None. Denies: Hx Peritoneal Dialysis Malignancy Medical History: Reports: None GI Medical History: Reports: Hx Gastroesophageal Reflux Disease - Questionable mild reflux.. Denies: Hx Cirrhosis, Hx Hepatitis Musculoskeletal Medical History: Denies Hx Arthritis, Reports Hx Systemic Lupus Erythematosus Skin Medical History: Reports None Psychiatric Medical History: Reports: Hx Anxiety, Hx Bipolar Disorder, Hx Depression Traumatic Medical History: Reports: None Infectious Medical History: Reports: None. Denies: Hx C-Diff, Hx Hepatitis, Hx MRSA Past Surgical History: Reports: Hx Abdominal Surgery - Gastric bypass, Hx Bowel Surgery - Gastric bypass, Hx Cholecystectomy, Hx Gastric Bypass Surgery, Hx Tonsillectomy, Hx Tubal Ligation - Immunizations Immunizations up to date: Yes Hx Diphtheria, Pertussis, Tetanus Vaccination: Yes Physical Exam - Vital signs Vitals: Temp Pulse Resp BP Pulse Ox 98.5 F 95 16 98/71 L 100 06/18/19 08:52 06/18/19 08:52 06/18/19 08:52 06/18/19 08:52 06/18/19 08:52 Interpretation: Normal - Notes Notes: GENERAL: Well-appearing, well-nourished and in no acute distress. HEAD: Atraumatic, normocephalic. EYES: Pupils equal round and reactive to light, extraocular movements intact, sclera anicteric, conjunctiva are normal. ENT: Nares patent, oropharynx clear without exudates. Moist mucous membranes. NECK: Normal range of motion, supple without lymphadenopathy or JVD. LUNGS: Breath sounds clear to auscultation bilaterally and equal. No wheezes rales or rhonchi. HEART: Regular rate and rhythm without murmurs, rubs or gallops. ABDOMEN: Soft, generalized abdominal pain with palpation, hyperactice bowel sounds. No guarding, no rebound. No masses appreciated. BACK: No cervical, thoracic, lumbar midline tenderness. No saddle anesthesia, normal distal neurovascular exam. NO CVA tenderness. GENITOURINARY: Deferred. EXTREMITIES: Normal range of motion, no pitting or edema. No clubbing or cyanosis. NEUROLOGICAL: Cranial nerves II through XII grossly intact. Normal speech, normal gait. PSYCH: Normal mood, normal affect. SKIN: Warm, Dry, normal turgor, no rashes or lesions noted. Course - Re-evaluation Re-evalutation: 06/18/19 13:07 Patient's labs did not show a significant leukocytosis, evidence of dehydration, alteration electrolytes or kidney function. Patient reports after having the nausea medication IV fluid she feels like she is thirsty would like to attempt something to drink. Will give another dose of IV nausea medication and perform a p.o. challenge. 06/18/19 13:48 Patient influenza testing was negative. Patient reports feeling hungry. I provided crackers and ice water for a p.o. challenge. Patient nontoxic- appearing in no acute distress. 06/18/19 15:32 Prior to discharge patient was able to tolerate ice water. If there was no vomiting or diarrhea has reported. Patient is not hypotensive, tachycardic or febrile at discharge. - Vital Signs Vital signs: Temp Pulse Resp BP Pulse Ox 98.4 F 89 16 101/60 96 06/18/19 14:39 06/18/19 14:39 06/18/19 14:39 06/18/19 14:39 06/18/19 14:39 - Laboratory Result Diagrams: 06/18/19 10:30 06/18/19 10:30 Laboratory results interpreted by me: 06/18/19 06/18/19 10:30 10:30 MCH 26.6 L RDW 15.7 H Leukocyte Esterase Rfl TRACE H 06/18/19 13:07 Patient's blood work does not reveal leukocytosis, anemia, alteration electrolytes or kidney function. Patient has normal kidney function as well as a normal lipase. Patient's urinalysis does not shows ketones leukocytes or nitrites. hCG is negative. Laboratory 06/18/19 06/18/19 06/18/19 10:30 10:30 10:30 WBC 4.9 RBC 4.69 Hgb 12.5 Hct 37.9 MCV 81 MCH 26.6 L MCHC 32.9 RDW 15.7 H Plt Count 316 Lymph % (Auto) 14.9 [place] % (Auto) 7.0 Eos % (Auto) 2.3 Baso % (Auto) 0.6 Absolute Neuts (auto) 3.7 Absolute Lymphs (auto) 0.7 Absolute Monos (auto) 0.3 Absolute Eos (auto) 0.1 Absolute Basos (auto) 0.0 Seg Neutrophils % 75.2 Sodium 140.6 Potassium 4.2 Chloride 106 Carbon Dioxide 24 Anion Gap 11 BUN 7 Creatinine 0.81 Est GFR ( Amer) > 60 Est GFR (MDRD) Non-Af > 60 Glucose 76 Calcium 9.4 Total Bilirubin 0.4 Direct Bilirubin 0.2 Neonat Total Bilirubin Not Reportable Neonat Direct Bilirubin Not Reportable Neonat Indirect Bili Not Reportable AST 23 ALT 16 Alkaline Phosphatase 77 Total Protein 7.0 Albumin 4.3 Lipase 89.9 Urine Color YELLOW Urine Appearance SLIGHTLY-CLOUDY Urine pH 5.0 Ur Specific [place] 1.015 Urine Protein NEGATIVE Urine Glucose (UA) NEGATIVE Urine Ketones NEGATIVE Urine Blood NEGATIVE Urine Nitrite (Reflex) NEGATIVE Urine Bilirubin NEGATIVE Urine Urobilinogen NEGATIVE Leukocyte Esterase Rfl TRACE H Urine RBC (Auto) 1 U Hyaline Cast (Auto) 3 Urine Bacteria (Auto) TRACE Urine WBC (Reflex) 31 Squamous Epi Cells Auto 10 Urine Mucus (Auto) RARE Urine Ascorbic Acid NEGATIVE Urine HCG, Qual NEGATIVE Discharge - Discharge Clinical Impression: Nausea vomiting and diarrhea, Gastroenteritis Condition: Stable Disposition: HOME, SELF-CARE Additional Instructions: *Today was seen in the emergency department for nausea, vomiting and diarrhea. Your blood work is reassuring and did not show significant signs of dehydration. We have adequately given you IV hydration and nausea medication. You have been able to tolerate liquids prior to discharge. You have been given a prescription for anti-nausea medication to use at home if needed. Please initiate a clear liquid diet at home and then advance to a bland diet. Avoid heavy and greasy foods over the next 24 to 48 hours. Nausea or Vomiting, Nonspecific Vomiting (or nausea without vomiting) can be caused by many different problems. Of course, it can mean that something's wrong with the stomach, such as "stomach flu," ulcers, or inflammation. But it can also be a symptom of a problem that has nothing to do with the stomach or intestines. Vomiting is common with severe headaches, earaches, and tonsillitis. We see it with pneumonia or heart attacks. Drugs can cause nausea. Many abdominal problems cause vomiting; for example, gallstones, kidney stones, pancreatitis, and intestinal obstruction (blocked bowels). In most cases, curing the vomiting depends on fixing the problem that caused it. For temporary relief, we may use an anti-nausea medicine. For home use, we can prescribe suppositories, chewable pills, pills that dissolve in the mouth, or liquid anti-nausea drugs. If the vomiting seems to be caused by a problem in the stomach, acid-suppressing drugs may be prescribed as well. It's important to avoid dehydration. Sip clear liquids. Take increasing amounts of fluid over the first 24 hours. Then start small amounts of bland foods (such as dry toast, applesauce, mashed potato). Avoid aspirin, tobacco, and alcohol. Gradually resume your usual diet. If the vomiting worsens, if the problem that's making you vomit worsens, or if there's evidence of bleeding in the stomach (such as black, tarry stool, bloody or black vomit, or lightheadedness), you should return immediately. Call your doctor if you aren't improved in 24 to 36 hours. Diarrhea Diarrhea means frequent, watery stools. There are many causes. Any problem that keeps the intestinal tract from absorbing water from the stool can lead to diarrhea. A sudden new diarrhea problem is usually caused by a virus, food sensitivity, toxic bacteria, or drugs. In this case, we expect the problem to go away soon. Testing is done only if you seem seriously ill from the diarrhea. If you have chronic diarrhea, or diarrhea that keeps coming back, we need to find out why. Chronic diarrhea can be due to inflammation of the bowels such as Crohn's disease or ulcerative colitis, food sensitivity such as intolerance to lactose or wheat protein, irritable bowel syndrome, and other problems. If your diarrhea is a significant problem but it's not clear why you have it, we'll refer you to a specialist for further testing. During an episode of diarrhea, drink small amounts (two to six ounces) of clear liquids (soft drinks, sport drinks, herb teas, broth, etc). Take fluids frequently to prevent dehydration. It's usually not a problem to take mild anti- diarrhea medication such as Kaopectate or Pepto-Bismol. As the diarrhea eases, advance to small amounts of bland food (mashed potato, toast) for 24 hours. Call the physician if blood appears in your vomit or stool, if vomiting lasts longer than 24 hours, if the abdominal pain worsens or becomes localized to one area, if you develop high fever, or if you become lightheaded and weak. Prescriptions: Ondansetron [Zofran Odt 4 mg Tablet] 1 tab PO Q4H PRN #15 tab.rapdis PRN Reason: For Nausea/Vomiting Forms: Return to Work
[2019-06-18 13:41] LABS: A TYPE INFLUENZA AG NEGATIVE (NEGATIVE); B INFLUENZA AG NEGATIVE (NEGATIVE)
[2019-06-18 14:40] VITALS: BP 101/60
== END 2019-06-18 14:40 | disposition home or self-care (01) ==
LOC: ER 08:47
DX: R11.2 Nausea with vomiting, unspecified (principal); R19.7 Diarrhea, unspecified; R10.84 Generalized abdominal pain; Z79.899 Other long term (current) drug therapy; Z88.0 Allergy status to penicillin; Z87.19 Personal history of other diseases of the digestive system; Z98.84 Bariatric surgery status; Z90.49 Acquired absence of other specified parts of digestive tract; Z98.51 Tubal ligation status
CPT/HCPCS: 99284; 96361; 96374; 96375; 36415; 83690; 85025; 81025; 80053; 81001; 87804; J2765; J2405; J7030

== ENCOUNTER 2019-07-08 01:15 | Emergency (ER) | payer MEDICAID ==
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
[2019-07-08 04:10] VITALS: BP 101/75
== END 2019-07-08 03:50 | disposition home or self-care (01) ==
LOC: ER 01:15
DX: S01.112A Laceration without foreign body of left eyelid and periocular area, initial encounter (principal); Y04.0XXA Assault by unarmed brawl or fight, initial encounter; Y92.009 Unspecified place in unspecified non-institutional (private) residence as the place of occurrence of the external cause; R51 Headache; F41.9 Anxiety disorder, unspecified; F31.9 Bipolar disorder, unspecified; Z79.82 Long term (current) use of aspirin; Z88.0 Allergy status to penicillin; Z79.891 Long term (current) use of opiate analgesic; Z79.899 Other long term (current) drug therapy; Z98.84 Bariatric surgery status
CPT/HCPCS: 99282

== ENCOUNTER 2019-09-22 09:25 | Emergency (ER) | payer MEDICAID ==
[2019-09-22 09:58] LABS: ABSOLUTE EOSINOPHILS # (AUTO) 0.1 10^3/uL (0.0-0.6); ABSOLUTE LYMPHOCYTES (AUTO) 0.8 10^3/uL (0.5-4.7); ABSOLUTE MONOCYTES (AUTO) 0.4 10^3/uL (0.1-1.4); ABSOLUTE NEUT (AUTO) 3.9 10^3/uL (1.7-8.2); BASOPHILS % (AUTO) 0.3 % (0-2); EOSINOPHILS % (AUTO) 2.3 % (0-6); HEMATOCRIT 38.6 % (36.0-47.0); HEMOGLOBIN 13.8 g/dL (12.0-15.5); LYMPHOCYTES % (AUTO) 16.1 % (13-45); MEAN CORPUSCULAR HEMOGLOBIN 30.9 pg (27.0-33.4); MEAN CORPUSCULAR HGB CONC 35.6 g/dL (32.0-36.0); MEAN CORPUSCULAR VOLUME 87 fl (80-97); MONOCYTES % (AUTO) 7.1 % (3-13); PLATELET COUNT 289 10^3/uL (150-450); RED BLOOD COUNT 4.45 10^6/uL (3.72-5.28); RED CELL DISTRIBUTION WIDTH 16.2 % (11.5-14.0); SEGMENTED NEUTROPHILS % (AUTO) 74.2 % (42-78); TOTAL CELLS COUNTED % (AUTO) 100 %; WHITE BLOOD COUNT 5.2 10^3/uL (4.0-10.5)
[2019-09-22 10:20] LABS: ALBUMIN 4.2 g/dL (3.5-5.0); ALKALINE PHOSPHATASE 70 U/L (38-126); ANION GAP 5 (5-19); ASPARTATE AMINO TRANSFERASE 29 U/L (14-36); BILIRUBIN,DIRECT 0.1 mg/dL (0.0-0.4); BILIRUBIN,TOTAL 0.5 mg/dL (0.2-1.3); BLOOD UREA NITROGEN 11 mg/dL (7-20); CALCIUM 9.2 mg/dL (8.4-10.2); CARBON DIOXIDE 29 mmol/L (22-30); CHLORIDE 104 mmol/L (98-107); GLUCOSE 91 mg/dL (75-110); POTASSIUM 5.1 mmol/L (3.6-5.0); TOTAL PROTEIN 6.9 g/dL (6.3-8.2)
--- NOTE | 2019-09-22 10:36 | RADIOLOGY REPORT (SQ) ---
EXAM DESCRIPTION: CHEST SINGLE VIEW IMAGES COMPLETED DATE/TIME: 09/22/2019 10:23 am REASON FOR STUDY: chest pain COMPARISON: 05/31/2019 EXAM PARAMETERS: NUMBER OF VIEWS: One view. TECHNIQUE: Single frontal radiographic view of the chest acquired. RADIATION DOSE: NA LIMITATIONS: None. FINDINGS: LUNGS AND PLEURA: No opacities, masses or pneumothorax. No pleural effusion. MEDIASTINUM AND HILAR STRUCTURES: No masses. Contour normal. HEART AND VASCULAR STRUCTURES: Heart normal in size. Normal vasculature. BONES: No acute findings. HARDWARE: None in the chest. OTHER: No other significant finding. IMPRESSION: NO ACUTE RADIOGRAPHIC FINDING IN THE CHEST. TECHNICAL DOCUMENTATION: JOB ID: [id number] 2010 [employer]- All Rights Reserved Reading location - IP/workstation name: [email or web address]
[2019-09-22] MEDS ORDERED: KETOROLAC TROMETHAMINE INJ/PF 30 MG/1 ML SDV IV ONE (10:54)
--- NOTE | 2019-09-22 11:01 | ER Document Report ---
HPI - HPI Time Seen by Provider: 09/22/19 09:29 Pain Level: 4 Notes: 38-year-old female patient presenting to the emergency department complaints of chest pain and shortness of breath. She reports pain in the right upper chest wall that radiates to the right shoulder and around to the right posterior ribs. She states this started while she was doing yoga. She reports that she usually has shortness of breath at her baseline but reports increased shortness of mary jane th over the last 2 days. Chest pain started 2 days ago. Denies any other symptoms. - CARDIOVASCULAR Cardiovascular: REPORTS: Chest pain - RESPIRATORY Respiratory: REPORTS: Trouble Breathing - REPRODUCTIVE Reproductive: DENIES: : Past Medical History - General Information source: Patient - Social History Smoking Status: Never Smoker Frequency of alcohol use: None Drug Abuse: None Family History: Reviewed & Not Pertinent, CVA, Hypertension Patient has suicidal ideation: No Patient has homicidal ideation: No - Past Medical History Cardiac Medical History: Denies: Hx Congestive Heart Failure, Hx DVT, Hx Heart Attack, Hx Hypercholesterolemia, Hx Hypertension, Hx Pulmonary Embolism Pulmonary Medical History: Denies: Hx Asthma, Hx COPD, Hx Sleep Apnea Neurological Medical History: Denies: Hx Seizures Endocrine Medical History: Denies: Hx Diabetes Mellitus Type 1, Hx Diabetes Mellitus Type 2, Hx Hyperthyroidism, Hx Hypothyroidism Renal/ Medical History: Denies: Hx Peritoneal Dialysis GI Medical History: Reports: Hx Gastroesophageal Reflux Disease - Questionable mild reflux.. Denies: Hx Cirrhosis, Hx Hepatitis Musculoskeletal Medical History: Denies Hx Arthritis, Reports Hx Systemic Lupus Erythematosus Psychiatric Medical History: Reports: Hx Anxiety, Hx Bipolar Disorder, Hx Depression Infectious Medical History: Denies: Hx C-Diff, Hx Hepatitis, Hx MRSA Past Surgical History: Reports: Hx Abdominal Surgery - Gastric bypass, Hx Bowel Surgery - Gastric bypass, Hx Cholecystectomy, Hx Gastric Bypass Surgery, Hx Tonsillectomy, Hx Tubal Ligation - Immunizations Immunizations up to date: Yes Hx Diphtheria, Pertussis, Tetanus Vaccination: Yes Vertical Provider Document - CONSTITUTIONAL Notes: PHYSICAL EXAMINATION: GENERAL: Well-appearing, well-nourished and in no acute distress. HEAD: Atraumatic, normocephalic. EYES: Pupils equal round and reactive to light, extraocular movements intact, conjunctiva are normal. ENT: Nares patent, oropharynx clear without exudates. Moist mucous membranes. NECK: Normal range of motion, supple without lymphadenopathy LUNGS: Breath sounds clear to auscultation bilaterally and equal. No wheezes rales or rhonchi. HEART: Regular rate and rhythm without murmurs ABDOMEN: Soft, nontender, nondistended abdomen. No guarding, no rebound. No masses appreciated. Female : deferred Musculoskeletal: Normal range of motion, no pitting or edema. No cyanosis. NEUROLOGICAL: Cranial nerves grossly intact. Normal speech, normal gait. Normal sensory, motor exams PSYCH: Normal mood, normal affect. SKIN: Warm, Dry, normal turgor, no rashes or lesions noted. - INFECTION CONTROL TRAVEL OUTSIDE OF THE [place] IN LAST 30 DAYS: No Course - Re-evaluation Re-evalutation: Work-up today has been unremarkable. Troponin negative. D-dimer negative. EKG shows a sinus rhythm, normal rate, normal rhythm, normal axis, no ST segment elevations or depressions to suggest ischemia. Chest x-ray is unremarkable. Chest pain is reproducible with palpation. Patient will be discharged home at this time with ED return precautions. Patient is in agreements with plan of care. - Vital Signs Vital signs: Temp Pulse Resp BP Pulse Ox 98.0 F 79 20 106/66 100 09/22/19 09:56 09/22/19 09:56 09/22/19 09:56 09/22/19 09:56 09/22/19 09:56 - Laboratory Result Diagrams: 09/22/19 09:39 09/22/19 09:39 Laboratory results interpreted by me: 09/22/19 09/22/19 09:39 09:39 RDW 16.2 H Potassium 5.1 H Discharge - Discharge Clinical Impression: Chest pain Qualifiers: Chest pain type: unspecified Qualified Code(s): R07.9 - Chest pain, unspecified Condition: Stable Disposition: HOME, SELF-CARE Additional Instructions: Your work-up today was reassuring. Your vital signs are within normal limits. Your chest x-ray was unremarkable without any evidence of pneumonia. All of your lab work was normal. We checked a d-dimer to ensure that you are not h aving a blood clot in your lungs, we checked your troponin to ensure that this is not a heart attack and we also checked basic labs such as chemistries and complete blood count. I do believe your pain is being caused by a musculoskeletal source since it hurts worse with palpation or pressing on the area. Please try taking the muscle relaxer as well as continue taking your pain medication as prescribed by your pain management doctor. Return to the emergency department with any worsening shortness of breath, turning blue around the lips or any other life-threatening concern. Prescriptions: Methocarbamol [Robaxin 750 mg Tablet] 750 mg PO Q4 #30 tablet Forms: Return to Work
[2019-09-22 11:09] VITALS: BP 108/70
--- NOTE | 2019-09-23 09:37 | EKG REPORT ---
SEVERITY:- NORMAL ECG - SINUS RHYTHM : Confirmed by: Gretel Major 23-Sep-2019 09:36:34
== END 2019-09-22 11:09 | disposition home or self-care (01) ==
LOC: ER 09:25
DX: R07.9 Chest pain, unspecified (principal); R06.02 Shortness of breath; R07.89 Other chest pain; M25.511 Pain in right shoulder; R07.81 Pleurodynia
CPT/HCPCS: 93005; 99285; 96374; 36415; 85025; 80053; 84484; 85379; 71045; 93010; J1885

== ENCOUNTER 2019-10-18 15:59 | Emergency (ER) | payer MEDICAID ==
--- NOTE | 2019-10-18 17:40 | RADIOLOGY REPORT (SQ) ---
EXAM DESCRIPTION: ACUTE ABDOMEN SERIES IMAGES COMPLETED DATE/TIME: 10/18/2019 4:18 pm REASON FOR STUDY: N,V,D COMPARISON: Chest radiograph, 09/22/2019 NUMBER OF VIEWS: Three views. TECHNIQUE: Frontal chest, supine abdomen and upright/decubitus abdomen radiographic images acquired. LIMITATIONS: None. FINDINGS: CHEST: Lungs clear of infiltrates. FREE AIR: None. No abnormal gas collections. BOWEL GAS PATTERN: Nonspecific air-fluid levels on upright view without focally dilated loops of darlin l. There is gas and stool in the colon and rectum. CALCIFICATIONS: No suspicious calcifications. HARDWARE: Intrauterine device is noted in the pelvis. SOFT TISSUES: No gross mass or suggestion of organomegaly. BONES: No acute fracture. No worrisome bone lesions. OTHER: No other significant finding. IMPRESSION: Nonspecific bowel gas pattern. No frankly dilated loops of bowel. Finding could be see n with ileus. TECHNICAL DOCUMENTATION: JOB ID: [id number] 2010 [employer]- All Rights Reserved Reading location - IP/workstation name: [email or web address]
[2019-10-18 17:43] LABS: ABSOLUTE EOSINOPHILS # (AUTO) 0.2 10^3/uL (0.0-0.6); ABSOLUTE LYMPHOCYTES (AUTO) 1.2 10^3/uL (0.5-4.7); ABSOLUTE MONOCYTES (AUTO) 0.6 10^3/uL (0.1-1.4); ABSOLUTE NEUT (AUTO) 4.1 10^3/uL (1.7-8.2); BASOPHILS % (AUTO) 0.5 % (0-2); EOSINOPHILS % (AUTO) 2.8 % (0-6); HEMATOCRIT 36.2 % (36.0-47.0); HEMOGLOBIN 12.7 g/dL (12.0-15.5); LYMPHOCYTES % (AUTO) 20.2 % (13-45); MEAN CORPUSCULAR HEMOGLOBIN 31.3 pg (27.0-33.4); MEAN CORPUSCULAR HGB CONC 35.1 g/dL (32.0-36.0); MEAN CORPUSCULAR VOLUME 89 fl (80-97); MONOCYTES % (AUTO) 9.1 % (3-13); PLATELET COUNT 226 10^3/uL (150-450); RED BLOOD COUNT 4.06 10^6/uL (3.72-5.28); RED CELL DISTRIBUTION WIDTH 14.8 % (11.5-14.0); SEGMENTED NEUTROPHILS % (AUTO) 67.4 % (42-78); TOTAL CELLS COUNTED % (AUTO) 100 %; WHITE BLOOD COUNT 6.1 10^3/uL (4.0-10.5)
[2019-10-18 17:52] LABS: APPEARANCE,URINE SLIGHTLY-CLOUDY; BILIRUBIN,URINE NEGATIVE (NEGATIVE); COLOR,URINE YELLOW; GLUCOSE, URINE NEGATIVE (NEGATIVE); KETONES,URINE NEGATIVE (NEGATIVE); LEUKOCYTE ESTERASE,URINE SMALL (NEGATIVE); NITRITE,URINE NEGATIVE (NEGATIVE); PROTEIN,URINE NEGATIVE (NEGATIVE); UROBILINOGEN,URINE NEGATIVE mg/dL (<2.0)
[2019-10-18 18:06] LABS: ALBUMIN 3.9 g/dL (3.5-5.0); ALKALINE PHOSPHATASE 87 U/L (38-126); ANION GAP 6 (5-19); ASPARTATE AMINO TRANSFERASE 31 U/L (14-36); BILIRUBIN,TOTAL 0.4 mg/dL (0.2-1.3); BLOOD UREA NITROGEN 6 mg/dL (7-20); CARBON DIOXIDE 33 mmol/L (22-30); CHLORIDE 96 mmol/L (98-107); CREATINE KINASE 89 U/L (30-135); GLUCOSE 86 mg/dL (75-110); POTASSIUM 4.1 mmol/L (3.6-5.0); TOTAL PROTEIN 6.1 g/dL (6.3-8.2)
--- NOTE | 2019-10-18 18:39 | ER Document Report ---
Entered by ERLINDA HALE SCRIBE 10/18/19 [id number] Acting as scribe for:BROOKLYN EDWARDS MD ED General - General Chief Complaint: Trouble Walking Stated Complaint: LOSS OF BALANCE Time Seen by Provider: 10/18/19 16:25 Primary Care Provider: SETH GALVIN DO [Primary Care Provider] - Follow up as needed Mode of Arrival: Ambulatory Information source: Patient Notes: This 39 year old female patient presents to the emergency department today with complaints of multiple unrelated symptoms symptoms including a "10 pound weight gain over the last 6 days, nausea, vomiting, diarrhea, urinary incontinence, loss of coordination, walking into [place], headache, insomnia, and aspiration while sleeping". She also reports difficulty sleeping, but reports she is sound asleep with her Ambien and trazodone. She states she wakes up choking and thinks this is due to aspiration. Aspiration does not occur during the day. She last had diarrhea yesterday. She states she was having it 4-5 times/day. The incontinence she describes consisted of 2 episodes, once yesterday, and once today. She does not describe any loss of control of her urine at any other time. Patient was tested for COVID on October 07 which came back negative. Patient states her symptoms at that time were fevers, nausea, slight cough, and sore throat. She was started on a z-lorri for this and is on day 4 of the 5 day course. Patient states she used a tele-doc feature today and they were concerned about her "neurological symptoms" so she is here for a "neurological evaluation". The medication list provided by the nurse includes Lamictal, gabapentin, Celexa, trazodone, Ambien, Lasix, CellCept, Plaquenil, methotrexate, aspirin, potassium, propranolol, and oxycodone(the oxycodone is 10 mg 4 times daily on a chronic basis). TRAVEL OUTSIDE OF THE [place] IN LAST 30 DAYS: No - Related Data Allergies/Adverse Reactions: Penicillins Allergy (Verified 09/22/19 09:45) Home Medications: limictal, gabapentin, celexa, trazdone, ambien, cellcept, methotrexate, paquenil, benlysta, lasix, aspirin, potassium, propanolol, oxycodone Past Medical History - General Information source: Patient - Social History Smoking Status: Never Smoker Cigarette use (# per day): No Chew tobacco use (# tins/day): No Smoking Education Provided: No Frequency of alcohol use: None Drug Abuse: None Lives with: Family Family History: Reviewed & Not Pertinent, CVA, Hypertension Patient has suicidal ideation: No Patient has homicidal ideation: No - Past Medical History Cardiac Medical History: Reports: Hx Congestive Heart Failure - resolved, per patient. See ER charts on May 23,, & --2018. GI Medical History: Reports: Hx Gastroesophageal Reflux Disease - Questionable mild reflux. Musculoskeletal Medical History: Reports Hx Systemic Lupus Erythematosus Psychiatric Medical History: Reports: Hx Anxiety, Hx Bipolar Disorder, Hx Depression Past Surgical History: Reports: Hx Cholecystectomy - 2008, Hx Gastric Bypass Surgery - 2004 with a Daniel-en-Y, Hx Tonsillectomy, Hx Tubal Ligation - Immunizations Immunizations up to date: Yes Hx Diphtheria, Pertussis, Tetanus Vaccination: Yes Review of Systems - Review of Systems Constitutional: No symptoms reported, Weight gain EENT: See HPI, Blurred vision Cardiovascular: See HPI Respiratory: See HPI - Coughing from bronchitis, and choking from aspiration Gastrointestinal: See HPI, Diarrhea, Nausea, Vomiting Genitourinary: See HPI, Incontinence Female Genitourinary: No symptoms reported Musculoskeletal: No symptoms reported Skin: No symptoms reported Hematologic/Lymphatic: No symptoms reported Neurological/Psychological: See HPI, Other - Coordination issues -: Yes All other systems reviewed and negative Physical Exam - Vital signs Vitals: Temp Pulse Resp BP Pulse Ox 98.9 F 83 16 112/69 98 10/18/19 16:13 10/18/19 16:13 10/18/19 16:13 10/18/19 16:13 10/18/19 16:13 - Notes Notes: Physical Exam: General: Alert, appears well. HEENT: Normocephalic. Atraumatic. PERRL. Extraocular movements intact. Oropharynx clear. Neck: Supple. Non-tender. Respiratory: No respiratory distress. Clear and equal breath sounds bilaterally. Cardiovascular: Regular rate and rhythm. Abdominal: Normal Inspection. Non-tender. No distension. Bowel sounds so a lot of fluid and gas sounds that would suggest an ileus. Back: No gross abnormalities. Extremities: Moves all four extremities. Upper extremities: Normal inspection. Normal ROM. Lower extremities: Normal inspection. No edema. Normal ROM. Neurological: Normal cognition. AAOx4. Normal speech. To demonstrate her lack of coordination, she puts both arms out straight in front of her and slowly brings the hands together without tremor, upward or downward drift, or any sign of a coordination issue. She states that she is not trying to do this, that the hands coming together is beyond her control. Psychological: Does not seem to be particularly upset or concerned about all of these severe symptoms that she reports. Skin: Warm. Dry. Normal color. Course - Re-evaluation Re-evalutation: 10/18/19 18:41 The acute abdominal series shows a bowel gas pattern that could suggest a small bowel ileus with multiple air-fluid levels. The patient's BUN is 6, creatinine is 0.67, urine specific gravity is 1.010 The white blood cell count is normal. 10/18/19 19:21 I did review her lab findings which show a very low BUN and creatinine and urine specific gravity. Acute abdominal series that suggests a small bowel ileus. When I tried to reassure the patient and discharge her, she is wanting an MRI of the brain done. She states her primary care provider via telemedicine was very concerned about her arm drift and her other symptoms and wanted her to get an emergency MRI and neurological evaluation. I told her that I did not see any coordination difficulties at this time that would merit an emergency MRI. I also informed her that we do not have neurology coverage at this facility. She asked about going to [facility] to get her studies done. I told her she could do that or would be better to contact her primary care provider and see him in the office tomorrow and then let him schedule her studies as an outpatient. - Vital Signs Vital signs: Temp Pulse Resp BP Pulse Ox 98.6 F 80 18 108/70 98 10/18/19 19:10 10/18/19 19:10 10/18/19 19:10 10/18/19 19:10 10/18/19 19:10 - Laboratory Result Diagrams: 10/18/19 17:34 10/18/19 17:34 Laboratory results interpreted by me: 10/18/19 10/18/19 10/18/19 17:34 17:34 17:34 RDW 14.8 H Sodium 135.0 L Chloride 96 L Carbon Dioxide 33 H BUN 6 L ALT 39 H Total Protein 6.1 L Ur Leukocyte Esterase SMALL H - Diagnostic Test Radiology reviewed: Image reviewed, Reports reviewed - The acute abdominal series has a bowel gas pattern that could suggest a small bowel ileus. Discharge - Discharge Clinical Impression: Nausea, vomiting and diarrhea, Small bowel ileus, Subjective coordination difficulties Headache Qualifiers: Headache type: unspecified Headache chronicity pattern: unspecified pattern Intractability: not intractable Qualified Code(s): R51 - Headache Condition: Stable Disposition: HOME, SELF-CARE Additional Instructions: Continue your regular medications. Take the Zofran as dispensed for nauseousness as needed. Follow-up with Dr. Galvin in the office tomorrow for further evaluation of your symptoms. RETURN TO THE EMERGENCY ROOM IF ANY NEW OR WORSENING SYMPTOMS. Referrals: SETH GALVIN, DO [Primary Care Provider] - Follow up as needed I personally performed the services described in the documentation, reviewed and edited the documentation which was dictated to the scribe in my presence, and it accurately records my words and actions.
[2019-10-18] MEDS ORDERED: ONDANSETRON ODT 4 MG TAB (6 TAB/ER DISP) PO PRN (19:02)
[2019-10-18 19:14] VITALS: BP 108/70
== END 2019-10-18 19:14 | disposition home or self-care (01) ==
LOC: ER 15:59
DX: R11.2 Nausea with vomiting, unspecified (principal); R19.7 Diarrhea, unspecified; R26.2 Difficulty in walking, not elsewhere classified; K56.7 Ileus, unspecified; R32 Unspecified urinary incontinence; R51 Headache; G47.00 Insomnia, unspecified; Z79.899 Other long term (current) drug therapy; Z79.82 Long term (current) use of aspirin; I50.9 Heart failure, unspecified
CPT/HCPCS: 36415; 74022; 80053; 81001; 82550; 85025; 99284

== ENCOUNTER → 2020-02-15 | Outpatient (CLI) | payer MEDICAID ==
[2020-02-15 11:56] LABS: ABSOLUTE EOSINOPHILS # (AUTO) 0.1 10^3/uL (0.0-0.6); ABSOLUTE LYMPHOCYTES (AUTO) 0.8 10^3/uL (0.5-4.7); ABSOLUTE MONOCYTES (AUTO) 0.2 10^3/uL (0.1-1.4); ABSOLUTE NEUT (AUTO) 2.3 10^3/uL (1.7-8.2); BASOPHILS % (AUTO) 0.5 % (0-2); EOSINOPHILS % (AUTO) 3.4 % (0-6); HEMATOCRIT 38.2 % (36.0-47.0); HEMOGLOBIN 13.2 g/dL (12.0-15.5); LYMPHOCYTES % (AUTO) 23.1 % (13-45); MEAN CORPUSCULAR HEMOGLOBIN 29.9 pg (27.0-33.4); MEAN CORPUSCULAR HGB CONC 34.6 g/dL (32.0-36.0); MEAN CORPUSCULAR VOLUME 87 fl (80-97); MONOCYTES % (AUTO) 7.2 % (3-13); PLATELET COUNT 229 10^3/uL (150-450); RED BLOOD COUNT 4.42 10^6/uL (3.72-5.28); RED CELL DISTRIBUTION WIDTH 13.7 % (11.5-14.0); SEGMENTED NEUTROPHILS % (AUTO) 65.8 % (42-78); TOTAL CELLS COUNTED % (AUTO) 100 %; WHITE BLOOD COUNT 3.5 10^3/uL (4.0-10.5)
[2020-02-15 12:21] LABS: APPEARANCE,URINE SLIGHTLY-CLOUDY; BILIRUBIN,URINE NEGATIVE (NEGATIVE); COLOR,URINE YELLOW; GLUCOSE, URINE NEGATIVE (NEGATIVE); KETONES,URINE NEGATIVE (NEGATIVE); LEUKOCYTE ESTERASE,URINE NEGATIVE (NEGATIVE); NITRITE,URINE NEGATIVE (NEGATIVE); PROTEIN,URINE NEGATIVE (NEGATIVE); URINE SPECIFIC GRAVITY 1.023
[2020-02-15 12:23] LABS: ALBUMIN 3.9 g/dL (3.5-5.0); ALKALINE PHOSPHATASE 92 U/L (38-126); ANION GAP 8 (5-19); ASPARTATE AMINO TRANSFERASE 40 U/L (14-36); BILIRUBIN,DIRECT 0.3 mg/dL (0.0-0.4); BILIRUBIN,TOTAL 0.5 mg/dL (0.2-1.3); BLOOD UREA NITROGEN 6 mg/dL (7-20); C-REACTIVE PROTEIN 5.3 mg/L (<10.0); CALCIUM 8.8 mg/dL (8.4-10.2); CARBON DIOXIDE 28 mmol/L (22-30); CHLORIDE 104 mmol/L (98-107); GLUCOSE 85 mg/dL (75-110); POTASSIUM 4.3 mmol/L (3.6-5.0); TOTAL PROTEIN 6.1 g/dL (6.3-8.2)
[2020-02-15 12:48] LABS: ERYTHROCYTE SEDIMENTATION RATE 7 mm/hr (0-20)
[2020-02-16 03:36] LABS: COMPLEMENT C4 23 mg/dL (14-44)
[2020-02-16 11:56] LABS: COMPLEMENT C3 95 mg/dL (82-167)
== END ==
LOC: OD 10:35
PROVIDERS: ATTEND Nurse Practitioner Family
DX: R00.0 Tachycardia, unspecified (principal); R51 Headache; R53.83 Other fatigue; R19.7 Diarrhea, unspecified
CPT/HCPCS: 36415; 80053; 81001; 85025; 85652; 86140; 86160

== ENCOUNTER 2020-02-17 09:36 | Emergency (ER) | payer MEDICAID ==
--- NOTE | 2020-02-17 10:13 | EKG REPORT ---
SEVERITY:- NORMAL ECG - SINUS RHYTHM : Confirmed by: Mya Hopper MD 17-Feb-2020 10:13:28
[2020-02-17 10:30] LABS: ABSOLUTE EOSINOPHILS # (AUTO) 0.2 10^3/uL (0.0-0.6); ABSOLUTE MONOCYTES (AUTO) 0.3 10^3/uL (0.1-1.4); ABSOLUTE NEUT (AUTO) 2.9 10^3/uL (1.7-8.2); BASOPHILS % (AUTO) 0.4 % (0-2); EOSINOPHILS % (AUTO) 3.8 % (0-6); HEMATOCRIT 39.8 % (36.0-47.0); LYMPHOCYTES % (AUTO) 22.3 % (13-45); MEAN CORPUSCULAR HEMOGLOBIN 30.2 pg (27.0-33.4); MEAN CORPUSCULAR HGB CONC 35.2 g/dL (32.0-36.0); MEAN CORPUSCULAR VOLUME 86 fl (80-97); MONOCYTES % (AUTO) 7.4 % (3-13); PLATELET COUNT 251 10^3/uL (150-450); RED BLOOD COUNT 4.64 10^6/uL (3.72-5.28); RED CELL DISTRIBUTION WIDTH 13.5 % (11.5-14.0); SEGMENTED NEUTROPHILS % (AUTO) 66.1 % (42-78); TOTAL CELLS COUNTED % (AUTO) 100 %; WHITE BLOOD COUNT 4.4 10^3/uL (4.0-10.5)
--- NOTE | 2020-02-17 10:49 | RADIOLOGY REPORT (SQ) ---
EXAM DESCRIPTION: CHEST SINGLE VIEW IMAGES COMPLETED DATE/TIME: 02/17/2020 10:32 am REASON FOR STUDY: chest pain COMPARISON: 09/22/2019 EXAM PARAMETERS: NUMBER OF VIEWS: One view. TECHNIQUE: Single frontal radiographic view of the chest acquired. RADIATION DOSE: NA LIMITATIONS: None. FINDINGS: LUNGS AND PLEURA: No opacities, masses or pneumothorax. No pleural effusion. MEDIASTINUM AND HILAR STRUCTURES: No masses. Contour normal. HEART AND VASCULAR STRUCTURES: Heart normal in size. Normal vasculature. BONES: No acute findings. HARDWARE: None in the chest. OTHER: No other significant finding. IMPRESSION: NO ACUTE RADIOGRAPHIC FINDING IN THE CHEST. TECHNICAL DOCUMENTATION: JOB ID: [id number] 2010 [employer]- All Rights Reserved Reading location - IP/workstation name: [email or web address]
[2020-02-17 10:50] LABS: ALBUMIN 4.1 g/dL (3.5-5.0); ALKALINE PHOSPHATASE 89 U/L (38-126); ANION GAP 6 (5-19); ASPARTATE AMINO TRANSFERASE 35 U/L (14-36); BILIRUBIN,DIRECT 0.3 mg/dL (0.0-0.4); BILIRUBIN,TOTAL 0.5 mg/dL (0.2-1.3); BLOOD UREA NITROGEN 5 mg/dL (7-20); CALCIUM 9.3 mg/dL (8.4-10.2); CARBON DIOXIDE 28 mmol/L (22-30); CHLORIDE 106 mmol/L (98-107); CREATINE KINASE 137 U/L (30-135); GLUCOSE 88 mg/dL (75-110); POTASSIUM 4.5 mmol/L (3.6-5.0); TOTAL PROTEIN 6.5 g/dL (6.3-8.2)
[2020-02-17 10:57] LABS: CREATINE KINASE MB 1.36 ng/mL (<4.55)
[2020-02-17] MEDS ORDERED: LORAZEPAM INJ 2 MG/1 ML VIAL IV ONE (10:59)
[2020-02-17] MEDS ORDERED: NORMAL SALINE 1000 ML 1,000 ML IV ONE (11:00)
--- NOTE | 2020-02-17 11:07 | ER Document Report ---
ED General - General Chief Complaint: Chest Pain Stated Complaint: CHEST PAIN Time Seen by Provider: 02/17/20 10:03 Primary Care Provider: MARTINA ORDONEZ NP [Primary Care Provider] - Follow up as needed TRAVEL OUTSIDE OF THE [place] IN LAST 30 DAYS: No - HPI Notes: Chief complaint: Headache, chest pain, nausea, muscular cramping and anxiety History of present illness: 39-year-old female with history of SLE, migraine headaches and past history of pericarditis presents via EMS with multiple symptoms as noted above. Patient says she started taking a prep last night for colonoscopy which is scheduled for tomorrow and that she took. She vomited several times and then developed "dry heaves". She awakened this morning with 1 of her typical migraine headaches and says that she has had muscular cramping and some intermittent sharp pains in her chest and notes that she had similar symptoms in the past when she had pericarditis. She was concerned about this and called EMS. Patient reports her primary physician obtain an outpatient MRI of the brain with contrast about 3 months ago and this was reported as normal. Patient has no known history of coronary disease. She has no known history of thromboembolic disease. Patient states that she was told which she had "congestive heart failure" several years ago when she had a lupus flare. She says she also had pericardi tis at that time. Her chest discomfort is described as sharp, fleeting and localized to the right side without radiation. She is not diabetic. She is not hypertensive. Her family history is negative for CAD. She has no history of hyperlipidemia. She denies abuse cocaine. HEART Score: HISTORY 0 ECG 0 AGE 0 RISK FACTORS 0 TROPONIN 0 TOTAL: 0 If HEART score is < 3 AND both tronponin measurments are normal, the 30 day risk of a major adverse cardiac event (all-cause mortality, myocardia infarction or need for coronary revscularization) is < 1% (Sensitivity 100%, NPV 100%). Patient has a history of bipolar disorder and is on multiple psychotropic medications. Current medications: asa, citalopram 40 daily, aripiprazole 10 daily, lasix 20 daily, lomotrigine 200 BID, gabapentin 800 TID, oxycodone 10 QIDprn, plaquenil 200 BID, chlorkon 10meq daily, movantik 25 daily, maxalt prn migraine, trazadone 50 qhsp sleep, zolpidem 12.5 qhsp, robaxin 750 q4hp - Related Data Allergies/Adverse Reactions: Penicillins Allergy (Verified 02/17/20 10:29) Home Medications: asa, citalopram, aripiprazole, lasix, lomotrigine, gabapentin, oxycodone prn Past Medical History - General Information source: Patient, Outside Facility Records - Social History Smoking Status: Never Smoker Chew tobacco use (# tins/day): No Frequency of alcohol use: None Drug Abuse: None Family History: Reviewed & Not Pertinent, CVA, Hypertension Patient has homicidal ideation: No - Past Medical History Cardiac Medical History: Reports: Hx Congestive Heart Failure - resolved, per patient. See ER charts on May 23,, & --2018. Denies: Hx DVT, Hx Heart Attack, Hx Hypercholesterolemia, Hx Hypertension, Hx Pulmonary Embolism Pulmonary Medical History: Denies: Hx Asthma, Hx COPD, Hx Sleep Apnea Neurological Medical History: Denies: Hx Seizures Endocrine Medical History: Denies: Hx Diabetes Mellitus Type 1, Hx Diabetes Mellitus Type 2, Hx Hyperthyroidism, Hx Hypothyroidism Renal/ Medical History: Denies: Hx Peritoneal Dialysis GI Medical History: Reports: Hx Gastroesophageal Reflux Disease - Questionable mild reflux.. Denies: Hx Cirrhosis, Hx Hepatitis Musculoskeletal Medical History: Denies Hx Arthritis, Reports Hx Systemic Lupus Erythematosus Psychiatric Medical History: Reports: Hx Anxiety, Hx Bipolar Disorder, Hx Depression Infectious Medical History: Denies: Hx C-Diff, Hx Hepatitis, Hx MRSA Past Surgical History: Reports: Hx Abdominal Surgery - Gastric bypass, Hx Bowel Surgery - Gastric bypass, Hx Cholecystectomy - 2008, Hx Gastric Bypass Surgery - 2004 with a Daniel-en-Y, Hx Tonsillectomy, Hx Tubal Ligation - Immunizations Immunizations up to date: Yes Hx Diphtheria, Pertussis, Tetanus Vaccination: Yes Review of Systems - Review of Systems Notes: Constitutional: Negative for fever. HENT: Negative for sore throat. Eyes: Negative for visual changes. Cardiovascular: As per HPI. Respiratory: Negative for shortness of breath or cough. Gastrointestinal: As per HPI. Patient states she passed some blood in her stools. Genitourinary: No dysuria Musculoskeletal: Negative for back pain. Skin: Negative for rash. Neurological: As per HPI. 10 point ROS negative except as marked above and in HPI. Physical Exam - Vital signs Vitals: Temp 98.7 F 02/17/20 09:36 - Notes Notes: GENERAL: Tearful, anxious middle-aged female appearing otherwise in no distress. SKIN: Good turgor no rashes. HEAD: Normocephalic atraumatic. EYES: PERRLA. EOMI. Conjunctivae and sclerae clear. EARS: CANALS AND TMS CLEAR. NOSE: CLEAR. MOUTH: Moist mucosa. Good dentition. No stridor or edema. No drooling. NECK: Supple. No masses or thyromegaly. No adenopathy. Carotids 2+ without bruits. No JVD. BACK: Symmetrical with diffuse musculoskeletal tenderness. CHEST: Diffuse chest wall tenderness. Respirations unlabored. Breath sounds clear and symmetrical. HEART: Regular rhythm. No murmur gallop or rub. ABDOMEN: Soft nontender without masses, organomegaly or rebound. Bowel sounds normally active. No bruits. GENITALIA: Deferred. EXTREMITIES: No edema. No calf tenderness. Cap refill less than 1.5 seconds. Dorsalis pedis and posterior tibial pulses 3+ and symmetrical. NEUROLOGICAL: GCS 15. Alert and oriented x3. Fluent speech. Cranial nerves II through XII intact. Sensorimotor and cerebellar normal. Normal tone. PSYCHIATRIC: Anxious affect. Course - Re-evaluation Re-evalutation: 02/17/20 15:56 Patient was very anxious here but appeared quite stable in terms of objective evaluation. EKG showed no acute changes. She had 2 troponins which were normal here. She has a low heart score. Her neurologic exam is nonfocal. She reports her headache has resolved. She is scheduled for outpatient colonoscopy tomorrow. When I went back to summarize her findings I found that the charge nurse had removed her IV and discharged her while I was occupied with another unstable patient because she was impatient and did not wish to remain to discuss her results and received printed discharge instructions/follow-up instructions. - Vital Signs Vital signs: Temp Pulse Resp BP Pulse Ox 98.7 F 18 118/86 H 97 02/17/20 09:36 02/17/20 15:00 02/17/20 15:00 02/17/20 15:00 - Laboratory Result Diagrams: 02/17/20 10:00 02/17/20 10:00 Laboratory results interpreted by me: 02/17/20 10:00 BUN 5 L ALT 58 H Creatine Kinase 137 H - Diagnostic Test Radiology reviewed: Reports reviewed Radiology results interpreted by me: 02/17/20 11:10 Normal portable chest x-ray per radiologist. - EKG Interpretation by Me Additional EKG results interpreted by me: Twelve-lead EKG from 1002 hrs. reviewed contemporaneously by me showing a normal sinus rhythm with a rate of 59 and a normal QRS axis of +53 degrees. There is some mild baseline wander present secondary to movement of the patient. There are no acute ST/T wave changes. Impression normal tracing. Comparison to prior EKG from 09/22/2019 shows no significant interval change. Indication for current study: Chest pain. 02/17/20 11:10 Discharge - Discharge Clinical Impression: Migraine headache Disposition: ELOPED Referrals: MARTINA ORDONEZ NP [Primary Care Provider] - Follow up as needed
[2020-02-17 11:27] LABS: TROPONIN I < 0.012 ng/mL
[2020-02-17 15:30] VITALS: BP 118/86
== END 2020-02-17 15:44 | disposition left against medical advice (07) ==
LOC: ER 09:36
DX: G43.909 Migraine, unspecified, not intractable, without status migrainosus (principal); R07.9 Chest pain, unspecified; R11.0 Nausea; R25.2 Cramp and spasm; F41.9 Anxiety disorder, unspecified; M32.9 Systemic lupus erythematosus, unspecified; R19.5 Other fecal abnormalities; I50.9 Heart failure, unspecified; Z79.82 Long term (current) use of aspirin; Z79.899 Other long term (current) drug therapy; Z88.0 Allergy status to penicillin
CPT/HCPCS: 93005; 99281; 36415; 82553; 82550; 85025; 80053; 84484; 71045; 93010; J2060; J7030

== ENCOUNTER 2020-02-18 06:55 | Day surgery (SDC) | payer MEDICAID ==
[2020-02-18] MEDS ORDERED: PROPOFOL INJ 200 MG/20 ML VIAL IV ONE (07:25)
[2020-02-18] MEDS ORDERED: LIDOCAINE 2% INJ-PF (20 MG/ML) 10 ML AMPUL ONE (07:25)
--- NOTE | 2020-02-18 09:59 | Operative Report ---
Operative Report DATE OF SURGERY: 02/18/20 Operative Report: The risk, benefits and alternatives of the procedure including the risk of bleeding, perforation requiring surgery have been explained to the patient in detail and informed consent has been obtained. The patient is taken back to the endoscopy suite and placed in a left, lateral decubital position. Timeout was called. Propofol medication is administered. Rectal examination is done which did not reveal any masses, tears or fissures. An Olympus videoscope was introduced into the patient's rectum. The scope was then carefully advanced all the way to the cecum. The cecum was identified by the usual anatomical landmarks including the ileocecal valve as well as the appendiceal office. Photodocumentation is obtained. The scope was then sequentially pulled back via the various segments of the colon including the ascending colon, hepatic flexure, transverse colon, splenic flexure, descending colon and finally into the rectosigmoid portions of the colon. Retroflexion maneuvers performed. The risks benefits and alternatives of the procedure explained to the patient in detail and informed consent is obtained.A GIF Olympus video scope was inserted into the patient's mouth and hypopharynx, the esophagus is identified intubated and insufflated, the scope was then advanced through the esophagus stomach and duodenum, retroflexion maneuver is done, the esophagus stomach and first and second portions of the duodenum examined PREOPERATIVE DIAGNOSIS: Nausea vomiting, change of bowel habits POSTOPERATIVE DIAGNOSIS: Anastomotic ulcer status post biopsy. Redundancy of colon. Intubation of the terminal ileum biopsies rule out Crohn's disease OPERATION: Colonoscopy with biopsy, EGD with biopsy SURGEON: DANIA AMAYA ANESTHESIA: LMAC TISSUE REMOVED OR ALTERED: As noted above. COMPLICATIONS: None. ESTIMATED BLOOD LOSS: None. INTRAOPERATIVE FINDINGS: As noted above. PROCEDURE: Patient tolerated the procedure well. No immediate postprocedure complications are noted. Patient is discharged in good condition. Discharge date 02/18/2020. Discharge diet: Regular. Discharge activity: Regular. 2 to 3-week follow-up to discuss findings. Patient is instructed to call the office or proceed to the emergency room should there be any further problems or questions. Wait on the pathology.
[2020-02-18 10:37] VITALS: BP 120/85
== END 2020-02-18 11:40 | disposition home or self-care (01) ==
LOC: END 06:55
PROVIDERS: ATTEND Internal Medicine Gastroenterology
DX: K28.9 Gastrojejunal ulcer, unspecified as acute or chronic, without hemorrhage or perforation (principal); Q43.8 Other specified congenital malformations of intestine; L93.0 Discoid lupus erythematosus; I50.9 Heart failure, unspecified; Z88.0 Allergy status to penicillin; Z03.818 Encounter for observation for suspected exposure to other biological agents ruled out
CPT/HCPCS: 43239; 45380; 87635; 88305 ×2; 00813; J2704; J3490; C9803; 813

== ENCOUNTER 2020-04-08 01:31 | Emergency (ER) | payer MEDICAID ==
[2020-04-08] MEDS ORDERED: DIAZEPAM INJ 10 MG/2 ML DISP.SYRIN IV ONE ×2 (01:50→02:36)
--- NOTE | 2020-04-08 01:53 | ER Document Report ---
ED General - General Chief Complaint: Alcohol Withdrawl Stated Complaint: INVOLUNTARY SHAKING Time Seen by Provider: 04/08/20 01:36 Notes: Patient is a 39-year-old female that comes emergency department for chief complaint of alcohol withdrawals. She states that her last alcoholic drink was 8 hours ago. She states that she started having trouble focusing and shaking involuntarily badly just prior to arrival. She states that her ex- called EMS. Patient denies vomiting, seizure, injury, or any other complaints. Past medical history includes alcohol dependence with multiple rounds of detox in the past, patient does admit to having seizures in the past during alcohol detox but not otherwise. Patient also reports she has a history of lupus and takes oxycodone for this, she states she is not on any other medications for her lupus. She denies recreational drugs, smoking, or any other medical history. When asked why she stopped drinking alcohol she states she "ran out of liquor". She also states that she is still interested in detox. TRAVEL OUTSIDE OF THE [place] IN LAST 30 DAYS: No - Related Data Allergies/Adverse Reactions: Penicillins Allergy (Verified 02/17/20 10:29) Past Medical History - General Information source: Patient - Social History Smoking Status: Never Smoker Chew tobacco use (# tins/day): No Frequency of alcohol use: Heavy Drug Abuse: None Lives with: Family Family History: Reviewed & Not Pertinent, CVA, Hypertension Patient has homicidal ideation: No - Past Medical History Cardiac Medical History: Reports: Hx Congestive Heart Failure - resolved, per patient. See ER charts on May 23,, & --2018. Denies: Hx Coronary Artery Disease, Hx DVT, Hx Heart Attack, Hx Hypercholesterolemia, Hx Hypertension, Hx Pulmonary Embolism Pulmonary Medical History: Denies: Hx Asthma, Hx Bronchitis, Hx COPD, Hx Pneumonia, Hx Sleep Apnea Neurological Medical History: Denies: Hx Cerebrovascular Accident, Hx Seizures Endocrine Medical History: Denies: Hx Diabetes Mellitus Type 1, Hx Diabetes Mellitus Type 2, Hx Hyperthyroidism, Hx Hypothyroidism Renal/ Medical History: Denies: Hx Peritoneal Dialysis GI Medical History: Reports: Hx Gastroesophageal Reflux Disease - Questionable mild reflux.. Denies: Hx Cirrhosis, Hx Hepatitis Musculoskeletal Medical History: Denies Hx Arthritis, Reports Hx Systemic Lupus Erythematosus Psychiatric Medical History: Reports: Hx Anxiety, Hx Bipolar Disorder, Hx Depression Infectious Medical History: Denies: Hx C-Diff, Hx Hepatitis, Hx MRSA Past Surgical History: Reports: Hx Abdominal Surgery - Gastric bypass, Hx Bowel Surgery - Gastric bypass, Hx Cholecystectomy - 2008, Hx Gastric Bypass Surgery - 2004 with a Daniel-en-Y, Hx Tonsillectomy, Hx Tubal Ligation - Immunizations Immunizations up to date: Yes Hx Diphtheria, Pertussis, Tetanus Vaccination: Yes Review of Systems - Review of Systems Constitutional: No symptoms reported EENT: No symptoms reported Cardiovascular: No symptoms reported Respiratory: No symptoms reported Gastrointestinal: No symptoms reported Genitourinary: No symptoms reported Female Genitourinary: No symptoms reported Musculoskeletal: See HPI Skin: No symptoms reported Hematologic/Lymphatic: No symptoms reported Neurological/Psychological: See HPI Physical Exam - Vital signs Vitals: Temp 98.7 F 04/08/20 01:36 - Notes Notes: GENERAL: Alert, interactive, appears anxious but does not appear to be in distress HEAD: Normocephalic, atraumatic. EYES: Pupils equal, round, and reactive to light. Extraocular movements intact. ENT: Oral mucosa dry, tongue midline. Oropharynx unremarkable. Airway patent. LUNGS: Clear to auscultation bilaterally, no wheezes, rales, or rhonchi. No respiratory distress. Non-tender chest wall. HEART: Tachycardia, normal rhythm, no murmur ABDOMEN: Soft, non-tender. Non-distended. EXTREMITIES: Moves all 4 extremities spontaneously. No edema, normal radial and dorsalis pedis pulses bilaterally. No cyanosis. BACK: no cervical, thoracic, lumbar midline tenderness. No saddle anesthesia, normal distal neurovascular exam. Moves all extremities in full range of motion. NEUROLOGICAL: Alert and oriented x3. Normal speech. Cranial nerves II through XII grossly intact. Strength 5/5 in all extremities. PSYCH: Anxious and slightly restless but cooperative SKIN: Slightly flushed Course - Re-evaluation Re-evalutation: When I entered the room patient begins to shake her arms, she has borderline tachycardic on my exam. She reports she has not had alcohol for over 8 hours and she believes she is withdrawing. Patient was given initial dose of nixon zepam. Patient noted to be significantly intoxicated, alcohol almost 300, CBC nonspecific, chemistry shows bicarbonate of 19, LFTs slightly elevated, nonspecific otherwise. Patient has begun IV fluids. Heart rate significantly improved on reevaluation heart rate is 107. I discussed at this point with patient, she still states she wants detox. Patient given additional IV fluids, remedicated, we will repeat alcohol when she is clinically sober, this will be in approximately 5 hours based on her alcohol level. Alcohol repeated, alcoholic reduced significantly more than I expected, probably because patient was dehydrated. On evaluation patient is well-appearing, however when I entered the room she began to shake her arms again and asked for more medication. At this point I explained to patient she is clinically sober, we need to make a decision about admission versus detox versus discharge. She declines admission or detox, she states she wants a dose of Ativan and she wants to be prescribed Librium for home. She was provided with this, provided her with detox referral, discussed return precautions. Patient states understanding and agreement. - Vital Signs Vital signs: Temp Pulse Resp BP Pulse Ox 98.7 F 23 H 127/86 H 100 04/08/20 01:36 04/08/20 06:30 04/08/20 06:30 04/08/20 06:30 - Laboratory Result Diagrams: 04/08/20 01:45 04/08/20 01:45 Laboratory results interpreted by me: 04/08/20 04/08/20 04/08/20 01:45 01:45 02:10 WBC 12.3 H Hgb 15.7 H RDW 14.3 H Lymph % (Auto) 12.9 L Absolute Neuts (auto) 10.0 H Seg Neutrophils % 81.7 H Sodium 136.3 L Chloride 90 L Carbon Dioxide 19 L Anion Gap 27 H Glucose 114 H AST 105 H ALT 49 H Urine Protein >=500 H Urine Ketones 20 H Urine Blood LARGE H - EKG Interpretation by Me Additional EKG results interpreted by me: EKG shows sinus tachycardia at a rate of 122, borderline prolonged QT removal at 502, normal axis, no T wave inversions or ST segment changes in consecutive leads Discharge - Discharge Clinical Impression: Dehydration Alcohol intoxication Qualifiers: Complication of substance-induced condition: with unspecified complication Qualified Code(s): F10.929 - Alcohol use, unspecified with intoxication, unspecified Alcohol dependence Qualifiers: Substance use status: unspecified alcohol-induced disorder Qualified Code(s): F10.29 - Alcohol dependence with unspecified alcohol-induced disorder Condition: Stable Disposition: HOME, SELF-CARE Additional Instructions: You have declined treatment/detox at this time, you have elected to take Librium for alcohol detoxification. You can voluntarily present to the detox center listed below if desired. Return to the emergency department for any concerning symptoms including vomiting, severe worsening symptoms of withdrawal, or any other concerning or worsening symptoms. [facility] [address] [place] [address] , [place] [address] Hours: Open 24 hours Prescriptions: Chlordiazepoxide HCl 25 mg PO ASDIR PRN 4 Days #15 capsule PRN Reason:
[2020-04-08 02:07] LABS: ABSOLUTE LYMPHOCYTES (AUTO) 1.6 10^3/uL (0.5-4.7); ABSOLUTE MONOCYTES (AUTO) 0.6 10^3/uL (0.1-1.4); BASOPHILS % (AUTO) 0.3 % (0-2); HEMATOCRIT 44.2 % (36.0-47.0); HEMOGLOBIN 15.7 g/dL (12.0-15.5); LYMPHOCYTES % (AUTO) 12.9 % (13-45); MEAN CORPUSCULAR HGB CONC 35.6 g/dL (32.0-36.0); MEAN CORPUSCULAR VOLUME 87 fl (80-97); MONOCYTES % (AUTO) 5.1 % (3-13); PLATELET COUNT 240 10^3/uL (150-450); RED BLOOD COUNT 5.07 10^6/uL (3.72-5.28); RED CELL DISTRIBUTION WIDTH 14.3 % (11.5-14.0); SEGMENTED NEUTROPHILS % (AUTO) 81.7 % (42-78); TOTAL CELLS COUNTED % (AUTO) 100 %; WHITE BLOOD COUNT 12.3 10^3/uL (4.0-10.5)
[2020-04-08 02:30] LABS: ALBUMIN 4.5 g/dL (3.5-5.0); ALCOHOL 294 mg/dL (NONE DETECTED); ALKALINE PHOSPHATASE 117 U/L (38-126); ASPARTATE AMINO TRANSFERASE 105 U/L (14-36); BILIRUBIN,DIRECT 0.4 mg/dL (0.0-0.4); BILIRUBIN,TOTAL 0.7 mg/dL (0.2-1.3); BLOOD UREA NITROGEN 12 mg/dL (7-20); CALCIUM 8.4 mg/dL (8.4-10.2); CARBON DIOXIDE 19 mmol/L (22-30); GLUCOSE 114 mg/dL (75-110); POTASSIUM 3.7 mmol/L (3.6-5.0); TOTAL PROTEIN 6.9 g/dL (6.3-8.2)
[2020-04-08 02:34] LABS: APPEARANCE,URINE CLEAR; BILIRUBIN,URINE NEGATIVE (NEGATIVE); COLOR,URINE AMBER; GLUCOSE, URINE NEGATIVE (NEGATIVE); KETONES,URINE 20 mg/dL (NEGATIVE); LEUKOCYTE ESTERASE,URINE NEGATIVE (NEGATIVE); NITRITE,URINE NEGATIVE (NEGATIVE); PROTEIN,URINE >=500 mg/dL (NEGATIVE); URINE SPECIFIC GRAVITY 1.026; UROBILINOGEN,URINE NEGATIVE mg/dL (<2.0)
[2020-04-08 02:35] LABS: CHLORIDE 90 mmol/L (98-107)
[2020-04-08 02:36] LABS: ANION GAP 27 (5-19)
[2020-04-08 02:38] LABS: URINE AMPHETAMINES SCREEN NEGATIVE; URINE BARBITURATES SCREEN NEGATIVE; URINE BENZODIAZEPINES SCREEN NEGATIVE; URINE COCAINE SCREEN NEGATIVE; URINE MARIJUANA (THC) SCREEN NEGATIVE; URINE METHADONE SCREEN NEGATIVE; URINE PHENCYCLIDINE SCREEN NEGATIVE
[2020-04-08] MEDS ORDERED: RINGERS SOLUTION,LACTATED 1,000 ML IV ONE ×2 (02:39→04:34)
[2020-04-08] MEDS ORDERED: PROMETHAZINE HCL INJ 25 MG/1 ML VIAL IM ONE (03:00)
[2020-04-08] MEDS ORDERED: LORAZEPAM INJ 2 MG/1 ML VIAL IV ONE ×3 (04:34→07:17)
[2020-04-08 08:30] VITALS: BP 152/88
--- NOTE | 2020-04-08 09:57 | EKG REPORT ---
SEVERITY:- ABNORMAL ECG - SINUS TACHYCARDIA FIRST DEGREE AV BLOCK KURTIS, CONSIDER BIATRIAL ABNORMALITIES INFERIOR Q WAVES, PROBABLY NORMAL VARIATION BORDERLINE T ABNORMALITIES, ANTERIOR LEADS BORDERLINE PROLONGED QT INTERVAL : Confirmed by: Gretel Major 08-Apr-2020 09:57:00
== END 2020-04-08 08:10 | disposition home or self-care (01) ==
LOC: ER 01:31
DX: F10.229 Alcohol dependence with intoxication, unspecified (principal); E86.0 Dehydration; Z79.891 Long term (current) use of opiate analgesic; Z98.84 Bariatric surgery status; Z88.0 Allergy status to penicillin
CPT/HCPCS: 93005; 96376; 99284; 96372; 96361; 96374; 96375; 36415; 80307 ×2; 83690; 83735; 84703; 85025; 80053; 81001; 93010; J3360; J2060; J2550; J7120

== ENCOUNTER → 2020-07-10 | Outpatient (CLI) | payer MEDICAID ==
--- NOTE | 2020-07-10 13:10 | RADIOLOGY REPORT (SQ) ---
EXAM DESCRIPTION: CHEST 2 VIEWS IMAGES COMPLETED DATE/TIME: 07/10/2020 12:57 pm REASON FOR STUDY: SOB COMPARISON: 02/17/2020 EXAM PARAMETERS: NUMBER OF VIEWS: two views TECHNIQUE: Digital Frontal and Lateral radiographic views of the chest acquired. RADIATION DOSE: NA LIMITATIONS: none FINDINGS: LUNGS AND PLEURA: No consolidation. Mild prominence of basilar interstitial markings. No definite effusion. No pneumothorax. MEDIASTINUM AND HILAR STRUCTURES: No masses or contour abnormalities. HEART AND VASCULAR STRUCTURES: Heart normal size. No evidence for failure. BONES: No acute findings. HARDWARE: None in the chest. OTHER: No other significant finding. IMPRESSION: Mild prominence of interstitial markings which is nonspecific. This could represent a m ild interstitial pneumonitis. There is no focal consolidation. TECHNICAL DOCUMENTATION: JOB ID: [id number] [employer]- All Rights Reserved Reading location - IP/workstation name: [email or web address]
== END ==
LOC: RAD 12:22
PROVIDERS: ATTEND Nurse Practitioner Adult Health
DX: R06.02 Shortness of breath (principal)
CPT/HCPCS: 71046